=== PATIENT | male | born 1945 | race Caucasian/White ===

== ENCOUNTER 2018-10-31 03:51 | Emergency (ER) | payer MEDICARE ==
[2018-10-31] MEDS ORDERED: SODIUM CHLORIDE 0.9% 1,000 ML IV STA (04:01)
[2018-10-31] MEDS ORDERED: MORPHINE SULFATE 4 MG/ML SYRINGE IV STA (04:01)
--- NOTE | 2018-10-31 04:02 | ED ---
Abdominal Pain HPI - General Chief Complaint: Abdominal Pain Stated Complaint: Poss appendicitis Time Seen by Provider: 10/31/18 03:58 Source: patient, family, RN notes reviewed, old records reviewed Mode of arrival: wheelchair Limitations: no limitations - History of Present Illness Initial Comments: This is a 73-year-old male the ER for evaluation. Patient resents today for evaluation of right-sided flank pain. Right-sided abdominal pain. Patient states he has history of kidney stones was concern for appendicitis since had fever and chills. Nausea no vomiting loose bowel movements. No travel history no sick contacts. No prior surgical history. No modifying factors for pain or symptoms at home. MD Complaint: abdominal pain, flank pain (Right-sided) -: hour(s) Location: RLQ, suprapubic Radiation: R flank Migration to: RLQ, suprapubic Severity: moderate Severity scale (1-10): 4 Quality: aching Consistency: constant Improves With: nothing Worsens With: nothing Associated Symptoms: nausea, vomiting, diarrhea - Related Data Allergies Allergy/AdvReac Type Severity Reaction Status Date / Time Penicillins Allergy Nausea & Verified 10/31/18 04:01 Vomiting Review of Systems ROS Statement: Those systems with pertinent positive or pertinent negative responses have been documented in the HPI. ROS Other: All systems not noted in ROS Statement are negative. Past Medical History Past Medical History: No Reported History History of Any Multi-Drug Resistant Organisms: None Reported Past Surgical History: Prostate Surgery Past Psychological History: No Psychological Hx Reported Smoking Status: Never smoker Past Alcohol Use History: None Reported Past Drug Use History: None Reported General Exam Limitations: no limitations General appearance: alert, in no apparent distress Head exam: Present: atraumatic, normocephalic, normal inspection Eye exam: Present: normal appearance, PERRL, EOMI. Absent: scleral icterus, conjunctival injection, periorbital swelling ENT exam: Present: normal exam, mucous membranes moist Neck exam: Present: normal inspection. Absent: tenderness, meningismus, lymphadenopathy Respiratory exam: Present: normal lung sounds bilaterally. Absent: respiratory distress, wheezes, rales, rhonchi, stridor Cardiovascular Exam: Present: regular rate, normal rhythm, normal heart sounds. Absent: systolic murmur, diastolic murmur, rubs, gallop, clicks GI/Abdominal exam: Present: soft, normal bowel sounds. Absent: distended, tenderness, guarding, rebound, rigid Extremities exam: Present: normal inspection, full ROM, normal capillary refill. Absent: tenderness, pedal edema, joint swelling, calf tenderness Back exam: Present: normal inspection Neurological exam: Present: alert, oriented X3, CN II-XII intact Psychiatric exam: Present: normal affect, normal mood Skin exam: Present: warm, dry, intact, normal color. Absent: rash Course Vital Signs 10/31/18 10/31/18 03:56 06:28 Temperature 97.8 F 98.9 F Pulse Rate 76 89 Respiratory 20 19 Rate Blood Pressure 166/84 147/85 O2 Sat by Pulse 97 98 Oximetry Medical Decision Making - Medical Decision Making 73 male the ER for evaluation of bowel pain flank pain. No kidney stones or acute findings found on CAT scan today. Patient does have some blood in the uri ne likely recently passed kidney stone oh. Patient given pain medication and pain control currently in no acute distress and can be discharged home - Lab Data Result diagrams: 10/31/18 04:05 10/31/18 04:05 Lab Results 10/31/18 10/31/18 10/31/18 Range/Units 04:05 04:05 04:05 WBC 9.2 (3.8-10.6) k/uL RBC 5.02 (4.30-5.90) m/uL Hgb 15.1 (13.0-17.5) gm/dL Hct 44.8 (39.0-53.0) % MCV 89.3 (80.0-100.0) fL MCH 30.0 (25.0-35.0) pg MCHC 33.6 (31.0-37.0) g/dL RDW 13.6 (11.5-15.5) % Plt Count 164 (150-450) k/uL Neutrophils % 81 % Lymphocytes % 14 % Monocytes % 4 % Eosinophils % 1 % Basophils % 0 % Neutrophils # 7.4 (1.3-7.7) k/uL Lymphocytes # 1.3 (1.0-4.8) k/uL Monocytes # 0.4 (0-1.0) k/uL Eosinophils # 0.1 (0-0.7) k/uL Basophils # 0.0 (0-0.2) k/uL Sodium 143 (137-145) mmol/L Potassium 3.4 L (3.5-5.1) mmol/L Chloride 107 (98-107) mmol/L Carbon Dioxide 27 (22-30) mmol/L Anion Gap 9 mmol/L BUN 19 (9-20) mg/dL Creatinine 0.98 (0.66-1.25) mg/dL Est GFR (CKD-EPI)AfAm 90 (>60 ml/min/1.73 sqM) Est GFR (CKD-EPI)NonAf 77 (>60 ml/min/1.73 sqM) Glucose 134 H (74-99) mg/dL Plasma Lactic Acid Abdulaziz 1.1 (0.7-2.0) mmol/L Calcium 9.9 (8.4-10.2) mg/dL Total Bilirubin 0.7 (0.2-1.3) mg/dL AST 25 (17-59) U/L ALT 22 (21-72) U/L Alkaline Phosphatase 89 (38-126) U/L Creatine Kinase 371 H (55-170) U/L Troponin I (0.000-0.034) ng/mL Total Protein 7.2 (6.3-8.2) g/dL Albumin 4.4 (3.5-5.0) g/dL Amylase 65 (30-110) U/L Lipase 107 (23-300) U/L Urine Color Urine Appearance (Clear) Urine pH (5.0-8.0) Ur Specific Cast[place] (1.001-1.035) Urine Protein (Negative) Urine Glucose (UA) (Negative) Urine Ketones (Negative) Urine Blood (Negative) Urine Nitrite (Negative) Urine Bilirubin (Negative) Urine Urobilinogen (<2.0) mg/dL Ur Leukocyte Esterase (Negative) Urine RBC (0-5) /hpf Urine WBC (0-5) /hpf Urine Mucus (None) /hpf 10/31/18 10/31/18 Range/Units 04:05 04:05 WBC (3.8-10.6) k/uL RBC (4.30-5.90) m/uL Hgb (13.0-17.5) gm/dL Hct (39.0-53.0) % MCV (80.0-100.0) fL MCH (25.0-35.0) pg MCHC (31.0-37.0) g/dL RDW (11.5-15.5) % Plt Count (150-450) k/uL Neutrophils % % Lymphocytes % % Monocytes % % Eosinophils % % Basophils % % Neutrophils # (1.3-7.7) k/uL Lymphocytes # (1.0-4.8) k/uL Monocytes # (0-1.0) k/uL Eosinophils # (0-0.7) k/uL Basophils # (0-0.2) k/uL Sodium (137-145) mmol/L Potassium (3.5-5.1) mmol/L Chloride (98-107) mmol/L Carbon Dioxide (22-30) mmol/L Anion Gap mmol/L BUN (9-20) mg/dL Creatinine (0.66-1.25) mg/dL Est GFR (CKD-EPI)AfAm (>60 ml/min/1.73 sqM) Est GFR (CKD-EPI)NonAf (>60 ml/min/1.73 sqM) Glucose (74-99) mg/dL Plasma Lactic Acid Abdulaziz (0.7-2.0) mmol/L Calcium (8.4-10.2) mg/dL Total Bilirubin (0.2-1.3) mg/dL AST (17-59) U/L ALT (21-72) U/L Alkaline Phosphatase (38-126) U/L Creatine Kinase (55-170) U/L Troponin I <0.012 (0.000-0.034) ng/mL Total Protein (6.3-8.2) g/dL Albumin (3.5-5.0) g/dL Amylase (30-110) U/L Lipase (23-300) U/L Urine Color Light Yellow Urine Appearance Clear (Clear) Urine pH 7.0 (5.0-8.0) Ur Specific [place] 1.016 (1.001-1.035) Urine Protein Trace H (Negative) Urine Glucose (UA) Negative (Negative) Urine Ketones 1+ H (Negative) Urine Blood Moderate H (Negative) Urine Nitrite Negative (Negative) Urine Bilirubin Negative (Negative) Urine Urobilinogen <2.0 (<2.0) mg/dL Ur Leukocyte Esterase Negative (Negative) Urine RBC >182 H (0-5) /hpf Urine WBC 1 (0-5) /hpf Urine Mucus Rare H (None) /hpf - Radiology Data Radiology results: report reviewed (CT abdomen pelvis negative for acute disease), image reviewed Disposition Clinical Impression: Kidney stones Disposition: HOME SELF-CARE Condition: Good Instructions (If sedation given, give patient instructions): Kidney Stones (ED) Is patient prescribed a controlled substance at d/c from ED?: No Referrals: None,Stated [Primary Care Provider] - 1-2 days
[2018-10-31] MEDS ORDERED: ONDANSETRON 4 MG/2 ML VIAL IVP STA ×2 (04:12→04:13)
[2018-10-31 04:38] LABS: Appearance,Urine Clear (Clear); Bilirubin,Urine Negative (Negative); Blood,Urine Moderate (Negative); Color,Urine Light Yellow; Glucose,Urine (UA) Negative (Negative); Ketones,Urine 1+ (Negative); Leukocyte Esterase,Urine Negative (Negative); Mucus,Urine Rare /hpf; Nitrite,Urine Negative (Negative); Protein,Urine Trace (Negative); RBC,Urine >182 /hpf (0-5); Specific Gravity,Urine 1.016 (1.001-1.035); Urobilinogen,Urine <2.0 mg/dL (<2.0); WBC,Urine 1 /hpf (0-5)
[2018-10-31 04:44] LABS: Albumin 4.4 g/dL (3.5-5.0); Calcium 9.9 mg/dL (8.4-10.2); Potassium 3.4 mmol/L (3.5-5.1); Total Bilirubin 0.7 mg/dL (0.2-1.3); Total Protein 7.2 g/dL (6.3-8.2)
[2018-10-31] MEDS ORDERED: HYDROmorphone 1 MG/ML 1 ML SYRINGE IVP STA (04:47)
[2018-10-31 04:50] LABS: Basophils % (A) 0 %; Eosinophils # (A) 0.1 k/uL (0-0.7); Eosinophils % (A) 1 %; HCT 44.8 % (39.0-53.0); HGB 15.1 gm/dL (13.0-17.5); Lymphocytes # (A) 1.3 k/uL (1.0-4.8); Lymphocytes % (A) 14 %; MCHC 33.6 g/dL (31.0-37.0); MCV 89.3 fL (80.0-100.0); Mean Platelet Volume 7.2; Monocytes # (A) 0.4 k/uL (0-1.0); Monocytes % (A) 4 %; Neutrophils # (A) 7.4 k/uL (1.3-7.7); Neutrophils % (A) 81 %; Platelet Count 164 k/uL (150-450); RBC 5.02 m/uL (4.30-5.90); RDW 13.6 % (11.5-15.5); WBC 9.2 k/uL (3.8-10.6)
--- NOTE | 2018-10-31 05:40 | CT ---
EXAM: CT Abdomen and Pelvis With Intravenous Contrast CLINICAL HISTORY: RLQ pain, Bur727/100ml, no previous DLP 726.1 Hx of prostate remove TECHNIQUE: Axial computed tomography images of the abdomen and pelvis with intravenous contrast. CTDI is 13.5 mGy and DLP is 726.1 mGy-cm. This CT exam was performed using one or more of the following dose reduction techniques: automated exposure control, adjustment of the mA and/or kV according to patient size, and/or use of iterative reconstruction technique. Coronal and sagittal reconstructions are performed. 444 images received COMPARISON: No relevant prior studies available. FINDINGS: Lung bases: Moderate amount of bibasilar atelectasis. Pneumonia is more of a concern on the left. ABDOMEN: Liver: Unremarkable. No mass. Gallbladder and bile ducts: Unremarkable. No calcified stones. No ductal dilation. Pancreas: Unremarkable. No mass. No ductal dilation. Spleen: Unremarkable. No splenomegaly. Adrenals: Unremarkable. No mass. Kidneys and ureters: Nonobstructing bilateral renal stones . Largest is in right kidney measuring up to 7 mm. Right renal cysts. Largest measures about 3 cm in largest dimension. Stomach and bowel: Unremarkable. No obstruction. No mucosal thickening. PELVIS: Appendix: No findings to suggest acute appendicitis. Bladder: Unremarkable. No mass. Reproductive: Unremarkable as visualized. ABDOMEN and PELVIS: Intraperitoneal space: Unremarkable. No free air. No significant fluid collection. Bones/joints: Osteopenia. Mild to moderate degenerative changes. No acute fracture. No dislocation. Soft tissues: Unremarkable. Vasculature: Unremarkable. No abdominal aortic aneurysm. Lymph nodes: Unremarkable. No enlarged lymph nodes. Other findings: Midline abdominal scar. IMPRESSION: 1. Nonobstructing bilateral renal stones . 2. Moderate amount of bibasilar atelectasis. Pneumonia is more of a concern on the left.
[2018-10-31] MEDS ORDERED: TAMSULOSIN 0.4 MG CAP.ER.24H PO STA (05:53)
[2018-10-31] MEDS ORDERED: ACET/COD 300 MG/30 MG STARTER PACK 6 TAB BTL PO STA (05:53)
[2018-10-31] MEDS ORDERED: Acetaminophen-Codeine 300-30mg TAB PO STA (05:53)
[2018-10-31] MEDS ORDERED: KETOROLAC 30 MG/ML 1 ML VIAL IVP STA (05:53)
[2018-10-31 06:29] VITALS: BP 147/85; PULSE 89; RESP 19; TEMP 98.9
== END 2018-10-31 06:29 | disposition home or self-care (01) ==
LOC: EC 03:51
DX: N20.0 Calculus of kidney (principal); R19.7 Diarrhea, unspecified; Z88.0 Allergy status to penicillin
CPT/HCPCS: 36415; 80053; 82150; 82550; 83605; 83690; 84484; 85025; 81001; 87086; 74177; 99285; 96374; 96375 ×3; 96361; J2270; J2405; J1885; J1170; Q9967

== ENCOUNTER 2019-02-05 20:44 | Emergency (ER) | payer MEDICARE ==
[2019-02-05] MEDS ORDERED: diphenhydrAMINE 50 MG/ML 1 ML VIAL IVP STA (21:19)
[2019-02-05] MEDS ORDERED: SODIUM CHLORIDE 0.9% 1,000 ML IV ONE (21:19)
[2019-02-05] MEDS ORDERED: methylPREDNISolone SOD SUCCI 125 MG/2 ML VIAL IV STA (21:19)
[2019-02-05] MEDS ORDERED: FAMOTIDINE 20 MG/2 ML VIAL IV STA (21:19)
[2019-02-05] MEDS ORDERED: ASPIRIN-ACET-CAFF 250-250-65MG 1 EACH TAB PO STA (23:35)
--- NOTE | 2019-02-05 23:35 | ED ---
Allergic Reaction HPI - General Chief complaint: Allergic Reaction Stated complaint: Syncope,20+ Bee stings Time Seen by Provider: 02/05/19 21:19 Source: patient, family Mode of arrival: ambulatory Limitations: no limitations - History of Present Illness Initial Comments: 73-year-old male patient presents to the emergency department today for evaluation after being stung upwards of 20 times by bees or wasps. Patient states this occurred approximately one hour ago. Patient states he's been feeling dizzy and faint. Patient states he did have a syncopal episode. Patient states he is experiencing generalized itching, burning, and stinging to his skin. Denies any lip or tongue swelling. Denies any throat swelling or shortness of breath. Patient states he has been stung in the past and had local reactions only. Patient states he did take 50 mg of Benadryl prior to arrival. He denies any chest pain or abdominal pain. Patient denies any recent fever, chills, nausea, vomiting, diarrhea, constipation, back pain, numbness, tingling, hematuria, dysuria, urinary urgency, urinary frequency, headache, visual changes, or any other complaints. - Related Data Previous Rx's Medication Instructions Recorded EPINEPHrine [Epipen 2-Chuy] 0.3 mg IM ONCE PRN #1 pack 02/05/19 Famotidine [Pepcid] 20 mg PO DAILY #5 tablet 02/05/19 predniSONE 50 mg PO DAILY #5 tablet 02/05/19 Allergies Allergy/AdvReac Type Severity Reaction Status Date / Time Penicillins Allergy Nausea & Verified 02/05/19 21:14 Vomiting Review of Systems ROS Statement: Those systems with pertinent positive or pertinent negative responses have been documented in the HPI. ROS Other: All systems not noted in ROS Statement are negative. Past Medical History Past Medical History: GERD/Reflux History of Any Multi-Drug Resistant Organisms: None Reported Past Surgical History: Prostate Surgery Past Psychological History: No Psychological Hx Reported Smoking Status: Never smoker Past Alcohol Use History: None Reported Past Drug Use History: None Reported General Exam Limitations: no limitations General appearance: alert, in no apparent distress, other (This is a well- developed, well-nourished elderly male patient in no acute distress. Vital signs upon presentation are temperature 97.8F, pulse 127, respirations 22, blood pressure 94/60, pulse ox 96% on room air.) Eye exam: Present: normal appearance, PERRL, EOMI. Absent: scleral icterus, conjunctival injection, periorbital swelling ENT exam: Present: normal exam, normal oropharynx, mucous membranes moist Respiratory exam: Present: normal lung sounds bilaterally. Absent: respiratory distress, wheezes, rales, rhonchi, stridor Cardiovascular Exam: Present: normal rhythm, tachycardia, normal heart sounds. Absent: systolic murmur, diastolic murmur, rubs, gallop, clicks GI/Abdominal exam: Present: soft, normal bowel sounds. Absent: distended, tenderness, guarding, rebound, rigid Neurological exam: Present: alert, oriented X3, CN II-XII intact Psychiatric exam: Present: normal affect, normal mood Skin exam: Present: warm, dry, intact, normal color, rash (Generalized erythema) Course Vital Signs 02/05/19 02/05/19 02/05/19 21:10 21:33 21:57 Temperature 97.8 F Pulse Rate 127 H 100 97 Pulse Rate [ 125 H Gluer And Wedger ] Respiratory 22 16 16 Rate Blood Pressure 94/60 112/83 118/96 O2 Sat by Pulse 96 96 99 Oximetry 02/05/19 23:43 Temperature 97.5 F L Pulse Rate 94 Pulse Rate [ Gluer And Wedger ] Respiratory 18 Rate Blood Pressure 120/88 O2 Sat by Pulse 95 Oximetry Medical Decision Making - Medical Decision Making 73-year-old male patient presents to the emergency department today for evaluation after being stung upwards of 20 times by bees or wasps. Patient did have a syncopal episode after this happened. He is reporting feeling dizzy with burning and itching to his skin. Physical examination did reveal generalized skin erythema. No lip or tongue swelling. Lungs are clear to auscultation with good air movement. Blood pressure is slightly low at 94/50 upon arrival. He is tachycardic in the 120s. Patient had an IV started, EKG performed, and medications given. Upon reevaluation patient is reporting improve symptoms. He is breathing without difficulty. Vital signs have improved. Patient is requesting discharge home at this time. He'll be discharged with prescriptions for Pepcid, prednisone, and epi-pens. He is instructed to take Benadryl every 6 hours as needed. He is instructed to follow-up with his primary care physician for recheck in 1-2 days. Return parameters were discussed in detail. He is urged to call an ambulance if symptoms return or worsen. He verbalizes understanding and agrees this plan. - EKG Data -: EKG Interpreted by Me EKG Comments: EKG obtained at 2124 shows sinus tachycardia with a ventricular rate of 122, MD interval 140, QRS duration 82, QT 334, QTC 475. No evidence of ST elevation or depression. Disposition Clinical Impression: Allergic reaction to bee sting Disposition: HOME SELF-CARE Condition: Good Instructions (If sedation given, give patient instructions): Insect Bite or Sting (ED), General Allergic Reaction (ED) Additional Instructions: Take medications as directed. Continue Benadryl every 6 hours as needed for symptom relief. Use EpiPen as needed. Follow-up with your primary care physician for recheck in 1-2 days. Return to the emergency department or call ambulance immediately for any new, worsening, or concerning symptoms. Prescriptions: EPINEPHrine [Epipen 2-Chuy] 0.3 mg IM ONCE PRN #1 pack PRN Reason: Anaphylaxis Famotidine [Pepcid] 20 mg PO DAILY #5 tablet predniSONE 50 mg PO DAILY #5 tablet Is patient prescribed a controlled substance at d/c from ED?: No Referrals: Zacarias Lay MD [Primary Care Provider] - 1-2 days Time of Disposition: 23:35
[2019-02-05 23:45] VITALS: BP 120/88; PULSE 94; RESP 18; TEMP 97.5
== END 2019-02-05 23:51 | disposition home or self-care (01) ==
LOC: EC 20:44
DX: T63.441A Toxic effect of venom of bees, accidental (unintentional), initial encounter (principal); R03.1 Nonspecific low blood-pressure reading; R00.0 Tachycardia, unspecified; Z88.0 Allergy status to penicillin
CPT/HCPCS: 99285; 96374; 96375 ×2; 96361; J1200; J2930

== ENCOUNTER 2019-04-23 19:33 | Emergency (ER) | payer MEDICARE ==
[2019-04-23 19:43] VITALS: RESP 18
[2019-04-23] MEDS ORDERED: SODIUM CHLORIDE 0.9% 1,000 ML IV STA ×2 (20:42)
[2019-04-23] MEDS ORDERED: KETOROLAC 30 MG/ML 1 ML VIAL IVP STA (20:42)
[2019-04-23 20:53] LABS: Appearance,Urine Clear (Clear); Bilirubin,Urine Negative (Negative); Blood,Urine Large (Negative); Color,Urine Light Red; Glucose,Urine (UA) Negative (Negative); Ketones,Urine 1+ (Negative); Leukocyte Esterase,Urine Trace (Negative); Nitrite,Urine Negative (Negative); PH, Urine 6.5 (5.0-8.0); Protein,Urine 1+ (Negative); RBC,Urine >182 /hpf (0-5); Specific Gravity,Urine 1.017 (1.001-1.035); Urobilinogen,Urine <2.0 mg/dL (<2.0)
[2019-04-23 21:23] LABS: Basophils # (A) 0.1 k/uL (0-0.2); Basophils % (A) 1 %; Eosinophils % (A) 1 %; HCT 48.4 % (39.0-53.0); HGB 16.3 gm/dL (13.0-17.5); Lymphocytes # (A) 0.7 k/uL (1.0-4.8); Lymphocytes % (A) 8 %; MCH 31.3 pg (25.0-35.0); MCHC 33.7 g/dL (31.0-37.0); MCV 92.8 fL (80.0-100.0); Mean Platelet Volume 6.2; Monocytes # (A) 0.3 k/uL (0-1.0); Monocytes % (A) 3 %; Neutrophils # (A) 7.7 k/uL (1.3-7.7); Neutrophils % (A) 88 %; Platelet Count 205 k/uL (150-450); RBC 5.22 m/uL (4.30-5.90); RDW 12.2 % (11.5-15.5); WBC 8.8 k/uL (3.8-10.6)
--- NOTE | 2019-04-23 21:24 | XR ---
EXAMINATION TYPE: XR KUB DATE OF EXAM: 04/23/2019 COMPARISON: NONE HISTORY: Pain TECHNIQUE: Single supine KUB image of the abdomen is obtained FINDINGS: Small bowel demonstrates no evidence for dilatation or air fluid levels. Gas and fecal material is seen in non-distended colon. No convincing evidence for pneumoperitoneum. No unusual calcifications. The lung bases are clear. The osseous structures are intact. IMPRESSION: 1. Overall nonobstructive bowel gas pattern.
[2019-04-23 21:28] LABS: ALT 30 U/L (21-72); AST 25 U/L (17-59); African American GFR (CKD) >90 (>60 ml/min/1.73 sqM); Albumin 4.7 g/dL (3.5-5.0); Alkaline Phosphatase 84 U/L (38-126); Anion Gap 8 mmol/L; Blood Urea Nitrogen 24 mg/dL (9-20); Calcium 10.2 mg/dL (8.4-10.2); Carbon Dioxide 29 mmol/L (22-30); Chloride 104 mmol/L (98-107); Glucose 135 mg/dL (74-99); Non-African American GFR(CKD) 86 (>60 ml/min/1.73 sqM); Potassium 3.9 mmol/L (3.5-5.1); Sodium 141 mmol/L (137-145); Total Bilirubin 0.6 mg/dL (0.2-1.3); Total Protein 7.8 g/dL (6.3-8.2)
--- NOTE | 2019-04-23 21:30 | CT ---
EXAMINATION TYPE: CT abdomen pelvis wo con DATE OF EXAM: 04/23/2019 COMPARISON: 10/31/2018 HISTORY: Left sided flank pain. CT DLP: 367.4 mGycm Examination of the solid and hollow viscera is limited given the lack of contrast. FINDINGS: LUNG BASES: No evidence for nodule. No evidence for infiltrate. Chronic elevation left hemidiaphragm. LIVER/GB: The gallbladder is surgically absent. No space-occupying hepatic lesion. PANCREAS: No pancreatic mass identified. No inflammatory process seen. SPLEEN: No evidence for splenomegaly. No intrasplenic lesions seen. ADRENALS: No adrenal nodules identified. No evidence for thickening. KIDNEYS: 4 mm calculus distal left ureter at the approximate S2 level resulting in mild left-sided hy dronephrosis. Nonobstructing calculi right kidney. Right renal cystic lesion measuring 2.8 cm. BOWEL: Appendix has a normal appearance. No evidence of bowel obstruction. No inflammatory process. Lymph nodes: No evidence for adenopathy greater than 1 cm. Abdominal aorta: Atheromatous changes seen. No evidence for aneurysm. Genital organs: No significant abnormality. Other: No significant abnormality. IMPRESSION: 4 mm calculus distal left ureter at the approximate S2 level resulting in mild left-sided hydronephro sis.
[2019-04-23] MEDS ORDERED: TAMSULOSIN 0.4 MG CAP.ER.24H PO STA (22:21)
[2019-04-23 22:37] VITALS: BP 127/78; PULSE 82; TEMP 98
--- NOTE | 2019-04-23 22:44 | ED ---
Abdominal Pain HPI - General Chief Complaint: Abdominal Pain Stated Complaint: kidney stones Time Seen by Provider: 04/23/19 20:17 Source: patient, RN notes reviewed Mode of arrival: ambulatory Limitations: no limitations - History of Present Illness Initial Comments: This is 73-year-old male with a history kidney stones who states he had the onset earlier today of left-sided flank pain feels very severe 13/10 severity he states it feels like previous kidney stones he also had gross hematuria. He denies any fevers chills nausea vomiting sweats or other symptoms. MD Complaint: flank pain - Related Data Previous Rx's Medication Instructions Recorded EPINEPHrine [Epipen 2-Chuy] 0.3 mg IM ONCE PRN #1 pack 02/05/19 Famotidine [Pepcid] 20 mg PO DAILY #5 tablet 02/05/19 predniSONE 50 mg PO DAILY #5 tablet 02/05/19 Ketorolac [Toradol] 10 mg PO Q6HR #20 tab 04/23/19 Tamsulosin HCl [Flomax] 0.4 mg PO DAILY #7 capsule 04/23/19 Allergies Allergy/AdvReac Type Severity Reaction Status Date / Time Penicillins Allergy Nausea & Verified 04/23/19 19:43 Vomiting codeine AdvReac Abdominal Verified 04/23/19 19:43 Pain Review of Systems ROS Statement: Those systems with pertinent positive or pertinent negative responses have been documented in the HPI. ROS Other: All systems not noted in ROS Statement are negative. Past Medical History Past Medical History: GERD/Reflux History of Any Multi-Drug Resistant Organisms: None Reported Past Surgical History: Prostate Surgery Past Psychological History: No Psychological Hx Reported Smoking Status: Never smoker Past Alcohol Use History: None Reported Past Drug Use History: None Reported General Exam - General Exam Comments Initial Comments: This is a well-developed well-nourished awake alert oriented 3 male Limitations: no limitations General appearance: alert, in distress Head exam: Present: atraumatic, normocephalic, normal inspection Eye exam: Present: normal appearance, PERRL, EOMI. Absent: scleral icterus, conjunctival injection, periorbital swelling ENT exam: Present: normal exam, mucous membranes moist Neck exam: Present: normal inspection. Absent: tenderness, meningismus, lympha denopathy Respiratory exam: Present: normal lung sounds bilaterally. Absent: respiratory distress, wheezes, rales, rhonchi, stridor Cardiovascular Exam: Present: regular rate, normal rhythm, normal heart sounds. Absent: systolic murmur, diastolic murmur, rubs, gallop, clicks GI/Abdominal exam: Present: soft, tenderness (Very minimal tenderness palpation over left lower quadrant left flank area. No guarding rebound masses or bruits), normal bowel sounds. Absent: distended, guarding, rebound, rigid Extremities exam: Present: normal inspection, full ROM, normal capillary refill. Absent: tenderness, pedal edema, joint swelling, calf tenderness Back exam: Present: normal inspection, other (No overt CVA tenderness.) Neurological exam: Present: alert, oriented X3, CN II-XII intact Psychiatric exam: Present: normal affect, normal mood Skin exam: Present: warm, dry, intact, normal color. Absent: rash Course Vital Signs 04/23/19 04/23/19 19:40 22:37 Temperature 98.7 F 98 F Pulse Rate 80 82 Respiratory 18 18 Rate Blood Pressure 165/90 127/78 O2 Sat by Pulse 96 98 Oximetry Medical Decision Making - Medical Decision Making Patient did get relief from the pain he will be discharged with instructions increase oral fluids and medications as directed - Lab Data Result diagrams: 04/23/19 20:47 04/23/19 20:47 Lab Results 04/23/19 04/23/19 04/23/19 Range/Units 20:14 20:47 20:47 WBC 8.8 (3.8-10.6) k/uL RBC 5.22 (4.30-5.90) m/uL Hgb 16.3 (13.0-17.5) gm/dL Hct 48.4 (39.0-53.0) % MCV 92.8 (80.0-100.0) fL MCH 31.3 (25.0-35.0) pg MCHC 33.7 (31.0-37.0) g/dL RDW 12.2 (11.5-15.5) % Plt Count 205 (150-450) k/uL Neutrophils % 88 % Lymphocytes % 8 % Monocytes % 3 % Eosinophils % 1 % Basophils % 1 % Neutrophils # 7.7 (1.3-7.7) k/uL Lymphocytes # 0.7 L (1.0-4.8) k/uL Monocytes # 0.3 (0-1.0) k/uL Eosinophils # 0.0 (0-0.7) k/uL Basophils # 0.1 (0-0.2) k/uL Sodium 141 (137-145) mmol/L Potassium 3.9 (3.5-5.1) mmol/L Chloride 104 (98-107) mmol/L Carbon Dioxide 29 (22-30) mmol/L Anion Gap 8 mmol/L BUN 24 H (9-20) mg/dL Creatinine 0.87 (0.66-1.25) mg/dL Est GFR (CKD-EPI)AfAm >90 (>60 ml/min/1.73 sqM) Est GFR (CKD-EPI)NonAf 86 (>60 ml/min/1.73 sqM) Glucose 135 H (74-99) mg/dL Calcium 10.2 (8.4-10.2) mg/dL Total Bilirubin 0.6 (0.2-1.3) mg/dL AST 25 (17-59) U/L ALT 30 (21-72) U/L Alkaline Phosphatase 84 (38-126) U/L Total Protein 7.8 (6.3-8.2) g/dL Albumin 4.7 (3.5-5.0) g/dL Lipase 78 (23-300) U/L Urine Color Light Red Urine Appearance Clear (Clear) Urine pH 6.5 (5.0-8.0) Ur Specific Chambers 1.017 (1.001-1.035) Urine Protein 1+ H (Negative) Urine Glucose (UA) Negative (Negative) Urine Ketones 1+ H (Negative) Urine Blood Large H (Negative) Urine Nitrite Negative (Negative) Urine Bilirubin Negative (Negative) Urine Urobilinogen <2.0 (<2.0) mg/dL Ur Leukocyte Esterase Trace H (Negative) Urine RBC >182 H (0-5) /hpf - Radiology Data Radiology results: report reviewed (Imaging was reviewed and report reviewed evidence of a 4 mm left ureterolithiasis at the level of about L2. Very mild hydronephrosis), image reviewed Disposition Clinical Impression: Kidney stone on left side, Renal colic on left side, Hematuria Disposition: HOME SELF-CARE Condition: Good Instructions (If sedation given, give patient instructions): Kidney Stones (ED), Renal Colic (ED), Flank Pain (ED), Hematuria (ED) Prescriptions: Tamsulosin HCl [Flomax] 0.4 mg PO DAILY #7 capsule Ketorolac [Toradol] 10 mg PO Q6HR #20 tab Is patient prescribed a controlled substance at d/c from ED?: No Referrals: Zacarias Lay MD [Primary Care Provider] - 1-2 days
== END 2019-04-23 22:56 | disposition home or self-care (01) ==
LOC: EC 19:33
DX: N20.0 Calculus of kidney (principal); Z88.5 Allergy status to narcotic agent; Z88.0 Allergy status to penicillin
CPT/HCPCS: 36415; 80053; 83690; 85025; 81001; 87086; 74018; 74176; 99284; 96374; 96361 ×2; J1885

== ENCOUNTER → 2019-08-08 | Day surgery (SDC) | payer MEDICARE ==
[2019-08-07 11:16] VITALS: BMI 20.2
[~2019-08-08] MED LIST: LACTATED RINGERS 1,000 ML IV SCH; LIDOCAINE 1% (10MG/ML) FOR IV START INTRADERMA PRN; PROPOFOL 10 MG/ML 20 ML VIAL IV ONE
[2019-08-08 08:49] VITALS: TEMP 98.1
[2019-08-08 08:51] LABS: Glucose,Whole Blood 92 mg/dL (75-99)
--- NOTE | 2019-08-08 09:13 | P.PCN ---
Date of Procedure: 08/08/19 Procedure(s) Performed: BRIEF HISTORY: Patient is a 73-year-old pleasant white male scheduled for an elective colonoscopy as a part of evaluation of positive cologuard. His last colonoscopy was 10 years ago. PROCEDURE PERFORMED: Colonoscopy. PREOPERATIVE DIAGNOSIS: Positive cologuard. IV sedation per Anesthesia. PROCEDURE: After informed consent was obtained, the patient, was brought into the endoscopy unit. IV sedation was administered by Anesthesia under continuous monitoring. Digital rectal examination was normal. Initially the Olympus CF-160 flexible video colonoscope was then inserted in the rectum, gradually advanced into the cecum without any difficulty. Careful examination was performed as the scope was gradually being withdrawn. Ileocecal valve and the appendiceal orifice were visualized and appeared normal. Prep was excellent. Mucosa of the cecum, ascending colon, transverse colon, descending colon, sigmoid colon, and rectum appeared normal. Retroflexion was performed in the rectum and no lesions were seen. Scattered sigmoid diverticulosis The patient tolerated the procedure well. IMPRESSION: Normal-appearing colon from rectum to cecum with no evidence of colorectal neoplasia Scattered sigmoidal diverticulosis. RECOMMENDATIONS: Findings of this examination were discussed with the patient as well as his family. He was advised to have a repeat screening colonoscopy in 10 years.
[2019-08-08 09:23] LABS: Glucose,Whole Blood 91 mg/dL (75-99)
[2019-08-08 09:30] VITALS: BP 114/79; PULSE 95; RESP 18
== END ==
LOC: ORWHC2ENDO 08:06
PROVIDERS: ATTEND Internal Medicine Gastroenterology
DX: K57.30 Diverticulosis of large intestine without perforation or abscess without bleeding (principal); K64.9 Unspecified hemorrhoids; M19.90 Unspecified osteoarthritis, unspecified site; G43.909 Migraine, unspecified, not intractable, without status migrainosus; K21.9 Gastro-esophageal reflux disease without esophagitis; C61 Malignant neoplasm of prostate; E16.2 Hypoglycemia, unspecified; Z88.0 Allergy status to penicillin; Z88.5 Allergy status to narcotic agent; Z87.442 Personal history of urinary calculi; Z79.899 Other long term (current) drug therapy
CPT/HCPCS: 45378; J2704

== ENCOUNTER → 2020-09-11 | Outpatient (CLI) | payer MEDICARE ==
--- NOTE | 2020-09-11 15:09 | NM ---
EXAMINATION TYPE: NM bone scan whole body DATE OF EXAM: 09/11/2020 COMPARISON: NONE HISTORY: Prostate cancer Delayed whole-body scanning was performed following the injection of 22.4 mCi Tc 99m MDP. Images acq uired 3 hours post injection. FINDINGS: 1. Soft tissue contamination in the scrotal region. Faint uptake throughout the thoracic mid and lowe r lumbar spine. Finding nonspecific but likely. Abnormal uptake involving the left knee likely post a rthritic. Abnormal uptake in the region of the first bilaterally likely related uptake seen in the st ernoclavicular joints and shoulders bilaterally likely post arthritic. IMPRESSION: 1. Nonspecific mild intensity uptake involving the vertebral column likely degenerative. 2. post arthritic changes involving the left knee and bilateral first MTP 3. No diagnostic evidence of metastasis
== END | disposition home or self-care (01) ==
LOC: RADNMMAIN 11:19
PROVIDERS: ATTEND Family Medicine
DX: M13.862 Other specified arthritis, left knee (principal); R93.7 Abnormal findings on diagnostic imaging of other parts of musculoskeletal system; C61 Malignant neoplasm of prostate
CPT/HCPCS: 78306; A9503

== ENCOUNTER 2020-12-28 17:14 | Inpatient (IN) | payer MEDICARE ==
[2020-12-28] MEDS ORDERED: SODIUM CHLORIDE 0.9% 500 ML 500 ML IV STA (18:22)
[2020-12-28] MEDS ORDERED: KETOROLAC 15 MG/ML 1 ML VIAL IVP STA (18:24)
--- NOTE | 2020-12-28 18:33 | ED ---
Abdominal Pain HPI - General Chief Complaint: Abdominal Pain Stated Complaint: Abd pain, shoulder pain Source: patient, family, RN notes reviewed, old records reviewed Mode of arrival: wheelchair - History of Present Illness Initial Comments: 75-year-old white male, alert and oriented 4, presents to the emergency room with approximately 2 hours of sudden onset abdominal pain. Patient states that it radiates to his left flank. States that it feels like kidney stones and has had in the past however much worse. Patient states that the pain is throughout his abdomen now radiating into his chest. Patient states that the pain is so bad he feels like he is going to pass out. He is unable to lay back on cart, he states that the pain is worse when he tries to lay flat. Heart rate is 73 blood pressures 120/85. Patient has a history of kidney stones, headaches GERD and cancer. Surgical history of hernia and prostate. He is a nonsmoker. MD Complaint: abdominal pain, flank pain (Left) -: hour(s) (2) Location: diffuse, L flank Radiation: chest Severity: severe Severity scale (1-10): 8 Improves With: nothing Worsens With: other (Lying flat) Associated Symptoms: other (Lightheaded) - Related Data Home Medications Medication Instructions Recorded Confirmed [id number] 1 each PO Q6HR 08/07/19 08/07/19 [Excedrin] Esomeprazole Magnesium [NexIUM] 20 mg PO DAILY 08/07/19 08/08/19 Multivitamins, Thera [Multivitamin 1 tab PO DAILY 08/07/19 08/07/19 (formulary)] Allergies Allergy/AdvReac Type Severity Reaction Status Date / Time Penicillins Allergy Nausea & Verified 08/08/19 08:49 Vomiting,hives codeine AdvReac Abdominal Verified 08/08/19 08:49 Pain Review of Systems ROS Statement: Those systems with pertinent positive or pertinent negative responses have been documented in the HPI. ROS Other: All systems not noted in ROS Statement are negative. Past Medical History Past Medical History: Cancer, GERD/Reflux, Osteoarthritis (OA), Prostate Disorder, Skin Disorder Additional Past Medical History / Comment(s): hx migraines, ulcers, hx kidney stones, recurrent rash, hypoglycemia, hx prostate cancer History of Any Multi-Drug Resistant Organisms: None Reported Past Surgical History: Hernia Repair, Prostate Surgery, Tonsillectomy Additional Past Surgical History / Comment(s): surgery for muscles on left arm Past Anesthesia/Blood Transfusion Reactions: No Reported Reaction Past Psychological History: No Psychological Hx Reported Smoking Status: Never smoker Past Alcohol Use History: None Reported Past Drug Use History: None Reported - Past Family History Mother Family Medical History: No Reported History General Exam General appearance: alert, in distress (Abdominal pain) Head exam: Present: atraumatic, normocephalic, normal inspection Eye exam: Present: normal appearance, PERRL, EOMI. Absent: scleral icterus, conjunctival injection, periorbital swelling Pupils: Present: normal accommodation ENT exam: Present: normal exam, normal oropharynx, mucous membranes moist Neck exam: Present: normal inspection, full ROM. Absent: tenderness, meningismus, lymphadenopathy, thyromegaly Respiratory exam: Present: normal lung sounds bilaterally. Absent: respiratory distress, wheezes, rales, rhonchi, stridor, chest wall tenderness, accessory muscle use, decreased breath sounds, prolonged expiratory Cardiovascular Exam: Present: regular rate, normal rhythm, normal heart sounds. Absent: systolic murmur, diastolic murmur, rubs, gallop, clicks GI/Abdominal exam: Present: soft, tenderness, normal bowel sounds, hernia (umbilical). Absent: distended, guarding, rebound, rigid Rectal exam: Present: deferred Extremities exam: Present: normal inspection, full ROM, normal capillary refill. Absent: tenderness, pedal edema, joint swelling, calf tenderness Back exam: Present: normal inspection, CVA tenderness (L). Absent: tenderness, CVA tenderness (R), muscle spasm, vertebral tenderness Neurological exam: Present: alert, oriented X3, CN II-XII intact Psychiatric exam: Present: normal mood, anxious Skin exam: Present: warm, diaphoretic (clammy), pallor. Absent: cyanosis Course Vital Signs 12/28/20 12/28/20 12/28/20 17:31 19:00 19:10 Temperature 98.1 F Pulse Rate 73 81 92 Respiratory 16 24 24 Rate Blood Pressure 120/85 86/59 114/82 O2 Sat by Pulse 98 90 L 92 L Oximetry 12/28/20 12/28/20 12/28/20 19:19 19:38 19:51 Temperature 97.4 F L Pulse Rate 94 105 H 101 H Respiratory 22 18 18 Rate Blood Pressure 124/79 141/87 O2 Sat by Pulse 90 L 95 95 Oximetry Medical Decision Making - Medical Decision Making WBC count 6.7, hemoglobin and hematocrit is 16 and 50 respectively. Lactic acid is 1.7, troponin is negative at 0.012. EKG shows sinus rhythm with no ST elevation or acute changes. UA shows small amount of blood negative for ketones nitrites or leukocyte esterase. CT the abdomen shows free air, blood pressure is now stable at 124/79. Patient states that the pain is better after fentanyl and morphine, however he complains of being cold, repeat temperature is 97. Dr. Chapman at bedside to evaluate patient. Surgery contacted. Patient will be admitted - Lab Data Result diagrams: 12/28/20 18:43 12/28/20 18:43 Lab Results 12/28/20 12/28/20 12/28/20 Range/Units 18:43 18:43 18:43 WBC 6.7 (3.8-10.6) k/uL RBC 5.17 (4.30-5.90) m/uL Hgb 16.4 (13.0-17.5) gm/dL Hct 50.3 (39.0-53.0) % MCV 97.3 (80.0-100.0) fL MCH 31.8 (25.0-35.0) pg MCHC 32.6 (31.0-37.0) g/dL RDW 12.5 (11.5-15.5) % Plt Count 249 (150-450) k/uL MPV 6.9 Neutrophils % 65 % Lymphocytes % 27 % Monocytes % 5 % Eosinophils % 1 % Basophils % 0 % Neutrophils # 4.4 (1.3-7.7) k/uL Lymphocytes # 1.8 (1.0-4.8) k/uL Monocytes # 0.3 (0-1.0) k/uL Eosinophils # 0.1 (0-0.7) k/uL Basophils # 0.0 (0-0.2) k/uL PT (9.0-12.0) sec INR (<1.2) APTT (22.0-30.0) sec Sodium 143 (137-145) mmol/L Potassium 3.8 (3.5-5.1) mmol/L Chloride 108 H (98-107) mmol/L Carbon Dioxide 26 (22-30) mmol/L Anion Gap 9 mmol/L BUN 30 H (9-20) mg/dL Creatinine 1.00 (0.66-1.25) mg/dL Est GFR (CKD-EPI)AfAm 85 (>60 ml/min/1.73 sqM) Est GFR (CKD-EPI)NonAf 74 (>60 ml/min/1.73 sqM) Glucose 142 H (74-99) mg/dL Plasma Lactic Acid Abdulaziz (0.7-2.0) mmol/L Calcium 9.5 (8.4-10.2) mg/dL Total Bilirubin 0.5 (0.2-1.3) mg/dL AST 29 (17-59) U/L ALT 18 (4-49) U/L Alkaline Phosphatase 82 (38-126) U/L Troponin I (0.000-0.034) ng/mL Total Protein 6.9 (6.3-8.2) g/dL Albumin 4.2 (3.5-5.0) g/dL Amylase 68 (30-110) U/L Lipase 227 (23-300) U/L Urine Color Yellow Urine Appearance Clear (Clear) Urine pH 5.5 (5.0-8.0) Ur Specific Warren 1.034 (1.001-1.035) Urine Protein 1+ H (Negative) Urine Glucose (UA) Negative (Negative) Urine Ketones Negative (Negative) Urine Blood Small H (Negative) Urine Nitrite Negative (Negative) Urine Bilirubin Negative (Negative) Urine Urobilinogen 3.0 (<2.0) mg/dL Ur Leukocyte Esterase Negative (Negative) Urine RBC 26 H (0-5) /hpf Urine WBC 1 (0-5) /hpf Ur Squamous Epith Cells <1 (0-4) /hpf Hyaline Casts 7 H (0-2) /lpf Urine Mucus Few H (None) /hpf 12/28/20 12/28/20 12/28/20 Range/Units 18:43 18:43 18:43 WBC (3.8-10.6) k/uL RBC (4.30-5.90) m/uL Hgb (13.0-17.5) gm/dL Hct (39.0-53.0) % MCV (80.0-100.0) fL MCH (25.0-35.0) pg MCHC (31.0-37.0) g/dL RDW (11.5-15.5) % Plt Count (150-450) k/uL MPV Neutrophils % % Lymphocytes % % Monocytes % % Eosinophils % % Basophils % % Neutrophils # (1.3-7.7) k/uL Lymphocytes # (1.0-4.8) k/uL Monocytes # (0-1.0) k/uL Eosinophils # (0-0.7) k/uL Basophils # (0-0.2) k/uL PT 9.7 (9.0-12.0) sec INR 0.9 (<1.2) APTT 22.3 (22.0-30.0) sec Sodium (137-145) mmol/L Potassium (3.5-5.1) mmol/L Chloride (98-107) mmol/L Carbon Dioxide (22-30) mmol/L Anion Gap mmol/L BUN (9-20) mg/dL Creatinine (0.66-1.25) mg/dL Est GFR (CKD-EPI)AfAm (>60 ml/min/1.73 sqM) Est GFR (CKD-EPI)NonAf (>60 ml/min/1.73 sqM) Glucose (74-99) mg/dL Plasma Lactic Acid Abdulaziz 1.7 (0.7-2.0) mmol/L Calcium (8.4-10.2) mg/dL Total Bilirubin (0.2-1.3) mg/dL AST (17-59) U/L ALT (4-49) U/L Alkaline Phosphatase (38-126) U/L Troponin I <0.012 (0.000-0.034) ng/mL Total Protein (6.3-8.2) g/dL Albumin (3.5-5.0) g/dL Amylase (30-110) U/L Lipase (23-300) U/L Urine Color Urine Appearance (Clear) Urine pH (5.0-8.0) Ur Specific Warren (1.001-1.035) Urine Protein (Negative) Urine Glucose (UA) (Negative) Urine Ketones (Negative) Urine Blood (Negative) Urine Nitrite (Negative) Urine Bilirubin (Negative) Urine Urobilinogen (<2.0) mg/dL Ur Leukocyte Esterase (Negative) Urine RBC (0-5) /hpf Urine WBC (0-5) /hpf Ur Squamous Epith Cells (0-4) /hpf Hyaline Casts (0-2) /lpf Urine Mucus (None) /hpf 12/28/20 Range/Units 19:50 WBC (3.8-10.6) k/uL RBC (4.30-5.90) m/uL Hgb (13.0-17.5) gm/dL Hct (39.0-53.0) % MCV (80.0-100.0) fL MCH (25.0-35.0) pg MCHC (31.0-37.0) g/dL RDW (11.5-15.5) % Plt Count (150-450) k/uL MPV Neutrophils % % Lymphocytes % % Monocytes % % Eosinophils % % Basophils % % Neutrophils # (1.3-7.7) k/uL Lymphocytes # (1.0-4.8) k/uL Monocytes # (0-1.0) k/uL Eosinophils # (0-0.7) k/uL Basophils # (0-0.2) k/uL PT (9.0-12.0) sec INR (<1.2) APTT (22.0-30.0) sec Sodium (137-145) mmol/L Potassium (3.5-5.1) mmol/L Chloride (98-107) mmol/L Carbon Dioxide (22-30) mmol/L Anion Gap mmol/L BUN (9-20) mg/dL Creatinine (0.66-1.25) mg/dL Est GFR (CKD-EPI)AfAm (>60 ml/min/1.73 sqM) Est GFR (CKD-EPI)NonAf (>60 ml/min/1.73 sqM) Glucose (74-99) mg/dL Plasma Lactic Acid Abdulaziz 2.2 H* (0.7-2.0) mmol/L Calcium (8.4-10.2) mg/dL Total Bilirubin (0.2-1.3) mg/dL AST (17-59) U/L ALT (4-49) U/L Alkaline Phosphatase (38-126) U/L Troponin I (0.000-0.034) ng/mL Total Protein (6.3-8.2) g/dL Albumin (3.5-5.0) g/dL Amylase (30-110) U/L Lipase (23-300) U/L Urine Color Urine Appearance (Clear) Urine pH (5.0-8.0) Ur Specific Warren (1.001-1.035) Urine Protein (Negative) Urine Glucose (UA) (Negative) Urine Ketones (Negative) Urine Blood (Negative) Urine Nitrite (Negative) Urine Bilirubin (Negative) Urine Urobilinogen (<2.0) mg/dL Ur Leukocyte Esterase (Negative) Urine RBC (0-5) /hpf Urine WBC (0-5) /hpf Ur Squamous Epith Cells (0-4) /hpf Hyaline Casts (0-2) /lpf Urine Mucus (None) /hpf Disposition Clinical Impression: Acute abdomen Disposition: ADMITTED IP TO THIS [facility] Decision Date: 12/28/20 Decision Time: 19:58
[2020-12-28] MEDS ORDERED: fentaNYL (PF) 50 MCG/ML 2 ML AMP IVP STA ×2 (18:59→19:13)
[2020-12-28 19:03] LABS: Appearance,Urine Clear (Clear); Bilirubin,Urine Negative (Negative); Blood,Urine Small (Negative); Color,Urine Yellow; Glucose,Urine (UA) Negative (Negative); Hyaline Casts,Urine 7 /lpf (0-2); Ketones,Urine Negative (Negative); Leukocyte Esterase,Urine Negative (Negative); Mucus,Urine Few /hpf; Nitrite,Urine Negative (Negative); PH, Urine 5.5 (5.0-8.0); Protein,Urine 1+ (Negative); RBC,Urine 26 /hpf (0-5); Specific Gravity,Urine 1.034 (1.001-1.035); Squamous Epithelial Cell,Urine <1 /hpf (0-4); WBC,Urine 1 /hpf (0-5)
[2020-12-28 19:11] LABS: Albumin 4.2 g/dL (3.5-5.0); Calcium 9.5 mg/dL (8.4-10.2); Total Bilirubin 0.5 mg/dL (0.2-1.3); Total Protein 6.9 g/dL (6.3-8.2)
[2020-12-28 19:12] LABS: INR 0.9 (<1.2); Partial Thromboplastin Time 22.3 sec (22.0-30.0); Potassium 3.8 mmol/L (3.5-5.1); Prothrombin Time 9.7 sec (9.0-12.0)
[2020-12-28] MEDS ORDERED: MORPHINE SULFATE 4 MG/ML SYRINGE IVP STA (19:15)
[2020-12-28 19:30] LABS: Basophils % (A) 0 %; Eosinophils # (A) 0.1 k/uL (0-0.7); Eosinophils % (A) 1 %; HCT 50.3 % (39.0-53.0); HGB 16.4 gm/dL (13.0-17.5); Lymphocytes # (A) 1.8 k/uL (1.0-4.8); Lymphocytes % (A) 27 %; MCH 31.8 pg (25.0-35.0); MCHC 32.6 g/dL (31.0-37.0); MCV 97.3 fL (80.0-100.0); Mean Platelet Volume 6.9; Monocytes # (A) 0.3 k/uL (0-1.0); Monocytes % (A) 5 %; Neutrophils # (A) 4.4 k/uL (1.3-7.7); Neutrophils % (A) 65 %; Platelet Count 249 k/uL (150-450); RBC 5.17 m/uL (4.30-5.90); RDW 12.5 % (11.5-15.5); WBC 6.7 k/uL (3.8-10.6)
[2020-12-28] MEDS ORDERED: metroNIDAZOLE-NS PMX 500 MG in SALINE 1 100ML.BAG IVPB STA (19:34)
[2020-12-28] MEDS ORDERED: ONDANSETRON 4 MG/2 ML VIAL IVP STA (19:50)
[2020-12-28] MEDS ORDERED: NALOXONE 0.4 MG/ML 1 ML VIAL IV PRN (19:54)
[2020-12-28] MEDS: SODIUM CHLORIDE 0.9% 1,000 ML IV SCH (19:59)
--- NOTE | 2020-12-28 20:04 | CT ---
EXAMINATION TYPE: CT angio abdomen pelvis DATE OF EXAM: 12/28/2020 COMPARISON: 04/23/2019 HISTORY: Mid abdominal pain. CT DLP: 849.8 mGycm Automated exposure control for dose reduction was used. CONTRAST: Performed without and with IV Contrast, patient injected with 100 mL of Isovue 370. Images were obtained from the diaphragm to the floor the pelvis without and with IV contrast. There a re 3-D post processed images. There is infiltrate and atelectasis at the lung bases. Heart is borderline enlarged. There is no se cardial effusion. There is a moderate amount of free air in the anterior abdomen. There is some intermediate density fl uid in the right paracolic gutter. There is scattered air bubbles that are posterior in the abdomen a round the posterior left lobe of the liver and at the elisha hepatis. There is small amount of free fl uid around the spleen. Liver has normal size without a discrete mass. Gallbladder appears to be present. There are multiple right-sided renal calculi. There is no hydronephrosis. There is 3.5 cm cortical cyst posterior right kidney. There is no adrenal mass. There is no retroperitoneal adenopathy. Bladder distends smoothly. Contrast images show normal opacification of the abdominal aorta. There is arterial flow in the stanley c artery and superior mesenteric artery. There is arterial flow in both renal arteries and the iliac and femoral arteries. I see no hemodynamic stenosis. I see no contrast extravasation. Small bowel is not dilated. There is small 5 mm air bubble posterior to the body of the stomach. This could be fluid in the lesser sac. There is no evidence of pancreatic mass. The lumbar vertebra have fairly normal alignment. There is no compression fracture. I see no bony reji tructive process. The bony pelvis is intact. The hip joints are intact. There is no hip dysplasia. There is moderate spinal stenosis at L3-4 and L4-5 due to facet arthropathy and posterior disc bulgin g. IMPRESSION: Moderate amount of intraperitoneal free air. There is also free intraperitoneal fluid. There are air bubbles at the elisha hepatis upper abdomen and also probably in the lesser sac. Perforation from stom ach or duodenum is possible. No angiographic abnormality. No evidence of active bleeding. Nonobstructing renal calculi. L3-4 L4-5 bony spinal stenosis. Basilar pulmonary infiltrates and atelectasis. This exam was discussed with Dr. Chapman at 8:00 PM.
[2020-12-28] MEDS: MORPHINE SULFATE 4 MG/ML SYRINGE IVP SCH (23:33)
[2020-12-29] MEDS: MORPHINE SULFATE 4 MG/ML SYRINGE IVP SCH ×6 (04:43→23:37)
[2020-12-29] MEDS: SODIUM CHLORIDE 0.9% 1,000 ML IV SCH ×3 (05:52→20:25)
--- NOTE | 2020-12-29 09:21 | P.GSHP ---
<Suzie Heard - Last Filed: 12/29/20 09:09> History of Present Illness H&P Date: 12/29/20 CHIEF COMPLAINT: Abdominal pain HISTORY OF PRESENT ILLNESS: This is a 75-year-old male with a known history of peptic ulcer disease with prior bleeding ulcers. Last stomach ulcer was about 2 years ago. He does take Mobic daily for his arthritis pain. He also has history of prostate cancer status post prostate surgery and prior history of kidney stones. Other surgical history history includes hernia repair. Patient reports they have been doing well and had been having a nice day at the beach yesterday. And then suddenly had sharp abdominal pain. The pain was very severe and was across the abdomen. He reports that the pain had radiated to the left flank. He denies any fever chills or sweats. Denies any nausea or vomiting. He is a nonsmoker. Denies any cardiac history. PAST MEDICAL HISTORY: See list. PAST SURGICAL HISTORY: See list. MEDICATIONS: See list. ALLERGIES: See list. SOCIAL HISTORY: No illicit drug use. REVIEW OF SYSTEMS: CONSTITUTIONAL: Denies fever or chills. HEENT: Denies blurred vision, vision changes, or eye pain. Denies hemoptysis CARDIOVASCULAR: Denies chest pain or pressure. RESPIRATORY: No shortness of breath. GASTROINTESTINAL: See HPI for pertinent findings HEMATOLOGIC: Denies bleeding disorders. GENITOURINARY: Denies any blood in urine or increased urinary frequency. SKIN: Denies pruitis. Denies rash. PHYSICAL EXAM: VITAL SIGNS: Reviewed GENERAL: Well-developed in no acute distress. HEENT: No sclera icterus. Extraocular movements grossly intact. Moist buccal mucosa. Head is atraumatic, normocephalic. No nasal drainage. ABDOMEN: Soft. Distended diffuse tenderness NEUROLOGIC: Alert and oriented. Cranial nerves II through XII grossly intact. LABORATORY DATA: WBC is 6.7 hemoglobin 16.4 platelets 249 INR 0.9 sodium 143 potassium 3.8 creatinine 1.00 lactic 2.2 down to 1.5 Troponin negative LFTs normal Lipase normal Urinalysis no acute infection IMAGING: CTA of abdomen and pelvis showing moderate amount of intraperitoneal free air. There is also free intraperitoneal fluid. There are air bubbles at the elisha hepatis upper abdomen and also probably in the lesser sac. Perforation from stomach or duodenum is possible. No angiographic abnormality. No evidence of active bleeding. Nonobstructing renal calculi. L3 to L4 and L4 to L5 bony spinal stenosis. Basilar pulmonary infiltrates and atelectasis. ASSESSMENT: 1. Severe Abdominal pain with CAT scan showing evidence of moderate amount of intraperitoneal free air. There are concerns for perforation from stomach or duodenum is possible 2. Prior history of peptic ulcer disease with bleeding ulcer 3. Patient on daily Mobic PLAN: -Patient is scheduled for exploratory laparotomy with Dr. Johnson today -Keep patient nothing by mouth -Continue IV fluids -Place Osullivan catheter -Continue pain medications as needed -Consult medical service for medical management -Continue to hold Mobic Physician Cook Supervisor note has been reviewed by physician. Signing provider agrees with the documented findings, assessment, and plan of care. Past Medical History Past Medical History: Cancer, GERD/Reflux, Osteoarthritis (OA), Prostate Disorder, Skin Disorder Additional Past Medical History / Comment(s): hx migraines, ulcers, hx kidney stones, recurrent rash, hypoglycemia, hx prostate cancer History of Any Multi-Drug Resistant Organisms: None Reported Past Surgical History: Hernia Repair, Prostate Surgery, Tonsillectomy Additional Past Surgical History / Comment(s): surgery for muscles on left arm Past Anesthesia/Blood Transfusion Reactions: No Reported Reaction Past Psychological History: No Psychological Hx Reported Smoking Status: Never smoker Past Alcohol Use History: None Reported Additional Past Alcohol Use History / Comment(s): smoked in teens Past Drug Use History: None Reported - Past Family History Mother Family Medical History: No Reported History Medications and Allergies Home Medications Medication Instructions Recorded Confirmed Type Skyiboo-Mgbo-Hple [id number] 1 tab PO Q6HR PRN 08/07/19 12/28/20 History [Excedrin] Multivitamins, Thera [Multivitamin 1 tab PO DAILY 08/07/19 12/28/20 History (formulary)] Esomeprazole Magnesium [NexIUM 20 mg PO DAILY 12/28/20 12/28/20 History 24Hr] Meloxicam [Mobic] 15 mg PO DAILY 12/28/20 12/28/20 History Triamcinolone 0.1% Cream [Kenalog 1 applic TOPICAL BID PRN 12/28/20 12/28/20 History 0.1% Cream] Allergies Allergy/AdvReac Type Severity Reaction Status Date / Time Penicillins Allergy Nausea & Verified 12/29/20 10:14 Vomiting,hives codeine AdvReac Abdominal Verified 12/29/20 10:14 Pain Surgical - Exam Vital Signs Temp Pulse Resp BP Pulse Ox 98.1 F 73 16 120/85 98 12/28/20 17:31 12/28/20 17:31 12/28/20 17:31 12/28/20 17:31 12/28/20 17:31 Results - Labs 12/28/20 18:43 12/28/20 18:43 Abnormal Lab Results - Last 24 Hours (Table) 12/28/20 12/28/20 12/28/20 Range/Units 18:43 18:43 19:50 Chloride 108 H (98-107) mmol/L BUN 30 H (9-20) mg/dL Glucose 142 H (74-99) mg/dL Plasma Lactic Acid Abdulaziz 2.2 H* (0.7-2.0) mmol/L Urine Protein 1+ H (Negative) Urine Blood Small H (Negative) Urine RBC 26 H (0-5) /hpf Hyaline Casts 7 H (0-2) /lpf Urine Mucus Few H (None) /hpf Diabetes panel 12/28/20 Range/Units 18:43 Sodium 143 (137-145) mmol/L Potassium 3.8 (3.5-5.1) mmol/L Chloride 108 H (98-107) mmol/L Carbon Dioxide 26 (22-30) mmol/L BUN 30 H (9-20) mg/dL Creatinine 1.00 (0.66-1.25) mg/dL Glucose 142 H (74-99) mg/dL Calcium 9.5 (8.4-10.2) mg/dL AST 29 (17-59) U/L ALT 18 (4-49) U/L Alkaline Phosphatase 82 (38-126) U/L Total Protein 6.9 (6.3-8.2) g/dL Albumin 4.2 (3.5-5.0) g/dL Calcium panel 12/28/20 Range/Units 18:43 Calcium 9.5 (8.4-10.2) mg/dL Albumin 4.2 (3.5-5.0) g/dL Pituitary panel 12/28/20 Range/Units 18:43 Sodium 143 (137-145) mmol/L Potassium 3.8 (3.5-5.1) mmol/L Chloride 108 H (98-107) mmol/L Carbon Dioxide 26 (22-30) mmol/L BUN 30 H (9-20) mg/dL Creatinine 1.00 (0.66-1.25) mg/dL Glucose 142 H (74-99) mg/dL Calcium 9.5 (8.4-10.2) mg/dL Adrenal panel 12/28/20 Range/Units 18:43 Sodium 143 (137-145) mmol/L Potassium 3.8 (3.5-5.1) mmol/L Chloride 108 H (98-107) mmol/L Carbon Dioxide 26 (22-30) mmol/L BUN 30 H (9-20) mg/dL Creatinine 1.00 (0.66-1.25) mg/dL Glucose 142 H (74-99) mg/dL Calcium 9.5 (8.4-10.2) mg/dL Total Bilirubin 0.5 (0.2-1.3) mg/dL AST 29 (17-59) U/L ALT 18 (4-49) U/L Alkaline Phosphatase 82 (38-126) U/L Total Protein 6.9 (6.3-8.2) g/dL Albumin 4.2 (3.5-5.0) g/dL <Vince Johnson - Last Filed: 12/29/20 10:37> History of Present Illness The patient has a history of NSAID use. He most likely has a peptic ulcer. Surgical - Exam Vital Signs Temp Pulse Resp BP Pulse Ox 98.1 F 73 16 120/85 98 12/28/20 17:31 12/28/20 17:31 12/28/20 17:31 12/28/20 17:31 12/28/20 17:31 Results - Labs 12/28/20 18:43 12/28/20 18:43 Abnormal Lab Results - Last 24 Hours (Table) 12/28/20 12/28/20 12/28/20 Range/Units 18:43 18:43 19:50 Chloride 108 H (98-107) mmol/L BUN 30 H (9-20) mg/dL Glucose 142 H (74-99) mg/dL Plasma Lactic Acid Abdulaziz 2.2 H* (0.7-2.0) mmol/L Urine Protein 1+ H (Negative) Urine Blood Small H (Negative) Urine RBC 26 H (0-5) /hpf Hyaline Casts 7 H (0-2) /lpf Urine Mucus Few H (None) /hpf Diabetes panel 12/28/20 Range/Units 18:43 Sodium 143 (137-145) mmol/L Potassium 3.8 (3.5-5.1) mmol/L Chloride 108 H (98-107) mmol/L Carbon Dioxide 26 (22-30) mmol/L BUN 30 H (9-20) mg/dL Creatinine 1.00 (0.66-1.25) mg/dL Glucose 142 H (74-99) mg/dL Calcium 9.5 (8.4-10.2) mg/dL AST 29 (17-59) U/L ALT 18 (4-49) U/L Alkaline Phosphatase 82 (38-126) U/L Total Protein 6.9 (6.3-8.2) g/dL Albumin 4.2 (3.5-5.0) g/dL Calcium panel 12/28/20 Range/Units 18:43 Calcium 9.5 (8.4-10.2) mg/dL Albumin 4.2 (3.5-5.0) g/dL Pituitary panel 12/28/20 Range/Units 18:43 Sodium 143 (137-145) mmol/L Potassium 3.8 (3.5-5.1) mmol/L Chloride 108 H (98-107) mmol/L Carbon Dioxide 26 (22-30) mmol/L BUN 30 H (9-20) mg/dL Creatinine 1.00 (0.66-1.25) mg/dL Glucose 142 H (74-99) mg/dL Calcium 9.5 (8.4-10.2) mg/dL Adrenal panel 12/28/20 Range/Units 18:43 Sodium 143 (137-145) mmol/L Potassium 3.8 (3.5-5.1) mmol/L Chloride 108 H (98-107) mmol/L Carbon Dioxide 26 (22-30) mmol/L BUN 30 H (9-20) mg/dL Creatinine 1.00 (0.66-1.25) mg/dL Glucose 142 H (74-99) mg/dL Calcium 9.5 (8.4-10.2) mg/dL Total Bilirubin 0.5 (0.2-1.3) mg/dL AST 29 (17-59) U/L ALT 18 (4-49) U/L Alkaline Phosphatase 82 (38-126) U/L Total Protein 6.9 (6.3-8.2) g/dL Albumin 4.2 (3.5-5.0) g/dL
[2020-12-29] MEDS: LACTATED RINGERS 1,000 ML IV SCH ×7 (09:38→16:02)
[2020-12-29] MEDS ORDERED: HEPARIN SODIUM,PORCINE/PF 5,000 UNIT/0.5 ML SYRINGE SQ STA (10:35)
[2020-12-29] MEDS ORDERED: HEPARIN SODIUM,PORCINE/PF 5,000 UNIT/0.5 ML SYRINGE SQ ONE (10:38)
[2020-12-29] MEDS ORDERED: ONDANSETRON 4 MG/2 ML VIAL ONE (10:38)
[2020-12-29] MEDS ORDERED: SUCCINYLCHOLINE CHLORIDE 100 MG/5 ML SYR IV ONE (11:40)
[2020-12-29] MEDS ORDERED: PROPOFOL 10 MG/ML 20 ML VIAL IV ONE (11:40)
[2020-12-29] MEDS ORDERED: ceFAZolin 1,000 MG VIAL ONE (11:40)
[2020-12-29] MEDS ORDERED: LIDOCAINE 1% INJ 10MG/ML (20 ML MDV) ONE (11:40)
[2020-12-29] MEDS ORDERED: KETOROLAC 15 MG/ML 1 ML VIAL ONE (11:40)
[2020-12-29] MEDS ORDERED: MIDAZOLAM 2 MG/2 ML VIAL ONE (11:40)
[2020-12-29] MEDS ORDERED: GLYCOPYRROLATE 0.2 MG/ML 2 ML VIAL ONE (11:40)
[2020-12-29] MEDS ORDERED: fentaNYL (PF) 50 MCG/ML 2 ML AMP ONE (11:40)
[2020-12-29] MEDS ORDERED: SODIUM CHLORIDE 0.9% 100 ML BAG ONE (11:40)
[2020-12-29] MEDS ORDERED: NEOSTIGMINE 1 MG/ML 10 ML VIAL ONE (11:40)
[2020-12-29] MEDS ORDERED: ROCURONIUM 10 MG/ML (5 ML VIAL) IV ONE (11:40)
--- NOTE | 2020-12-29 12:55 | P.OP ---
Date of Procedure: 12/29/20 Preoperative Diagnosis: Perforated viscus Postoperative Diagnosis: Perforated gastric ulcer Incisional hernia Cholecystitis Procedure(s) Performed: Exploratory laparotomy with modified Durga patch repair of gastric ulcer Cholestatic Repair of incarcerated incisional hernia Anesthesia: DESHAUN Surgeon: Vince Johnson Estimated Blood Loss (ml): 25 Pathology: other (Gallbladder) Condition: stable Disposition: PACU Description of Procedure: The patient's placed on the operative table in the supine position. He received general site. His abdomen was prepped and draped usual fashion. The abdomen was entered through a midline incision. Patient had a previous scar. There was an incisional hernia located just below scar. The fascia was opened incarcerated omentum was placed back the pleural cavity. The abdomen was explored. The patient had a seropurulent ascites throughout the abdomen. The stomach was visualized. There is evidence of inflammation of the stomach. There was also a grossly enlarged hydropic gallbladder. The gallbladder measured approximately 15 cm length. The lesser sac was opened. And the gastric ulcer was seen on the posterior wall stomach. The gastrorrhaphy was performed using 3-0 GI silk suture. A modified Durga patch using omentum patch was performed to repair the ulcer. At this point the gallbladder was taken down in a domed down technique. The cystic artery and cystic duct were ligated separately. With 0 silk ties. The gallbladder bed was checked for hemostasis. Several bleeding points were coagulated with left cautery. The abdomen was irrigated with 4 L normal saline. No bleeding was seen. A SOHA drains placed the gallbladder fossa and ran along the stomach. The drain secured with 2-0 nylon and exited through the left upper quadrant. The fascia is closed loop #1 PDS suture. Skin was closed abad. Patient top she will was sent to recovery room in stable condition
[2020-12-29] MEDS ORDERED: LACTATED RINGERS 1,000 ML IV ONE (12:56)
[2020-12-29] MEDS ORDERED: NALOXONE 0.4 MG/ML 1 ML VIAL IV PRN (12:56)
[2020-12-29] MEDS ORDERED: fentaNYL (PF) 50 MCG/ML 2 ML AMP IVP ONE ×2 (13:13→13:25)
[2020-12-29] MEDS ORDERED: LABETALOL SYRINGE 5 MG/ML IVP ONE (13:59)
[2020-12-29] MEDS: HEPARIN SODIUM,PORCINE/PF 5,000 UNIT/0.5 ML SYRINGE SQ SCH ×2 (14:56→23:38)
--- NOTE | 2020-12-29 15:42 | P.CONS ---
History of Present Illness - Reason for Consult Consult date: 12/29/20 abdominal pain Requesting physician: Vicne Johnson - Chief Complaint abdominal pain - History of Present Illness Patient is a 75-year-old male with a history of known peptic ulcer disease, GERD, kidney stones, and prior episodes of hypoglycemia who presented to the hospital with complaints of sudden onset sharp abdominal pain. On arrival to the ER his vital signs are normal limits. In the abdomen and pelvis was done which showed a moderate amount of intraperitoneal free air with free intraperitoneal fluid and air bubbles at the elisha hepatis and upper abdomen, perforation stomach or duodenum. Possible, he was also found have L3 4 and L4 5 spinal stenosis, bibasilar pulmonary infiltrates and atelectasis. Laboratory analysis was essentially within normal limits. He was admitted to surgery and we are consulted for medical management. Patient seen and examined at bedside. He is very lethargic after surgery. He does wake up and tells me that he has abdominal pain, he remembers that he underwent surgery denies any chest pain, mild shortness of breath, no nausea. It appears that patient does have a history of taking aspirin and Mobic. No family present at bedside. All information is obtained from thorough record review -Unable to obtain review of systems secondary to lethargy. General: Ill appearing, mild distress, appears at stated age Derm: warm, dry Head: atraumatic, normocephalic, symmetric Eyes: EOMI, no lid lag, anicteric sclera, pupils equal round reactive to light ENT: Nose and ears atraumatic, no thrush, no pharyngeal erythema Neck: No thyromegaly, no cervical lymphadenopathy, trachea midline, supple Mouth: no lip lesion, mucus membranes dry, NG tube in place Cardiovascular: S1S2 reg, no murmur, positive posterior tibial pulse bilateral, no edema, capillary refill less than 2 seconds Lungs: Decreased breath sounds bilateral, no ronchi, no rales, no wheeze, no accessory muscle use Abdominal: soft, tender to palpation diffusely, 1 SOHA drain noted at midline, dressing in place over midline no guarding, no appreciable organomegaly, normal bowel sounds Ext: no gross muscle atrophy, muscle strength muscle strength 5 out of 5 in all 4 extremities, no contractures Neuro: CN II-XI grossly intact, light touch intact all 4 extremities, finger to nose within normal limits, Psych: Lethargic but once awake and alert and appropriate appropriate affect Perforated gastric ulcer resulting in peritonitis, history of peptic ulcer disease and GERD -Surgery recommendations -IV PPI -Patient should not take aspirin or Mobitz on discharge -Check postop CBC Lactic acidosis secondary to above -IV fluids have been administered and lactic acid has normalized Tachycardia -Likely pain mediated -Follow heart rate Chronic: History of prostate cancer Migraines History of Kidney stones Thank you for allowing us to participate in the care of this pleasant patient. Do not hesitate to contact us with questions. Someone can be reached from the [facility] hospitalist group all hours of the day at [phone] or via [employer]. Review of Systems ROS unobtainable: due to mental status Past Medical History Past Medical History: Cancer, GERD/Reflux, Osteoarthritis (OA), Prostate Disorder, Skin Disorder Additional Past Medical History / Comment(s): hx migraines, ulcers, hx kidney stones, recurrent rash, hypoglycemia, hx prostate cancer History of Any Multi-Drug Resistant Organisms: None Reported Past Surgical History: Hernia Repair, Prostate Surgery, Tonsillectomy Additional Past Surgical History / Comment(s): surgery for muscles on left arm Past Anesthesia/Blood Transfusion Reactions: No Reported Reaction Past Psychological History: No Psychological Hx Reported Smoking Status: Never smoker Past Alcohol Use History: None Reported Additional Past Alcohol Use History / Comment(s): smoked in teens Past Drug Use History: None Reported - Past Family History Mother Family Medical History: No Reported History Medications and Allergies Home Medications Medication Instructions Recorded Confirmed Type [id number] 1 tab PO Q6HR PRN 08/07/19 12/28/20 History [Excedrin] Multivitamins, Thera [Multivitamin 1 tab PO DAILY 08/07/19 12/28/20 History (formulary)] Esomeprazole Magnesium [NexIUM 20 mg PO DAILY 12/28/20 12/28/20 History 24Hr] Meloxicam [Mobic] 15 mg PO DAILY 12/28/20 12/28/20 History Triamcinolone 0.1% Cream [Kenalog 1 applic TOPICAL BID PRN 12/28/20 12/28/20 History 0.1% Cream] Allergies Allergy/AdvReac Type Severity Reaction Status Date / Time Penicillins Allergy Nausea & Verified 12/29/20 10:14 Vomiting,hives codeine AdvReac Abdominal Verified 12/29/20 10:14 Pain Physical Exam Osteopathic Statement: *. No significant issues noted on an osteopathic structural exam other than those noted in the History and Physical/Consult. Vitals: Vital Signs Temp Pulse Pulse Pulse Resp BP BP 12/29/20 14:25 97.9 F 118 H 18 121/82 12/29/20 14:02 114 H 16 128/79 12/29/20 13:48 128 H 16 162/84 12/29/20 13:30 130 H 16 161/80 12/29/20 13:15 124 H 14 146/71 12/29/20 13:04 97.4 F L 121 H 12 179/90 12/29/20 10:29 100.5 F H 124 H 20 104/71 12/29/20 08:00 98.6 F 130 H 16 107/63 12/29/20 02:45 98.6 F 125 H 18 106/73 12/28/20 21:22 97.7 F 103 H 18 141/82 12/28/20 19:51 97.4 F L 101 H 18 141/87 12/28/20 19:38 105 H 18 12/28/20 19:19 94 22 124/79 12/28/20 19:10 92 24 114/82 12/28/20 19:00 81 24 86/59 12/28/20 17:31 98.1 F 73 16 120/85 Pulse Ox 12/29/20 14:25 92 L 12/29/20 14:02 100 12/29/20 13:48 100 12/29/20 13:30 100 12/29/20 13:15 100 12/29/20 13:04 97 12/29/20 10:29 93 L 12/29/20 08:00 93 L 12/29/20 02:45 95 12/28/20 21:22 96 12/28/20 19:51 95 12/28/20 19:38 95 12/28/20 19:19 90 L 12/28/20 19:10 92 L 12/28/20 19:00 90 L 12/28/20 17:31 98 Intake and Output 12/29/20 12/29/20 12/29/20 06:59 14:59 22:59 Intake Total 1040 1575 Output Total 150 325 Balance 890 1250 Intake: IV 1575 Intake, IV Titration 1040 Amount Sodium Chloride 0.9% 1, 1040 000 ml @ 130 mls/hr IV . [id number] [facility] Rx#:[id number] Output: Urine 150 300 Estimated Blood Loss 25 Other: # Voids 2 Results CBC & Chem 7: 12/28/20 18:43 12/28/20 18:43 Labs: Abnormal Lab Results - Last 24 Hours (Table) 12/28/20 12/28/20 12/28/20 Range/Units 18:43 18:43 19:50 Chloride 108 H (98-107) mmol/L BUN 30 H (9-20) mg/dL Glucose 142 H (74-99) mg/dL Plasma Lactic Acid Abdulaziz 2.2 H* (0.7-2.0) mmol/L Urine Protein 1+ H (Negative) Urine Blood Small H (Negative) Urine RBC 26 H (0-5) /hpf Hyaline Casts 7 H (0-2) /lpf Urine Mucus Few H (None) /hpf
[2020-12-29 16:20] LABS: HCT 44.9 % (39.0-53.0); HGB 14.5 gm/dL (13.0-17.5); MCH 31.8 pg (25.0-35.0); MCHC 32.4 g/dL (31.0-37.0); MCV 98.3 fL (80.0-100.0); Platelet Count 172 k/uL (150-450); RBC 4.56 m/uL (4.30-5.90); RDW 12.7 % (11.5-15.5); WBC 6.9 k/uL (3.8-10.6)
[2020-12-29] MEDS: HYDROmorphone 1 MG/ML 1 ML SYRINGE IVP PRN ×2 (17:47→21:42)
[2020-12-29] MEDS: PANTOPRAZOLE 40 MG/10 ML VIAL IVP SCH (21:42)
[2020-12-30] MEDS: MORPHINE SULFATE 4 MG/ML SYRINGE IVP SCH ×5 (04:24→19:44)
[2020-12-30] MEDS: SODIUM CHLORIDE 0.9% 1,000 ML IV SCH ×2 (05:03→12:26)
[2020-12-30] MEDS: HEPARIN SODIUM,PORCINE/PF 5,000 UNIT/0.5 ML SYRINGE SQ SCH ×2 (07:07→16:07)
[2020-12-30] MEDS: PANTOPRAZOLE 40 MG/10 ML VIAL IVP SCH ×2 (07:08→19:44)
--- NOTE | 2020-12-30 09:20 | P.PN ---
Subjective Progress Note Date: 12/30/20 Principal diagnosis: abdominal pain Patient is a 75-year-old male with a history of known peptic ulcer disease, GERD, kidney stones, and prior episodes of hypoglycemia who presented to the hospital with complaints of sudden onset sharp abdominal pain. On arrival to the ER his vital signs are normal limits. In the abdomen and pelvis was done which showed a moderate amount of intraperitoneal free air with free intraperitoneal fluid and air bubbles at the elisha hepatis and upper abdomen, perforation stomach or duodenum. Possible, he was also found have L3 4 and L4 5 spinal stenosis, bibasilar pulmonary infiltrates and atelectasis. Laboratory analysis was essentially within normal limits. Patient seen and examined at bedside. He reports pain that is worse with movement and deep breathing. He deneis any nausea, he does complain of dry mouth, he is unsure if he has passed gas. General: ill appearing, mild distress due to pain, appears at stated age Derm: warm, dry Head: atraumatic, normocephalic, symmetric Eyes: EOMI, no lid lag, anicteric sclera Mouth: no lip lesion, mucus membranes moist Cardiovascular: S1S2 reg, no murmur, positive posterior tibial pulse bilateral, Lungs: Decreased bs bilateral, no rhonchi, no rales , no accessory muscle use Abdominal: soft, +tender to palpation RUQ and LUQ, no guarding, no appreciable organomegaly, SOHA drain in place with serosanguaneous drainage Ext: no gross muscle atrophy, no edema, no contractures Neuro: CN II-XI grossly intact, no focal neuro deficits Psych: Alert, oriented, appropriate affect Perforated gastric ulcer resulting in peritonitis, history of peptic ulcer disease and GERD Chronic gallbladder dysfunction -Surgery recommendations -IV PPI -Patient should not take aspirin or Mobic on discharge -await AM labs - NGT in place - IV fluids - pain control - rocephin and flagyl X 48 hours with peritonitits Tachycardia -Likely pain mediated, ecourage pain control -Follow heart rate Lactic acidosis secondary to above -IV fluids have been administered and lactic acid has normalized Chronic: History of prostate cancer Migraines History of Kidney stones Thank you for allowing us to participate in the care of this pleasant patient. Do not hesitate to contact us with questions. Someone can be reached from the [facility] hospitalist group all hours of the day at [phone] or via perfect serve. Objective - Vital Signs Vital signs: Vital Signs Temp 98.3 F 12/30/20 07:25 Pulse 114 H 12/30/20 08:00 Resp 16 12/30/20 08:00 BP 126/78 12/30/20 07:25 Pulse Ox 94 L 12/30/20 07:25 Intake & Output 12/29/20 12/30/20 12/30/20 18:59 06:59 18:59 Intake Total 1575 Output Total 325 1600 0 Balance 1250 -1600 0 Intake: IV 1575 Output: Urine 300 1600 Stool 0 0 Estimated Blood Loss 25 Other: Voiding Method Indwelling Catheter Indwelling Catheter - Labs CBC & Chem 7: 12/29/20 15:55 12/28/20 18:43 Labs: Microbiology - Last 24 Hours (Table) 12/28/20 19:50 Blood Culture - Preliminary Blood No Growth after 24 hours 12/28/20 19:50 Blood Culture - Preliminary Blood No Growth after 24 hours
[2020-12-30] MEDS: HYDROmorphone 1 MG/ML 1 ML SYRINGE IVP PRN ×2 (10:23→22:37)
[2020-12-30] MEDS: metroNIDAZOLE-NS PMX 500 MG in SALINE 1 100ML.BAG IVPB SCH ×2 (10:23→16:07)
--- NOTE | 2020-12-30 12:42 | P.PN ---
Subjective Progress Note Date: 12/30/20 CHIEF COMPLAINT: Abdominal pain HISTORY OF PRESENT ILLNESS: Patient is status post exploratory laparotomy with modified Durga patch repair of gastric ulcer, cholecystectomy and repair of incarcerated incisional hernia. Patient is sitting up in bedside chair. He does report abdominal pain. Pain is controlled with pain medication. Denies any nausea or vomiting. Currently nothing by mouth has NG tube in place with no output. Afebrile. Patient has been tachycardic possibly due to pain PHYSICAL EXAM: VITAL SIGNS: Reviewed. GENERAL: Well-developed in no acute distress. HEENT: No sclera icterus. Extraocular movements grossly intact. Moist buccal mucosa. Head is atraumatic, normocephalic. ABDOMEN: Soft. Nondistended. Nontender. NEUROLOGIC: Alert and oriented. Cranial nerves II through XII grossly intact. ASSESSMENT: 1. Perforated gastric ulcer, incisional hernia and cholecystitis status post exploratory laparotomy with modified Durga patch repair of gastric ulcer, cholecystectomy and repair of incarcerated incisional hernia. Postop day #1 2. Daily NSAID use likely a contributing factor to patient's perforated gastric ulcer PLAN: -Patient educated not to take Mobic after discharge -Keep patient nothing by mouth -Continue NG tube for decompression -Continue pain medication -Continue antibiotics -Continue incentive spirometer -Encouraged patient to increase activity level -GI prophylaxis Protonix and DVT prophylaxis subcu heparin Physician [employer] Operator note has been reviewed by physician. Signing provider agrees with the documented findings, assessment, and plan of care. Objective - Vital Signs Vital signs: Vital Signs Temp 98.3 F 12/30/20 07:25 Pulse 114 H 12/30/20 08:00 Resp 16 12/30/20 08:00 BP 126/78 12/30/20 07:25 Pulse Ox 94 L 12/30/20 07:25 Intake & Output 12/29/20 12/30/20 12/30/20 18:59 06:59 18:59 Intake Total 1575 Output Total 325 1600 0 Balance 1250 -1600 0 Intake: IV 1575 Output: Urine 300 1600 Stool 0 0 Estimated Blood Loss 25 Other: Voiding Method Indwelling Catheter Indwelling Catheter - Labs CBC & Chem 7: 12/29/20 15:55 12/28/20 18:43 Labs: Microbiology - Last 24 Hours (Table) 12/28/20 19:50 Blood Culture - Preliminary Blood No Growth after 24 hours 12/28/20 19:50 Blood Culture - Preliminary Blood No Growth after 24 hours
[2020-12-30 12:59] LABS: HCT 45.3 % (39.6-50.0); HGB 14.5 g/dL (13.0-17.0); MCH 31.3 pg (27.0-32.0); MCV 97.8 fL (80.0-97.0); Mean Platelet Volume 9.4 fL (9.5-12.2); Platelet Count 169 X 10*3/uL (140-440); RBC 4.63 X 10*6/uL (4.40-5.60); RDW 12.5 % (11.5-14.5); WBC 8.95 X 10*3/uL (4.50-10.00)
[2020-12-30 16:34] LABS: African American GFR (CKD) 107.7 (60.0-200.0); Albumin 3.2 g/dL (3.80-4.90); Albumin/Globulin Ratio 1.6 (1.60-3.17); Anion Gap 8.6 mmol/L (4.00-12.00); Calcium 8.3 mg/dL (8.7-10.3); Carbon Dioxide 26.4 mmol/L (21.6-31.8); Magnesium 1.6 mg/dL (1.5-2.4); Phosphorus 1.9 mg/dL (2.4-5.1); Potassium 4.1 mmol/L (3.5-5.5); Total Bilirubin 1.3 mg/dL (0.2-1.2); Total Protein 5.2 g/dL (6.2-8.2)
[2020-12-31] MEDS: SODIUM CHLORIDE 0.9% 1,000 ML IV SCH ×4 (08:02→20:07)
[2020-12-31] MEDS: MORPHINE SULFATE 4 MG/ML SYRINGE IVP SCH ×2 (08:03→08:19)
[2020-12-31] MEDS: HEPARIN SODIUM,PORCINE/PF 5,000 UNIT/0.5 ML SYRINGE SQ SCH ×3 (08:04→16:12)
[2020-12-31] MEDS: metroNIDAZOLE-NS PMX 500 MG in SALINE 1 100ML.BAG IVPB SCH ×3 (08:04→18:50)
[2020-12-31] MEDS: PANTOPRAZOLE 40 MG/10 ML VIAL IVP SCH ×2 (08:18→20:07)
[2020-12-31 08:22] LABS: Basophils % (A) 0 %; Eosinophils # (A) 0.1 k/uL (0-0.7); Eosinophils % (A) 1 %; HCT 43.9 % (39.0-53.0); HGB 14.1 gm/dL (13.0-17.5); Lymphocytes # (A) 0.4 k/uL (1.0-4.8); Lymphocytes % (A) 5 %; MCH 31.9 pg (25.0-35.0); MCHC 32.2 g/dL (31.0-37.0); Mean Platelet Volume 7.4; Monocytes # (A) 0.4 k/uL (0-1.0); Monocytes % (A) 4 %; Neutrophils # (A) 7.5 k/uL (1.3-7.7); Neutrophils % (A) 90 %; Platelet Count 185 k/uL (150-450); RBC 4.43 m/uL (4.30-5.90); RDW 12.5 % (11.5-15.5); WBC 8.3 k/uL (3.8-10.6)
[2020-12-31] MEDS ORDERED: SODIUM CHLORIDE 0.9% 1,000 ML IV ONE (08:48)
[2020-12-31] MEDS ORDERED: MORPHINE SULFATE 4 MG/ML SYRINGE IVP PRN (08:49)
[2020-12-31 08:55] LABS: ALT 35 U/L (4-49); AST 29 U/L (17-59); African American GFR (CKD) >90 (>60 ml/min/1.73 sqM); Albumin 2.6 g/dL (3.5-5.0); Albumin/Globulin Ratio 1.1; Alkaline Phosphatase 84 U/L (38-126); Anion Gap 4 mmol/L; Blood Urea Nitrogen 26 mg/dL (9-20); Calcium 8.6 mg/dL (8.4-10.2); Carbon Dioxide 27 mmol/L (22-30); Chloride 108 mmol/L (98-107); Globulin 2.4 g/dL; Glucose 111 mg/dL (74-99); Non-African American GFR(CKD) >90 (>60 ml/min/1.73 sqM); Sodium 139 mmol/L (137-145); Total Bilirubin 1.5 mg/dL (0.2-1.3)
--- NOTE | 2020-12-31 09:18 | P.PN ---
Subjective Progress Note Date: 12/31/20 Principal diagnosis: abdominal pain Patient is a 75-year-old male with a history of known peptic ulcer disease, GERD, kidney stones, and prior episodes of hypoglycemia who presented to the hospital with complaints of sudden onset sharp abdominal pain. On arrival to the ER his vital signs are normal limits. In the abdomen and pelvis was done which showed a moderate amount of intraperitoneal free air with free intraperitoneal fluid and air bubbles at the elisha hepatis and upper abdomen, perforation stomach or duodenum. Possible, he was also found have L3 4 and L4 5 spinal stenosis, bibasilar pulmonary infiltrates and atelectasis. Laboratory analysis was essentially within normal limits. Patient seen and examined at bedside. He continues to have abdominal pain. No chest pain, no shortness of breath, no sore throat. He is tired and feels that the pain medications are not working. General: ill appearing, mild distress due to pain, appears at stated age Derm: warm, dry Head: atraumatic, normocephalic, symmetric Eyes: EOMI, no lid lag, anicteric sclera Mouth: no lip lesion, mucus membranes moist Cardiovascular: S1S2 tachy, no murmur, positive posterior tibial pulse bilateral, Lungs: Decreased bs bilateral, no rhonchi, no rales , no accessory muscle use Abdominal: soft, +tender to palpation RUQ and LUQ, no guarding, no appreciable organomegaly, SOHA drain in place with sanguaneous drainage Ext: no gross muscle atrophy, no edema, no contractures Neuro: CN II-XI grossly intact, no focal neuro deficits Psych: Alert, oriented, appropriate affect Perforated gastric ulcer resulting in peritonitis, history of peptic ulcer disease and GERD s/p surgical repair Chronic gallbladder dysfunction s/p cholecystectomy Intractable Pain -Surgery recommendations -IV PPI -Patient should not take aspirin or Mobic on discharge - NGT in place - IV fluids - pain control - rocephin and flagyl with peritonitits Tachycardia - 1L bolus, denies alcohol use - IV acetominophen X 1 -Likely pain mediated, ecourage pain control -Follow heart rate Lactic acidosis secondary to above, resolved Chronic: History of prostate cancer Migraines History of Kidney stones Thank you for allowing us to participate in the care of this pleasant patient. Do not hesitate to contact us with questions. Someone can be reached from the [facility] hospitalist group all hours of the day at [phone] or via perfect serve. Objective - Vital Signs Vital signs: Vital Signs Temp 98.9 F 12/31/20 07:54 Pulse 70 12/31/20 07:54 Resp 16 12/31/20 07:54 BP 151/94 12/31/20 07:54 Pulse Ox 98 12/31/20 07:54 Intake & Output 12/30/20 12/31/20 12/31/20 18:59 06:59 18:59 Output Total 400 600 10 Balance -400 -600 -10 Output: Drainage 10 Anterior Abdomen 10 Urine 400 600 Stool 0 Other: Voiding Method Indwelling Catheter Indwelling Catheter # Bowel Movements 0 - Labs CBC & Chem 7: 12/31/20 08:00 12/31/20 08:00 Labs: Abnormal Lab Results - Last 24 Hours (Table) 12/30/20 12/30/20 12/31/20 Range/Units 06:56 06:56 08:00 MCV 97.8 H (80.0-97.0) fL MPV 9.4 L (9.5-12.2) fL Lymphocytes # 0.4 L (1.0-4.8) k/uL Chloride (98-107) mmol/L BUN (9-20) mg/dL Creatinine (0.66-1.25) mg/dL BUN/Creatinine Ratio 30.00 H (12.00-20.00) Ratio Glucose 136 H (70-110) mg/dL Calcium 8.3 L (8.7-10.3) mg/dL Phosphorus 1.9 L (2.4-5.1) mg/dL Total Bilirubin 1.3 H (0.2-1.2) mg/dL AST 41 H (14-35) U/L ALT 52 H (10-49) U/L Total Protein 5.2 L (6.2-8.2) g/dL Albumin 3.20 L (3.80-4.90) g/dL 12/31/20 Range/Units 08:00 MCV (80.0-97.0) fL MPV (9.5-12.2) fL Lymphocytes # (1.0-4.8) k/uL Chloride 108 H (98-107) mmol/L BUN 26 H (9-20) mg/dL Creatinine 0.59 L (0.66-1.25) mg/dL BUN/Creatinine Ratio (12.00-20.00) Ratio Glucose 111 H (70-110) mg/dL Calcium (8.7-10.3) mg/dL Phosphorus (2.4-5.1) mg/dL Total Bilirubin 1.5 H (0.2-1.2) mg/dL AST (14-35) U/L ALT (10-49) U/L Total Protein 5.0 L (6.2-8.2) g/dL Albumin 2.6 L (3.80-4.90) g/dL Microbiology - Last 24 Hours (Table) 12/28/20 19:50 Blood Culture - Preliminary Blood No Growth after 48 hours 12/28/20 19:50 Blood Culture - Preliminary Blood No Growth after 48 hours
[2020-12-31] MEDS: ACETAMINOPHEN IV (For NPO) 1,000 MG in EMPTY BAG 1 BAG IVPB STA ×2 (10:10→10:11)
[2020-12-31] MEDS ORDERED: KETOROLAC 15 MG/ML 1 ML VIAL IVP SCH (13:15)
--- NOTE | 2020-12-31 14:04 | XR ---
EXAMINATION TYPE: XR abdomen 1V DATE OF EXAM: 12/31/2020 COMPARISON: 04/23/2019 INDICATION: NG tube placement TECHNIQUE: Single view abdomen semi-upright view FINDINGS: There is a normal bowel gas pattern. Surgical skin abad are present in the midline. Psoas margins are normal. No organomegaly is present. No free air is under the diaphragm. The nasogastric tube extends to the stomach region and coils back with the tip in the distal esophage al region. There appears to be drainage catheters within the abdomen. IMPRESSION: 1. Nonspecific abdomen. 2. Nasogastric tube curls likely within the stomach with the tip of the nasogastric redirected superi franci into the distal esophagus. Repositioning should be performed.
[2020-12-31] MEDS ORDERED: KETOROLAC 15 MG/ML 1 ML VIAL IVP STA (14:08)
--- NOTE | 2020-12-31 14:21 | P.PN ---
<Suzie Heard - Last Filed: 12/31/20 14:15> Subjective Progress Note Date: 12/31/20 CHIEF COMPLAINT: Abdominal pain HISTORY OF PRESENT ILLNESS: Patient is status post exploratory laparotomy with modified Durga patch repair of gastric ulcer, cholecystectomy and repair of incarcerated incisional hernia. Patient complaining of abdominal pain. He reports that his pain is about the same as yesterday. Abdomen is slightly more distended. His urine is dark and he had been tachycardic. Medicine service has ordered a 1 liter fluid bolus. They've also ordered IV Tylenol. NG tube with no output. SOHA drain sanguinous 10 mL output. Afebrile. Heart rate as high as 122 PHYSICAL EXAM: VITAL SIGNS: Reviewed. GENERAL: Well-developed in no acute distress. HEENT: No sclera icterus. Extraocular movements grossly intact. Moist buccal mucosa. Head is atraumatic, normocephalic. ABDOMEN: Soft. Distended. Incisional dressing clean dry and intact NEUROLOGIC: Alert and oriented. Cranial nerves II through XII grossly intact. ASSESSMENT: 1. Perforated gastric ulcer, incisional hernia and cholecystitis status post exploratory laparotomy with modified Durga patch repair of gastric ulcer, cholecystectomy and repair of incarcerated incisional hernia. Postop day #2 2. Daily NSAID use likely a contributing factor to patient's perforated gastric ulcer PLAN: -Abdominal x-ray completed to confirm NG tube positioning -Add IV Tylenol scheduled -We'll give 1 dose of IV Toradol to help with pain -Patient educated not to take Mobic after discharge -Keep patient nothing by mouth -Continue NG tube for decompression -Continue pain medication -Continue antibiotics -Continue incentive spirometer -Encouraged patient to increase activity level -GI prophylaxis Protonix and DVT prophylaxis subcu heparin Physician Cissp note has been reviewed by physician. Signing provider agrees with the documented findings, assessment, and plan of care. Objective - Vital Signs Vital signs: Vital Signs Temp 98.9 F 12/31/20 07:54 Pulse 70 12/31/20 07:54 Resp 16 12/31/20 07:54 BP 151/94 12/31/20 07:54 Pulse Ox 98 12/31/20 07:54 Intake & Output 12/30/20 12/31/20 12/31/20 18:59 06:59 18:59 Output Total 400 600 10 Balance -400 -600 -10 Output: Drainage 10 Anterior Abdomen 10 Urine 400 600 Stool 0 Other: Voiding Method Indwelling Catheter Indwelling Catheter Indwelling Catheter # Bowel Movements 0 - Labs CBC & Chem 7: 12/31/20 08:00 12/31/20 08:00 Labs: Abnormal Lab Results - Last 24 Hours (Table) 12/30/20 12/31/20 12/31/20 Range/Units 06:56 08:00 08:00 Lymphocytes # 0.4 L (1.0-4.8) k/uL Chloride 108 H (98-107) mmol/L BUN 26 H (9-20) mg/dL Creatinine 0.59 L (0.66-1.25) mg/dL BUN/Creatinine Ratio 30.00 H (12.00-20.00) Ratio Glucose 136 H 111 H (70-110) mg/dL Calcium 8.3 L (8.7-10.3) mg/dL Phosphorus 1.9 L (2.4-5.1) mg/dL Total Bilirubin 1.3 H 1.5 H (0.2-1.2) mg/dL AST 41 H (14-35) U/L ALT 52 H (10-49) U/L Total Protein 5.2 L 5.0 L (6.2-8.2) g/dL Albumin 3.20 L 2.6 L (3.80-4.90) g/dL Microbiology - Last 24 Hours (Table) 12/28/20 19:50 Blood Culture - Preliminary Blood No Growth after 48 hours 12/28/20 19:50 Blood Culture - Preliminary Blood No Growth after 48 hours <Orlando De Leon - Last Filed: 12/31/20 18:58> Subjective As above. Patient says his pain is slightly more today than yesterday although better than preoperatively. Intermittent tachycardia. Abdominal x-rays showed nasogastric tube coiled in the proximal stomach or distal esophagus. Will reposition tube as it sounds like it slid out and was reinserted last night. Keep nothing by mouth. Continue antibiotics. Objective - Vital Signs Vital signs: Vital Signs Temp 97.9 F 12/31/20 14:00 Pulse 133 H 12/31/20 14:00 Resp 18 12/31/20 14:00 BP 153/99 12/31/20 14:00 Pulse Ox 95 12/31/20 14:00 Intake & Output 12/30/20 12/31/20 12/31/20 18:59 06:59 18:59 Intake Total 0 Output Total 467 138 7942 Balance -400 -600 -1090 Intake: Oral 0 Output: Drainage 20 Anterior Abdomen 20 Urine 714 150 0686 Uretheral (Osullivan) 820 Stool 0 Other: Voiding Method Indwelling Catheter Indwelling Catheter Indwelling Catheter # Bowel Movements 0 - Labs CBC & Chem 7: 12/31/20 08:00 12/31/20 08:00 Labs: Abnormal Lab Results - Last 24 Hours (Table) 12/31/20 12/31/20 Range/Units 08:00 08:00 Lymphocytes # 0.4 L (1.0-4.8) k/uL Chloride 108 H (98-107) mmol/L BUN 26 H (9-20) mg/dL Creatinine 0.59 L (0.66-1.25) mg/dL Glucose 111 H (74-99) mg/dL Total Bilirubin 1.5 H (0.2-1.3) mg/dL Total Protein 5.0 L (6.3-8.2) g/dL Albumin 2.6 L (3.5-5.0) g/dL Microbiology - Last 24 Hours (Table) 12/28/20 19:50 Blood Culture - Preliminary Blood No Growth after 48 hours 12/28/20 19:50 Blood Culture - Preliminary Blood No Growth after 48 hours
[2020-12-31] MEDS: HYDROmorphone 1 MG/ML 1 ML SYRINGE IVP PRN ×2 (16:11→20:13)
[2020-12-31] MEDS: ACETAMINOPHEN IV (For NPO) 1,000 MG in EMPTY BAG 1 BAG IVPB SCH (18:12)
--- NOTE | 2020-12-31 20:05 | XR ---
EXAMINATION TYPE: XR abdomen 1V DATE OF EXAM: 12/31/2020 COMPARISON: Today HISTORY: Check tube placement TECHNIQUE: Single view FINDINGS: There is atelectasis at both lung bases. There are skin abad in the midline abdomen. The re is nasogastric tube folded on itself in the esophagus. I see no evidence of free air. There is marcelle e tubing over the mid abdomen. There are chest leads. I see no sign of a bowel obstruction. IMPRESSION: Nasogastric tube is still folded on itself in the lower esophagus. No free air. Atelectas is and infiltrate at the lung bases without change.
--- NOTE | 2020-12-31 22:20 | XR ---
EXAMINATION TYPE: XR abdomen 1V DATE OF EXAM: 12/31/2020 COMPARISON: Today HISTORY: Check tube placement TECHNIQUE: Single view FINDINGS: NG tube appears to be in the stomach. Tip is at the gastric fundus. There is no evidence of free air. There is some atelectasis at the lung bases. IMPRESSION: NG tube is in the stomach.
[2020-12-31] MEDS ORDERED: metroNIDAZOLE-NS PMX 500 MG/100 ML BAG ONE (23:59)
[2020-12-31] MEDS ORDERED: MORPHINE SULFATE 4 MG/ML SYRINGE ONE (23:59)
[2020-12-31] MEDS ORDERED: HEPARIN SODIUM,PORCINE/PF 5,000 UNIT/0.5 ML SYRINGE SQ ONE (23:59)
[2021-01-01] MEDS: HEPARIN SODIUM,PORCINE/PF 5,000 UNIT/0.5 ML SYRINGE SQ SCH ×4 (00:18→23:58)
[2021-01-01] MEDS: ACETAMINOPHEN IV (For NPO) 1,000 MG in EMPTY BAG 1 BAG IVPB SCH ×3 (00:19→13:29)
[2021-01-01] MEDS: HYDROmorphone 1 MG/ML 1 ML SYRINGE IVP PRN ×6 (00:19→20:21)
[2021-01-01] MEDS: metroNIDAZOLE-NS PMX 500 MG in SALINE 1 100ML.BAG IVPB SCH ×3 (01:06→15:25)
[2021-01-01] MEDS: SODIUM CHLORIDE 0.9% 1,000 ML IV SCH ×4 (01:07→20:22)
[2021-01-01] MEDS: PANTOPRAZOLE 40 MG/10 ML VIAL IVP SCH ×2 (08:07→20:21)
[2021-01-01 09:31] LABS: ALT 26 U/L (4-49); AST 21 U/L (17-59); African American GFR (CKD) >90 (>60 ml/min/1.73 sqM); Albumin 2.5 g/dL (3.5-5.0); Albumin/Globulin Ratio 1.1; Alkaline Phosphatase 108 U/L (38-126); Anion Gap 9 mmol/L; Blood Urea Nitrogen 28 mg/dL (9-20); Calcium 8.6 mg/dL (8.4-10.2); Carbon Dioxide 24 mmol/L (22-30); Chloride 109 mmol/L (98-107); Globulin 2.3 g/dL; Glucose 98 mg/dL (74-99); Non-African American GFR(CKD) >90 (>60 ml/min/1.73 sqM); Potassium 3.5 mmol/L (3.5-5.1); Sodium 142 mmol/L (137-145); Total Bilirubin 1.5 mg/dL (0.2-1.3); Total Protein 4.8 g/dL (6.3-8.2)
[2021-01-01] MEDS ORDERED: METOPROLOL TARTRATE 12.5 MG TAB PO SCH (09:45)
--- NOTE | 2021-01-01 11:52 | P.PN ---
<Suzie Heard - Last Filed: 01/01/21 14:02> Subjective Progress Note Date: 01/01/21 CHIEF COMPLAINT: Abdominal pain HISTORY OF PRESENT ILLNESS: Patient is status post exploratory laparotomy with modified Durga patch repair of gastric ulcer, cholecystectomy and repair of incarcerated incisional hernia. Patient complaining of abdominal pain but states pain is slightly better than yesterday. His abdomen remains distended. He did pass a small amount of gas. Afebrile. Patient has been having sinus tachycardia with heart rate into the 130s. Medicine service is following. Patient has NG tube in place with no output. CBC pending potassium 3.5 creatinine 0.62 total bili 1.5 LFTs normal Abdominal x-ray shows NG tube in stomach PHYSICAL EXAM: VITAL SIGNS: Reviewed. GENERAL: Well-developed in no acute distress. HEENT: No sclera icterus. Extraocular movements grossly intact. Moist buccal mucosa. Head is atraumatic, normocephalic. ABDOMEN: Soft. Distended. Incisional dressing clean dry and intact SOHA drain bile color with 20 mL output NEUROLOGIC: Alert and oriented. Cranial nerves II through XII grossly intact. ASSESSMENT: 1. Perforated gastric ulcer, incisional hernia and cholecystitis status post exploratory laparotomy with modified Durga patch repair of gastric ulcer, cholecystectomy and repair of incarcerated incisional hernia. Postop day #2 2. 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 Signing provider agrees with the documented findings, assessment, and plan of care. Objective - Vital Signs Vital signs: Vital Signs Temp 98.2 F 01/01/21 07:57 Pulse 69 01/01/21 08:00 Resp 18 01/01/21 08:00 BP 147/99 01/01/21 07:57 Pulse Ox 93 L 01/01/21 07:57 Intake & Output 12/31/20 01/01/21 01/01/21 18:59 06:59 18:59 Intake Total 0 Output Total 1090 800 0 Balance -1090 -800 0 Intake: Oral 0 Output: Drainage 20 Anterior Abdomen 20 Urine 1070 800 Uretheral (Osullivan) 820 Stool 0 Other: Voiding Method Indwelling Catheter Indwelling Catheter Indwelling Catheter - Labs CBC & Chem 7: 01/01/21 08:33 01/01/21 08:33 Labs: Abnormal Lab Results - Last 24 Hours (Table) 01/01/21 Range/Units 08:33 Chloride 109 H (98-107) mmol/L BUN 28 H (9-20) mg/dL Creatinine 0.62 L (0.66-1.25) mg/dL Total Bilirubin 1.5 H (0.2-1.3) mg/dL Total Protein 4.8 L (6.3-8.2) g/dL Albumin 2.5 L (3.5-5.0) g/dL Microbiology - Last 24 Hours (Table) 12/28/20 19:50 Blood Culture - Preliminary Blood No Growth after 72 hours 12/28/20 19:50 Blood Culture - Preliminary Blood No Growth after 72 hours <Orlando De Leon - Last Filed: 01/01/21 14:22> Subjective As above. Patient states his pain is improved from yesterday. White blood cell count remains elevated. Unfortunately the patient's tachycardia persists. His SOHA drain was inspected. His drain itself appears serosanguineous however in the bulb there is the patient of possible bile tinge. On exam the patient remains mildly distended. He has incisional tenderness. There is no rebound or guarding at this time. Continue IV antibiotics. Agree with telemetry. Keep nasogastric tube to suction. We'll consult radiology for PICC line placement and plan to initiate TPN. Case discussed with hospitalist service. Objective - Vital Signs Vital signs: Vital Signs Temp 98.2 F 01/01/21 07:57 Pulse 139 H 01/01/21 12:00 Resp 18 01/01/21 08:00 BP 147/99 01/01/21 07:57 Pulse Ox 93 L 01/01/21 07:57 Intake & Output 12/31/20 01/01/21 01/01/21 18:59 06:59 18:59 Intake Total 0 Output Total 1090 800 0 Balance -1090 -800 0 Weight 65.771 kg Intake: Oral 0 Output: Drainage 20 Anterior Abdomen 20 Urine 1070 800 Uretheral ([place]) 820 Stool 0 Other: Voiding Method Indwelling Catheter Indwelling Catheter Indwelling Catheter - Labs CBC & Chem 7: 01/01/21 08:33 01/01/21 08:33 Labs: Abnormal Lab Results - Last 24 Hours (Table) 01/01/21 01/01/21 Range/Units 08:33 08:33 RBC 4.26 L (4.30-5.90) m/uL Lymphocytes # 0.5 L (1.0-4.8) k/uL Chloride 109 H (98-107) mmol/L BUN 28 H (9-20) mg/dL Creatinine 0.62 L (0.66-1.25) mg/dL Total Bilirubin 1.5 H (0.2-1.3) mg/dL Total Protein 4.8 L (6.3-8.2) g/dL Albumin 2.5 L (3.5-5.0) g/dL Microbiology - Last 24 Hours (Table) 12/28/20 19:50 Blood Culture - Preliminary Blood No Growth after 72 hours 12/28/20 19:50 Blood Culture - Preliminary Blood No Growth after 72 hours
[2021-01-01 12:16] LABS: Basophils % (A) 0 %; Eosinophils # (A) 0.1 k/uL (0-0.7); Eosinophils % (A) 1 %; HCT 41.9 % (39.0-53.0); Lymphocytes # (A) 0.5 k/uL (1.0-4.8); Lymphocytes % (A) 7 %; MCH 32.9 pg (25.0-35.0); MCHC 33.4 g/dL (31.0-37.0); MCV 98.4 fL (80.0-100.0); Mean Platelet Volume 7.5; Monocytes # (A) 0.3 k/uL (0-1.0); Monocytes % (A) 4 %; Neutrophils # (A) 6.3 k/uL (1.3-7.7); Neutrophils % (A) 87 %; Platelet Count 224 k/uL (150-450); RBC 4.26 m/uL (4.30-5.90); RDW 13.1 % (11.5-15.5); WBC 7.3 k/uL (3.8-10.6)
[2021-01-01] MEDS: METOPROLOL TARTRATE 5 MG/5 ML VIAL IVP PRN (15:24)
[2021-01-01] MEDS ORDERED: POTASSIUM CHLORIDE 20 MEQ in WATER FOR INJECTION 1 100ML.BAG IVPB STA (15:38)
--- NOTE | 2021-01-01 15:54 | IR ---
PICC LINE PLACEMENT: HISTORY: TPN therapy PROCEDURE: Ultrasound and fluoroscopic guidance of PICC line placement. COMPLICATIONS: None ANESTHESIA: 1. 1% Lidocaine locally. FINDINGS/TECHNIQUE: The procedure was explained to the patient. The risks, complications, benefits and alternatives were discussed and any questions were answered. Informed consent was obtained. The patient was placed supine on the fluoroscopic table and prepped and draped in the usual sterile [facility] ion. Utilizing a 21 gauge needle and sonographic and fluoroscopic guidance, access in the vein was achieved and there is placement of a 0.018 guidewire. The vein is patent. A 4-F sheath was placed o tiffany the guidewire. The guidewire and dilator were removed and a 4-F. PICC line was placed through th e sheath with the tip at the level of the SVC. The sheath was removed, the catheter was flushed and sutured into position. The patient was stable throughout the procedure and remained stable upon disc harge from the Department of Radiology. The vein puncture was patent under ultrasound. A jackson scale image was obtained to document patency of the vein punctured. All elements of the maximal barrier technique were utilized. FLUOROSCOPY TIME: 0.3 minutes of fluoroscopy and one image submitted. IMPRESSION: Successful PICC line placement under ultrasound and fluoroscopic guidance.
[2021-01-01 16:19] LABS: Magnesium 2.3 mg/dL (1.6-2.3); Phosphorus 2.5 mg/dL (2.5-4.5)
[2021-01-01] MEDS ORDERED: INSULIN ASPART (NovoLOG) 100 UNIT/ML VIAL SQ SCH (16:30)
--- NOTE | 2021-01-01 16:50 | P.PN ---
Subjective Progress Note Date: 01/01/21 (stacy charting seen at 1030) Principal diagnosis: abdominal pain Patient is a 75-year-old male with a history of known peptic ulcer disease, GERD, kidney stones, and prior episodes of hypoglycemia who presented to the hospital with complaints of sudden onset sharp abdominal pain. On arrival to the ER his vital signs are normal limits. In the abdomen and pelvis was done which showed a moderate amount of intraperitoneal free air with free intraperitoneal fluid and air bubbles at the elisha hepatis and upper abdomen, perforation stomach or duodenum. Possible, he was also found have L3 4 and L4 5 spinal stenosis, bibasilar pulmonary infiltrates and atelectasis. Laboratory analysis was essentially within normal limits. He was taken for surgical repair of ruptured gastric ulcer. Patient seen and examined at bedside. Abdominal pain is still present though s omewhat better than yesterday, no nausea, feeling very dry and wanted to continue to drink. Not passing any flatus. General: ill appearing, mild distress due to pain, appears at stated age Derm: warm, dry Head: atraumatic, normocephalic, symmetric Eyes: EOMI, no lid lag, anicteric sclera Mouth: no lip lesion, mucus membranes moist Cardiovascular: S1S2 tachy, no murmur, positive posterior tibial pulse bilateral, Lungs: Decreased bs bilateral, no rhonchi, no rales , no accessory muscle use Abdominal: soft, +tender to palpation RUQ and LUQ, no guarding, no appreciable organomegaly, SOHA drain in place with sanguaneous drainage Ext: no gross muscle atrophy, no edema, no contractures Neuro: CN II-XI grossly intact, no focal neuro deficits Psych: Alert, oriented, appropriate affect Perforated gastric ulcer resulting in peritonitis, history of peptic ulcer disease and GERD s/p surgical repair Chronic gallbladder dysfunction s/p cholecystectomy Intractable Pain -Surgery recommendations: NPO, NGT, PICC and TPN -IV PPI -Patient should not take aspirin or Mobic on discharge - NGT in place, will have prolonged NPO status - IV fluids - pain control - rocephin and flagyl with peritonitits Tachycardia, sinus -Has not responded to IV fluid for bolus -Has not responded to increased pain control -Concerns for continued tachycardia of greater than 100 is somebody at age of 75. Unable to have oral meds upon checking with surgery. Transfer to carrier clinic. Start metoprolol 2.5 mg every 6 hours when necessary for heart rate greater than 125. - denies alcohol use - Likely pain mediated, ecourage pain control - tele Lactic acidosis secondary to above, resolved Chronic: History of prostate cancer Migraines History of Kidney stones Thank you for allowing us to participate in the care of this pleasant patient. Do not hesitate to contact us with questions. Someone can be reached from the [facility] hospitalist group all hours of the day at [phone] or via [email or web address]}. Objective - Vital Signs Vital signs: Vital Signs Temp 98.2 F 01/01/21 07:57 Pulse 139 H 01/01/21 12:00 Resp 18 01/01/21 08:00 BP 147/99 01/01/21 07:57 Pulse Ox 93 L 01/01/21 07:57 Intake & Output 12/31/20 01/01/21 01/01/21 18:59 06:59 18:59 Intake Total 0 Output Total 1090 800 0 Balance -1090 -800 0 Weight 65.771 kg Intake: Oral 0 Output: Drainage 20 Anterior Abdomen 20 Urine 1070 800 Uretheral ([place]) 820 Stool 0 Other: Voiding Method Indwelling Catheter Indwelling Catheter Indwelling Catheter - Labs CBC & Chem 7: 01/01/21 08:33 01/01/21 08:33 Labs: Abnormal Lab Results - Last 24 Hours (Table) 01/01/21 01/01/21 Range/Units 08:33 08:33 RBC 4.26 L (4.30-5.90) m/uL Lymphocytes # 0.5 L (1.0-4.8) k/uL Chloride 109 H (98-107) mmol/L BUN 28 H (9-20) mg/dL Creatinine 0.62 L (0.66-1.25) mg/dL Total Bilirubin 1.5 H (0.2-1.3) mg/dL Total Protein 4.8 L (6.3-8.2) g/dL Albumin 2.5 L (3.5-5.0) g/dL Microbiology - Last 24 Hours (Table) 12/28/20 19:50 Blood Culture - Preliminary Blood No Growth after 72 hours 12/28/20 19:50 Blood Culture - Preliminary Blood No Growth after 72 hours
[2021-01-01] MEDS ORDERED: MVI, ADULT NO.4 WITH VIT K 10 ML, TRACE (CONC-1ML/DOSE) 1 ML in AMINO ACID 5%-D15W+LYTE... IV SCH ×3 (18:00)
[2021-01-01 18:23] LABS: Glucose,Whole Blood 102 mg/dL (75-99)
[2021-01-01] MEDS: INSULIN ASPART (NovoLOG) 100 UNIT/ML VIAL SQ SCH (18:46)
[2021-01-01 23:53] LABS: Glucose,Whole Blood 116 mg/dL (75-99)
[2021-01-02] MEDS: HYDROmorphone 1 MG/ML 1 ML SYRINGE IVP PRN ×5 (00:02→22:07)
[2021-01-02] MEDS: INSULIN ASPART (NovoLOG) 100 UNIT/ML VIAL SQ SCH ×4 (02:01→18:40)
[2021-01-02] MEDS: metroNIDAZOLE-NS PMX 500 MG in SALINE 1 100ML.BAG IVPB SCH ×3 (02:06→17:07)
[2021-01-02 06:14] LABS: Glucose,Whole Blood 149 mg/dL (75-99)
[2021-01-02 07:24] LABS: Ionized Calcium 5.1 mg/dL (4.5-5.3)
[2021-01-02 07:28] LABS: ALT 19 U/L (4-49); AST 17 U/L (17-59); African American GFR (CKD) >90 (>60 ml/min/1.73 sqM); Albumin 2.2 g/dL (3.5-5.0); Alkaline Phosphatase 105 U/L (38-126); Anion Gap 3 mmol/L; Blood Urea Nitrogen 25 mg/dL (9-20); Carbon Dioxide 30 mmol/L (22-30); Chloride 110 mmol/L (98-107); Glucose 145 mg/dL (74-99); Non-African American GFR(CKD) >90 (>60 ml/min/1.73 sqM); Phosphorus 2.1 mg/dL (2.5-4.5); Potassium 3.4 mmol/L (3.5-5.1); Sodium 143 mmol/L (137-145); Total Bilirubin 1.3 mg/dL (0.2-1.3); Total Protein 4.4 g/dL (6.3-8.2)
[2021-01-02 07:30] LABS: Basophils % (A) 0 %; Eosinophils # (A) 0.1 k/uL (0-0.7); Eosinophils % (A) 1 %; HCT 40.4 % (39.0-53.0); HGB 13.3 gm/dL (13.0-17.5); Lymphocytes # (A) 0.6 k/uL (1.0-4.8); Lymphocytes % (A) 10 %; MCH 32.2 pg (25.0-35.0); MCHC 32.8 g/dL (31.0-37.0); MCV 97.9 fL (80.0-100.0); Mean Platelet Volume 7.1; Monocytes # (A) 0.3 k/uL (0-1.0); Monocytes % (A) 5 %; Neutrophils # (A) 4.8 k/uL (1.3-7.7); Neutrophils % (A) 83 %; Platelet Count 199 k/uL (150-450); RBC 4.13 m/uL (4.30-5.90); RDW 12.4 % (11.5-15.5); WBC 5.8 k/uL (3.8-10.6)
[2021-01-02 07:33] LABS: Magnesium 2.1 mg/dL (1.6-2.3)
[2021-01-02] MEDS: PANTOPRAZOLE 40 MG/10 ML VIAL IVP SCH ×2 (08:29→20:04)
[2021-01-02] MEDS: METOPROLOL TARTRATE 5 MG/5 ML VIAL IVP PRN ×2 (08:30→17:07)
[2021-01-02] MEDS: HEPARIN SODIUM,PORCINE/PF 5,000 UNIT/0.5 ML SYRINGE SQ SCH ×2 (08:30→15:36)
[2021-01-02] MEDS ORDERED: POTASSIUM PHOSPHATE 10 MMOL in SODIUM CHLORIDE 0.9% 100 ML IV ONE (09:30)
--- NOTE | 2021-01-02 09:44 | P.PN ---
Subjective Progress Note Date: 01/02/21 Principal diagnosis: Perforated ulcer Patient is doing better today. Says he does not have much pain at this time. Nasogastric tube is now bilious. SOHA drain tubing has serosanguineous fluid. There still is a hint of bile tinge to the bulb of the SOHA drain. His white blood cell count remains normal. Remains tachycardic. No fevers. Objective - Vital Signs Vital signs: Vital Signs Temp 98.1 F 01/02/21 04:00 Pulse 124 H 01/02/21 04:00 Resp 18 01/02/21 04:00 BP 145/104 01/02/21 04:00 Pulse Ox 97 01/02/21 04:00 Intake & Output 01/01/21 01/02/21 01/02/21 18:59 06:59 18:59 Output Total 150 1120 650 Balance -150 -1120 -650 Weight 65.771 kg 58 kg Output: Drainage 20 Anterior Abdomen 20 Urine 150 1100 650 Straight 400 Stool 0 0 Other: Voiding Method Indwelling Catheter Urinal - Exam Abdomen: Soft, minimal distention, minimal incisional tenderness, dressing clean and dry - Labs CBC & Chem 7: 01/02/21 06:37 01/02/21 06:37 Labs: Abnormal Lab Results - Last 24 Hours (Table) 01/01/21 01/01/21 01/01/21 Range/Units 08:33 18:14 23:46 RBC 4.26 L (4.30-5.90) m/uL Lymphocytes # 0.5 L (1.0-4.8) k/uL Potassium (3.5-5.1) mmol/L Chloride (98-107) mmol/L BUN (9-20) mg/dL Creatinine (0.66-1.25) mg/dL Glucose (74-99) mg/dL POC Glucose (mg/dL) 102 H 116 H (75-99) mg/dL Calcium (8.4-10.2) mg/dL Phosphorus (2.5-4.5) mg/dL Total Protein (6.3-8.2) g/dL Albumin (3.5-5.0) g/dL 01/02/21 01/02/21 01/02/21 Range/Units 05:58 06:37 06:37 RBC 4.13 L (4.30-5.90) m/uL Lymphocytes # 0.6 L (1.0-4.8) k/uL Potassium 3.4 L (3.5-5.1) mmol/L Chloride 110 H (98-107) mmol/L BUN 25 H (9-20) mg/dL Creatinine 0.60 L (0.66-1.25) mg/dL Glucose 145 H (74-99) mg/dL POC Glucose (mg/dL) 149 H (75-99) mg/dL Calcium 8.0 L (8.4-10.2) mg/dL Phosphorus 2.1 L (2.5-4.5) mg/dL Total Protein 4.4 L (6.3-8.2) g/dL Albumin 2.2 L (3.5-5.0) g/dL Microbiology - Last 24 Hours (Table) 12/28/20 19:50 Blood Culture - Preliminary Blood No Growth after 96 hours 12/28/20 19:50 Blood Culture - Preliminary Blood No Growth after 96 hours Assessment and Plan (1) Gastric ulcer with perforation Narrative/Plan: Patient continues to gradually improve. We'll continue to monitor the patient's drain output appearance. Continue broad-spectrum antibiotics. Keep nothing by mouth with nasogastric tube to low intermittent suction and continue TPN which was initiated yesterday. Current Visit: Yes Status: Acute Code(s): K25.5 - CHRONIC OR UNSPECIFIED GASTRIC ULCER WITH PERFORATION SNOMED Code(s): 6532210
[2021-01-02] MEDS ORDERED: POTASSIUM CHLORIDE 20 MEQ in WATER FOR INJECTION 1 100ML.BAG IVPB ONE (11:30)
[2021-01-02 12:12] LABS: Glucose,Whole Blood 131 mg/dL (75-99)
[2021-01-02] MEDS: SODIUM CHLORIDE 0.9% 1,000 ML IV SCH (15:37)
--- NOTE | 2021-01-02 15:47 | P.PN ---
Subjective Progress Note Date: 01/02/21 Principal diagnosis: abdominal pain Patient is a 75-year-old male with a history of known peptic ulcer disease, GERD, kidney stones, and prior episodes of hypoglycemia who presented to the hospital with complaints of sudden onset sharp abdominal pain. On arrival to the ER his vital signs are normal limits. In the abdomen and pelvis was done which showed a moderate amount of intraperitoneal free air with free intraperitoneal fluid and air bubbles at the elisha hepatis and upper abdomen, perforation stomach or duodenum. Possible, he was also found have L3 4 and L4 5 spinal stenosis, bibasilar pulmonary infiltrates and atelectasis. Laboratory analysis was essentially within normal limits. He was taken for surgical repair of ruptured gastric ulcer. Patient seen and examined at bedside. He is more awake and conversive today, he states his belly pain is getting slightly better every day. Denies any nausea or vomiting. States that his mouth is very dry. General: ill appearing, no distress, appears at stated age Derm: warm, dry Head: atraumatic, normocephalic, symmetric Eyes: EOMI, no lid lag, anicteric sclera Mouth: no lip lesion, mucus membranes moist Cardiovascular: S1S2 tachy, no murmur, positive posterior tibial pulse bilateral, Lungs: Decreased bs bilateral, no rhonchi, no rales , no accessory muscle use Abdominal: soft, +tender to palpation diffusely, no guarding, no appreciable organomegaly, SOHA drain in place with sanguaneous drainage Ext: no gross muscle atrophy, no edema, no contractures Neuro: CN II-XI grossly intact, no focal neuro deficits Psych: Alert, oriented, appropriate affect Perforated gastric ulcer resulting in peritonitis, history of peptic ulcer disease and GERD s/p surgical repair Chronic gallbladder dysfunction s/p cholecystectomy Intractable Pain -Surgery recommendations: NPO, NGT, PICC and TPN -IV PPI -Patient should not take aspirin or Mobic on discharge - NGT in place, will have prolonged NPO status - IV fluids - pain control - rocephin and flagyl with peritonitits D# 4/7 Tachycardia, sinus -Has not responded to IV fluid for bolus -Has not responded to increased pain control -Concerns for continued tachycardia of greater than 100 in patient at age of 75. Unable to have oral meds upon checking with surgery. Transfered to the [facility]. Metoprolol 5 mg every 6 hours when necessary for heart rate greater than 125. - denies alcohol use - Likely pain mediated, encourage pain control - tele Hypokalemia, hypophosphatemia -Replace and recheck Lactic acidosis secondary to above, resolved Chronic: History of prostate cancer Migraines History of Kidney stones Thank you for allowing us to participate in the care of this pleasant patient. Do not hesitate to contact us with questions. Someone can be reached from the [facility] hospitalist group all hours of the day at [phone] or via [email or web address]. Objective - Vital Signs Vital signs: Vital Signs Temp 98.6 F 01/02/21 08:00 Pulse 114 H 01/02/21 08:00 Resp 18 01/02/21 08:00 BP 150/89 01/02/21 08:00 Pulse Ox 94 L 01/02/21 08:00 Intake & Output 01/01/21 01/02/21 01/02/21 18:59 06:59 18:59 Output Total 150 1120 650 Balance -150 -1120 -650 Weight 65.771 kg 58 kg 58 kg Output: Drainage 20 Anterior Abdomen 20 Urine 150 1100 650 Straight 400 Stool 0 0 0 Other: Voiding Method Indwelling Catheter Urinal External Catheter - Labs CBC & Chem 7: 01/02/21 06:37 01/02/21 06:37 Labs: Abnormal Lab Results - Last 24 Hours (Table) 01/01/21 01/01/21 01/02/21 Range/Units 18:14 23:46 05:58 RBC (4.30-5.90) m/uL Lymphocytes # (1.0-4.8) k/uL Potassium (3.5-5.1) mmol/L Chloride (98-107) mmol/L BUN (9-20) mg/dL Creatinine (0.66-1.25) mg/dL Glucose (74-99) mg/dL POC Glucose (mg/dL) 102 H 116 H 149 H (75-99) mg/dL Calcium (8.4-10.2) mg/dL Phosphorus (2.5-4.5) mg/dL Total Protein (6.3-8.2) g/dL Albumin (3.5-5.0) g/dL 01/02/21 01/02/21 01/02/21 Range/Units 06:37 06:37 12:11 RBC 4.13 L (4.30-5.90) m/uL Lymphocytes # 0.6 L (1.0-4.8) k/uL Potassium 3.4 L (3.5-5.1) mmol/L Chloride 110 H (98-107) mmol/L BUN 25 H (9-20) mg/dL Creatinine 0.60 L (0.66-1.25) mg/dL Glucose 145 H (74-99) mg/dL POC Glucose (mg/dL) 131 H (75-99) mg/dL Calcium 8.0 L (8.4-10.2) mg/dL Phosphorus 2.1 L (2.5-4.5) mg/dL Total Protein 4.4 L (6.3-8.2) g/dL Albumin 2.2 L (3.5-5.0) g/dL Microbiology - Last 24 Hours (Table) 12/28/20 19:50 Blood Culture - Preliminary Blood No Growth after 96 hours 12/28/20 19:50 Blood Culture - Preliminary Blood No Growth after 96 hours
[2021-01-02] MEDS: FAT EMULSION 20% 250 ML in EMPTY BAG 1 BAG IV SCH (17:07)
[2021-01-02 17:16] LABS: Glucose,Whole Blood 131 mg/dL (75-99)
[2021-01-02] MEDS ORDERED: 1: MVI, ADULT NO.4 WITH VIT K 10 ML, TRACE (CONC-1ML/DOSE) 1 ML in AMINO ACID 5%-D15W+LY IV SCH ×3 (19:00)
[2021-01-03 00:11] LABS: Glucose,Whole Blood 149 mg/dL (75-99)
[2021-01-03] MEDS: HEPARIN SODIUM,PORCINE/PF 5,000 UNIT/0.5 ML SYRINGE SQ SCH ×4 (00:13→23:57)
[2021-01-03] MEDS: INSULIN ASPART (NovoLOG) 100 UNIT/ML VIAL SQ SCH ×4 (00:14→17:28)
[2021-01-03] MEDS: METOPROLOL TARTRATE 5 MG/5 ML VIAL IVP PRN ×2 (00:15→16:08)
[2021-01-03] MEDS: HYDROmorphone 1 MG/ML 1 ML SYRINGE IVP PRN ×8 (00:15→23:57)
[2021-01-03] MEDS: metroNIDAZOLE-NS PMX 500 MG in SALINE 1 100ML.BAG IVPB SCH ×3 (01:31→16:08)
[2021-01-03 06:02] LABS: Glucose,Whole Blood 142 mg/dL (75-99)
[2021-01-03 08:07] LABS: African American GFR (CKD) >90 (>60 ml/min/1.73 sqM); Anion Gap 4 mmol/L; Blood Urea Nitrogen 22 mg/dL (9-20); Carbon Dioxide 31 mmol/L (22-30); Chloride 106 mmol/L (98-107); Glucose 160 mg/dL (74-99); Non-African American GFR(CKD) >90 (>60 ml/min/1.73 sqM); Phosphorus 2.8 mg/dL (2.5-4.5); Potassium 3.4 mmol/L (3.5-5.1); Sodium 141 mmol/L (137-145)
[2021-01-03] MEDS: PANTOPRAZOLE 40 MG/10 ML VIAL IVP SCH ×2 (08:12→20:13)
[2021-01-03] MEDS ORDERED: Potassium Replacement Protocol 1 EACH MISC MISCELLANE PRN (10:38)
--- NOTE | 2021-01-03 10:42 | P.PN ---
Subjective Progress Note Date: 01/03/21 Principal diagnosis: Perforated ulcer Patient doing well today. Would like to get up in the chair today. Less tachycardic with heart rate in the low 100s. Says his pain is same or improved. Appears comfortable. Objective - Vital Signs Vital signs: Vital Signs Temp 98.2 F 01/03/21 08:05 Pulse 107 H 01/03/21 08:05 Resp 18 01/03/21 08:05 BP 142/94 01/03/21 08:05 Pulse Ox 96 01/03/21 08:05 Intake & Output 01/02/21 01/03/21 01/03/21 18:59 06:59 18:59 Intake Total 0 Output Total 900 890 0 Balance -900 -890 0 Weight 58 kg 64 kg Intake: Oral 0 Output: Drainage 40 0 Anterior Abdomen 40 0 Urine 900 850 Stool 0 0 0 Other: Voiding Method External Catheter Urinal Urinal # Voids 2 - Exam Abdomen: Soft, nondistended, minimal tenderness, SOHA serosanguineous - Labs CBC & Chem 7: 01/02/21 06:37 01/03/21 07:38 Labs: Abnormal Lab Results - Last 24 Hours (Table) 01/02/21 01/02/21 01/03/21 Range/Units 12:11 17:15 00:09 Potassium (3.5-5.1) mmol/L Carbon Dioxide (22-30) mmol/L BUN (9-20) mg/dL Creatinine (0.66-1.25) mg/dL Glucose (74-99) mg/dL POC Glucose (mg/dL) 131 H 131 H 149 H (75-99) mg/dL Calcium (8.4-10.2) mg/dL 01/03/21 01/03/21 Range/Units 05:58 07:38 Potassium 3.4 L (3.5-5.1) mmol/L Carbon Dioxide 31 H (22-30) mmol/L BUN 22 H (9-20) mg/dL Creatinine 0.44 L (0.66-1.25) mg/dL Glucose 160 H (74-99) mg/dL POC Glucose (mg/dL) 142 H (75-99) mg/dL Calcium 8.0 L (8.4-10.2) mg/dL Microbiology - Last 24 Hours (Table) 12/28/20 19:50 Blood Culture - Preliminary Blood No Growth after 120 hours 12/28/20 19:50 Blood Culture - Preliminary Blood No Growth after 120 hours Assessment and Plan (1) Gastric ulcer with perforation Narrative/Plan: Patient doing better. Appearance of the SOHA drain is now fairly normal. Nasogastric tube is scant bilious. He has passed flatus. Keep nasogastric tube to suction. Increase activity. Possible imaging study 01/05 with initiation of diet. Continue TPN and antibiotics for now. Current Visit: Yes Status: Acute Code(s): K25.5 - CHRONIC OR UNSPECIFIED GASTRIC ULCER WITH PERFORATION SNOMED Code(s): 8997542
[2021-01-03] MEDS: POTASSIUM CHLORIDE 20 MEQ in WATER FOR INJECTION 1 100ML.BAG IVPB SCH ×2 (11:17→13:46)
[2021-01-03 12:01] LABS: Glucose,Whole Blood 129 mg/dL (75-99)
--- NOTE | 2021-01-03 14:55 | P.PN ---
Subjective Progress Note Date: 01/03/21 Principal diagnosis: abdominal pain Patient is a 75-year-old male with a history of known peptic ulcer disease, GERD, kidney stones, and prior episodes of hypoglycemia who presented to the hospital with complaints of sudden onset sharp abdominal pain. On arrival to the ER his vital signs are normal limits. In the abdomen and pelvis was done which showed a moderate amount of intraperitoneal free air with free intraperitoneal fluid and air bubbles at the elisha hepatis and upper abdomen, perforation stomach or duodenum. Possible, he was also found have L3 4 and L4 5 spinal stenosis, bibasilar pulmonary infiltrates and atelectasis. Laboratory analysis was essentially within normal limits. He was taken for surgical repair of ruptured gastric ulcer. Patient seen and examined at bedside. Pain is better controlled today, still feeling thirsty, passing gas, no shortness of breath General:non toxic, no distress, appears at stated age Derm: warm, dry Head: atraumatic, normocephalic, symmetric Eyes: EOMI, no lid lag, anicteric sclera Mouth: no lip lesion, mucus membranes moist Cardiovascular: S1S2 tachy, no murmur, positive posterior tibial pulse bilater al, Lungs: CTA bilateral, no rhonchi, no rales , no accessory muscle use Abdominal: soft, +tender to palpation diffusely, no guarding, no appreciable organomegaly, SOHA drain in place with sanguaneous drainage Ext: no gross muscle atrophy, no edema, no contractures Neuro: CN II-XI grossly intact, no focal neuro deficits Psych: Alert, oriented, appropriate affect Perforated gastric ulcer resulting in peritonitis, history of peptic ulcer disease and GERD s/p surgical repair Chronic gallbladder dysfunction s/p cholecystectomy Intractable Pain -Surgery recommendations: NPO, NGT, PICC and TPN -IV PPI -Patient should not take aspirin or Mobic on discharge - pain control - rocephin and flagyl with peritonitits D# 4/7 Tachycardia, sinus -Has not responded to IV fluid for bolus -Has not responded to increased pain control -Concerns for continued tachycardia of greater than 100 in patient at age of 75. Metoprolol 5 mg every 6 hours when necessary for heart rate greater than 125. - denies alcohol use - Likely pain mediated, encourage pain control - tele Hypokalemia - managed with TPN Hypophosphatemia, resolved Lactic acidosis secondary to above, resolved Chronic: History of prostate cancer Migraines History of Kidney stones Thank you for allowing us to participate in the care of this pleasant patient. Do not hesitate to contact us with questions. Someone can be reached from the [facility] hospitalist group all hours of the day at [phone] or via perfect serve. Objective - Vital Signs Vital signs: Vital Signs Temp 98.2 F 01/03/21 08:05 Pulse 112 H 01/03/21 14:00 Resp 18 01/03/21 14:00 BP 130/84 01/03/21 11:18 Pulse Ox 95 01/03/21 11:18 Intake & Output 01/02/21 01/03/21 01/03/21 18:59 06:59 18:59 Intake Total 1190 Output Total 900 890 300 Balance -900 -890 890 Weight 58 kg 64 kg Intake: Intake, IV Titration 1190 Amount Potassium Chloride 20 meq 200 In Water For Injection 1 100ml.bag @ 50 mls/hr IVPB Q2H T[facility]AR Rx#: [id number] Potassium Chloride 30 meq 840 In Amino Acid 5%-D15w+ Lytes*E* 1,000 ml @ 70 mls/hr IV .BY DURATION TAMAR Rx#:[id number] cefTRIAXone 1 gm In 50 Sodium Chloride 0.9% 50 ml @ 100 mls/hr IVPB Q24HR TAMAR Rx#:[id number] PMX 500 100 mg In Saline 1 100ml.bag @ 100 mls/hr IVPB Q8H TAMAR Rx#:[id number] Oral 0 Output: Drainage 40 0 Anterior Abdomen 40 0 Urine 900 850 300 Stool 0 0 0 Other: Voiding Method External Catheter Urinal Urinal # Voids 2 - Labs CBC & Chem 7: 01/02/21 06:37 01/03/21 07:38 Labs: Abnormal Lab Results - Last 24 Hours (Table) 01/02/21 01/03/21 01/03/21 Range/Units 17:15 00:09 05:58 Potassium (3.5-5.1) mmol/L Carbon Dioxide (22-30) mmol/L BUN (9-20) mg/dL Creatinine (0.66-1.25) mg/dL Glucose (74-99) mg/dL POC Glucose (mg/dL) 131 H 149 H 142 H (75-99) mg/dL Calcium (8.4-10.2) mg/dL 01/03/21 01/03/21 Range/Units 07:38 11:59 Potassium 3.4 L (3.5-5.1) mmol/L Carbon Dioxide 31 H (22-30) mmol/L BUN 22 H (9-20) mg/dL Creatinine 0.44 L (0.66-1.25) mg/dL Glucose 160 H (74-99) mg/dL POC Glucose (mg/dL) 129 H (75-99) mg/dL Calcium 8.0 L (8.4-10.2) mg/dL Microbiology - Last 24 Hours (Table) 12/28/20 19:50 Blood Culture - Preliminary Blood No Growth after 120 hours 12/28/20 19:50 Blood Culture - Preliminary Blood No Growth after 120 hours
[2021-01-03 16:54] LABS: Glucose,Whole Blood 157 mg/dL (75-99)
[2021-01-03] MEDS: FAT EMULSION 20% 250 ML in EMPTY BAG 1 BAG IV SCH (17:28)
--- NOTE | 2021-01-03 19:14 | XR ---
EXAMINATION TYPE: XR abdomen 2V DATE OF EXAM: 01/03/2021 COMPARISON: 12/31/2020 HISTORY: Abdominal pain TECHNIQUE: Supine and upright views FINDINGS: There is no sign of intestinal obstruction or pneumoperitoneum. There is nasogastric tube i n the stomach. There are skin abad over the midline abdomen. I see no evidence of free air. There is drainage catheter over the pelvis. IMPRESSION: There is decrease in the intestinal gas compared to recent exam and consistent with impro vement in the ileus. No free air.
[2021-01-03 19:58] LABS: Basophils % (A) 0 %; Eosinophils # (A) 0.1 k/uL (0-0.7); Eosinophils % (A) 2 %; HCT 41.7 % (39.0-53.0); HGB 14.1 gm/dL (13.0-17.5); Lymphocytes # (A) 0.5 k/uL (1.0-4.8); Lymphocytes % (A) 10 %; MCH 33.1 pg (25.0-35.0); MCHC 33.7 g/dL (31.0-37.0); MCV 98.2 fL (80.0-100.0); Mean Platelet Volume 7.6; Monocytes # (A) 0.3 k/uL (0-1.0); Monocytes % (A) 6 %; Neutrophils # (A) 3.9 k/uL (1.3-7.7); Neutrophils % (A) 80 %; Platelet Count 235 k/uL (150-450); RBC 4.25 m/uL (4.30-5.90); RDW 12.6 % (11.5-15.5); WBC 4.9 k/uL (3.8-10.6)
[2021-01-04 00:02] LABS: Glucose,Whole Blood 140 mg/dL (75-99)
[2021-01-04] MEDS: INSULIN ASPART (NovoLOG) 100 UNIT/ML VIAL SQ SCH ×5 (00:38→23:12)
[2021-01-04] MEDS: 1: MVI, ADULT NO.4 WITH VIT K 10 ML, TRACE (CONC-1ML/DOSE) 1 ML, POTASSIUM CHLORIDE 30 M IV SCH ×8 (01:35→16:20)
[2021-01-04] MEDS: metroNIDAZOLE-NS PMX 500 MG in SALINE 1 100ML.BAG IVPB SCH ×3 (01:43→16:21)
[2021-01-04] MEDS: HYDROmorphone 1 MG/ML 1 ML SYRINGE IVP PRN ×8 (02:12→23:16)
[2021-01-04 05:43] LABS: Glucose,Whole Blood 151 mg/dL (75-99)
[2021-01-04] MEDS: HEPARIN SODIUM,PORCINE/PF 5,000 UNIT/0.5 ML SYRINGE SQ SCH ×3 (08:04→23:16)
[2021-01-04] MEDS: PANTOPRAZOLE 40 MG/10 ML VIAL IVP SCH ×2 (08:04→19:49)
[2021-01-04 08:41] LABS: Basophils % (A) 0 %; Eosinophils # (A) 0.2 k/uL (0-0.7); Eosinophils % (A) 4 %; HCT 39.3 % (39.0-53.0); HGB 12.9 gm/dL (13.0-17.5); Lymphocytes # (A) 0.6 k/uL (1.0-4.8); Lymphocytes % (A) 13 %; MCH 32.3 pg (25.0-35.0); MCV 97.9 fL (80.0-100.0); Mean Platelet Volume 7.4; Monocytes # (A) 0.2 k/uL (0-1.0); Monocytes % (A) 4 %; Neutrophils # (A) 3.7 k/uL (1.3-7.7); Neutrophils % (A) 78 %; Platelet Count 232 k/uL (150-450); RBC 4.01 m/uL (4.30-5.90); RDW 12.5 % (11.5-15.5); WBC 4.8 k/uL (3.8-10.6)
[2021-01-04 08:57] LABS: African American GFR (CKD) >90 (>60 ml/min/1.73 sqM); Anion Gap 3 mmol/L; Blood Urea Nitrogen 25 mg/dL (9-20); Calcium 8.2 mg/dL (8.4-10.2); Carbon Dioxide 33 mmol/L (22-30); Chloride 103 mmol/L (98-107); Glucose 142 mg/dL (74-99); Non-African American GFR(CKD) >90 (>60 ml/min/1.73 sqM); Phosphorus 3.1 mg/dL (2.5-4.5); Potassium 3.9 mmol/L (3.5-5.1); Sodium 139 mmol/L (137-145)
[2021-01-04] MEDS: METOPROLOL TARTRATE 5 MG/5 ML VIAL IVP PRN ×2 (09:39→17:23)
--- NOTE | 2021-01-04 10:34 | P.PN ---
Subjective Progress Note Date: 01/04/21 Principal diagnosis: Perforated ulcer Patient doing well today. He was slightly more tachycardic yesterday. After he got up into the chair and went back to bed the patient had significant SOHA drain output that was serosanguineous in nature. Over 800 mL over a period of about 3 -4 hours. Hemoglobin did not change last night. Today's hemoglobin 12.9. White blood cell count remains normal. He is afebrile. X-ray was obtained. X- ray does suggest that the drain moved slightly more inferiorly into the pelvis. Nasogastric tube actually looks like it is a bit too far in. We'll withdraw somewhat. Objective - Vital Signs Vital signs: Vital Signs Temp 98.7 F 01/04/21 08:00 Pulse 117 H 01/04/21 08:00 Resp 18 01/04/21 08:00 BP 151/102 01/04/21 08:00 Pulse Ox 93 L 01/04/21 08:00 Intake & Output 01/03/21 01/04/21 01/04/21 18:59 06:59 18:59 Intake Total 1190 0 Output Total 960 1450 Balance 230 -1450 0 Weight 61.5 kg Intake: Intake, IV Titration 1190 Amount Potassium Chloride 20 meq 200 In Water For Injection 1 100ml.bag @ 50 mls/hr IVPB Q2H [facility] Rx#: [id number] Potassium Chloride 30 meq 840 In Amino Acid 5%-D15w+ Lytes*E* 1,000 ml @ 70 mls/hr IV .BY DURATION [facility] Rx#:[id number] cefTRIAXone 1 gm In 50 Sodium Chloride 0.9% 50 ml @ 100 mls/hr IVPB Q24HR [facility] Rx#:[id number] metroNIDAZOLE-NS PMX 500 100 mg In Saline 1 100ml.bag @ 100 mls/hr IVPB Q8H [facility] Rx#:[id number] Oral 0 0 Output: Drainage 660 900 Anterior Abdomen 660 900 Urine 300 550 Stool 0 Other: Voiding Method Urinal Urinal # Voids 1 - Exam Abdomen: Soft, nondistended, minimal tenderness SOHA serosanguineous - Labs CBC & Chem 7: 01/04/21 07:54 01/04/21 07:54 Labs: Abnormal Lab Results - Last 24 Hours (Table) 01/03/21 01/03/21 01/03/21 Range/Units 11:59 16:51 19:32 RBC 4.25 L (4.30-5.90) m/uL Hgb (13.0-17.5) gm/dL Lymphocytes # 0.5 L (1.0-4.8) k/uL Carbon Dioxide (22-30) mmol/L BUN (9-20) mg/dL Creatinine (0.66-1.25) mg/dL Glucose (74-99) mg/dL POC Glucose (mg/dL) 129 H 157 H (75-99) mg/dL Calcium (8.4-10.2) mg/dL 01/04/21 01/04/21 01/04/21 Range/Units 00:01 05:40 07:54 RBC (4.30-5.90) m/uL Hgb (13.0-17.5) gm/dL Lymphocytes # (1.0-4.8) k/uL Carbon Dioxide 33 H (22-30) mmol/L BUN 25 H (9-20) mg/dL Creatinine 0.45 L (0.66-1.25) mg/dL Glucose 142 H (74-99) mg/dL POC Glucose (mg/dL) 140 H 151 H (75-99) mg/dL Calcium 8.2 L (8.4-10.2) mg/dL 01/04/21 Range/Units 07:54 RBC 4.01 L (4.30-5.90) m/uL Hgb 12.9 L (13.0-17.5) gm/dL Lymphocytes # 0.6 L (1.0-4.8) k/uL Carbon Dioxide (22-30) mmol/L BUN (9-20) mg/dL Creatinine (0.66-1.25) mg/dL Glucose (74-99) mg/dL POC Glucose (mg/dL) (75-99) mg/dL Calcium (8.4-10.2) mg/dL Microbiology - Last 24 Hours (Table) 12/28/20 19:50 Blood Culture - Final Blood No Growth after 144 hours 12/28/20 19:50 Blood Culture - Final Blood No Growth after 144 hours Assessment and Plan (1) Gastric ulcer with perforation Narrative/Plan: Patient doing better. Keep nasogastric tube to suction. Possibly remove nasogastric tube tomorrow. Withdrawn nasogastric tube 10 cm. Current Visit: Yes Status: Acute Code(s): K25.5 - CHRONIC OR UNSPECIFIED GASTRIC ULCER WITH PERFORATION SNOMED Code(s): 0047995
--- NOTE | 2021-01-04 11:47 | P.PN ---
Subjective Progress Note Date: 01/04/21 Principal diagnosis: abdominal pain Patient is a 75-year-old male with a history of known peptic ulcer disease, GERD, kidney stones, and prior episodes of hypoglycemia who presented to the hospital with complaints of sudden onset sharp abdominal pain. On arrival to the ER his vital signs are normal limits. In the abdomen and pelvis was done which showed a moderate amount of intraperitoneal free air with free intraperitoneal fluid and air bubbles at the elisha hepatis and upper abdomen, perforation stomach or duodenum. Possible, he was also found have L3 4 and L4 5 spinal stenosis, bibasilar pulmonary infiltrates and atelectasis. Laboratory analysis was essentially within normal limits. He was taken for surgical repair of ruptured gastric ulcer. He has continued to progress well. He did have increased output from his SOHA drains on 01/03. Patient seen and examined at bedside. No chest pain, no shortness of breath, No nausea, abdominal pain is less than prior and at a 6/10. General:non toxic, no distress, appears at stated age Derm: warm, dry Head: atraumatic, normocephalic, symmetric Eyes: EOMI, no lid lag, anicteric sclera Mouth: no lip lesion, mucus membranes moist Cardiovascular: S1S2 tachy, no murmur, positive posterior tibial pulse bilateral, Lungs: CTA bilateral, no rhonchi, no rales , no accessory muscle use Abdominal: soft, +tender to palpation diffusely, no guarding, no appreciable organomegaly, SOHA drain in place with sanguaneous drainage Ext: no gross muscle atrophy, no edema, no contractures Neuro: CN II-XI grossly intact, no focal neuro deficits Psych: Alert, oriented, appropriate affect Perforated gastric ulcer resulting in peritonitis, history of peptic ulcer disease and GERD s/p surgical repair Chronic gallbladder dysfunction s/p cholecystectomy Intractable Pain -Surgery recommendations: NPO, NGT, PICC and TPN -IV PPI -Patient should not take aspirin or Mobic on discharge - pain control - rocephin and flagyl with peritonitits D# 4/7 Tachycardia, sinus -Has not responded to IV fluid for bolus -Has not responded to increased pain control -Concerns for continued tachycardia of greater than 100 in patient at age of 75. Metoprolol 5 mg every 6 hours when necessary for heart rate greater than 125. - denies alcohol use - Likely pain mediated, encourage pain control - tele Hypokalemia, resolved Hypophosphatemia, resolved Lactic acidosis secondary to above, resolved Chronic: History of prostate cancer Migraines History of Kidney stones Thank you for allowing us to participate in the care of this pleasant patient. Do not hesitate to contact us with questions. Someone can be reached from the [facility] hospitalist group all hours of the day at [phone] or via perfect serve. Objective - Vital Signs Vital signs: Vital Signs Temp 97.8 F 01/04/21 11:37 Pulse 108 H 01/04/21 11:37 Resp 18 01/04/21 11:37 BP 119/72 01/04/21 11:37 Pulse Ox 95 01/04/21 11:37 Intake & Output 01/03/21 01/04/21 01/04/21 18:59 06:59 18:59 Intake Total 1190 0 Output Total 960 1450 100 Balance 230 -1450 -100 Weight 61.5 kg Intake: Intake, IV Titration 1190 Amount Potassium Chloride 20 meq 200 In Water For Injection 1 100ml.bag @ 50 mls/hr IVPB Q2H [facility] Rx#: [id number] Potassium Chloride 30 meq 840 In Amino Acid 5%-D15w+ Lytes*E* 1,000 ml @ 70 mls/hr IV .BY DURATION [facility] Rx#:[id number] cefTRIAXone 1 gm In 50 Sodium Chloride 0.9% 50 ml @ 100 mls/hr IVPB Q24HR [facility] Rx#:[id number] metroNIDAZOLE-NS PMX 500 100 mg In Saline 1 100ml.bag @ 100 mls/hr IVPB Q8H [facility] Rx#:[id number] Oral 0 0 Output: Drainage 660 900 100 Anterior Abdomen 660 900 100 Urine 300 550 Stool 0 0 Other: Voiding Method Urinal Urinal Urinal # Voids 1 - Labs CBC & Chem 7: 01/04/21 07:54 01/04/21 07:54 Labs: Abnormal Lab Results - Last 24 Hours (Table) 01/03/21 01/03/21 01/03/21 Range/Units 11:59 16:51 19:32 RBC 4.25 L (4.30-5.90) m/uL Hgb (13.0-17.5) gm/dL Lymphocytes # 0.5 L (1.0-4.8) k/uL Carbon Dioxide (22-30) mmol/L BUN (9-20) mg/dL Creatinine (0.66-1.25) mg/dL Glucose (74-99) mg/dL POC Glucose (mg/dL) 129 H 157 H (75-99) mg/dL Calcium (8.4-10.2) mg/dL 01/04/21 01/04/21 01/04/21 Range/Units 00:01 05:40 07:54 RBC (4.30-5.90) m/uL Hgb (13.0-17.5) gm/dL Lymphocytes # (1.0-4.8) k/uL Carbon Dioxide 33 H (22-30) mmol/L BUN 25 H (9-20) mg/dL Creatinine 0.45 L (0.66-1.25) mg/dL Glucose 142 H (74-99) mg/dL POC Glucose (mg/dL) 140 H 151 H (75-99) mg/dL Calcium 8.2 L (8.4-10.2) mg/dL 01/04/21 Range/Units 07:54 RBC 4.01 L (4.30-5.90) m/uL Hgb 12.9 L (13.0-17.5) gm/dL Lymphocytes # 0.6 L (1.0-4.8) k/uL Carbon Dioxide (22-30) mmol/L BUN (9-20) mg/dL Creatinine (0.66-1.25) mg/dL Glucose (74-99) mg/dL POC Glucose (mg/dL) (75-99) mg/dL Calcium (8.4-10.2) mg/dL Microbiology - Last 24 Hours (Table) 12/28/20 19:50 Blood Culture - Final Blood No Growth after 144 hours 12/28/20 19:50 Blood Culture - Final Blood No Growth after 144 hours
[2021-01-04 11:51] LABS: Glucose,Whole Blood 137 mg/dL (75-99)
[2021-01-04 16:40] LABS: Glucose,Whole Blood 144 mg/dL (75-99)
[2021-01-04] MEDS: FAT EMULSION 20% 250 ML in EMPTY BAG 1 BAG IV SCH (17:23)
[2021-01-04 21:04] LABS: Glucose,Whole Blood 121 mg/dL (75-99)
[2021-01-04 23:10] LABS: Glucose,Whole Blood 128 mg/dL (75-99)
[2021-01-05] MEDS: metroNIDAZOLE-NS PMX 500 MG in SALINE 1 100ML.BAG IVPB SCH ×2 (01:07→08:04)
[2021-01-05] MEDS: METOPROLOL TARTRATE 5 MG/5 ML VIAL IVP PRN ×2 (02:03→18:24)
[2021-01-05] MEDS: HYDROmorphone 1 MG/ML 1 ML SYRINGE IVP PRN ×6 (02:09→23:09)
[2021-01-05] MEDS: 1: MVI, ADULT NO.4 WITH VIT K 10 ML, TRACE (CONC-1ML/DOSE) 1 ML, POTASSIUM CHLORIDE 30 M IV SCH ×4 (05:19)
[2021-01-05 06:15] LABS: Glucose,Whole Blood 130 mg/dL (75-99)
[2021-01-05] MEDS: INSULIN ASPART (NovoLOG) 100 UNIT/ML VIAL SQ SCH ×4 (06:22→23:03)
[2021-01-05] MEDS: HEPARIN SODIUM,PORCINE/PF 5,000 UNIT/0.5 ML SYRINGE SQ SCH ×3 (08:03→23:09)
[2021-01-05] MEDS: PANTOPRAZOLE 40 MG/10 ML VIAL IVP SCH ×2 (08:04→20:00)
[2021-01-05 08:17] LABS: African American GFR (CKD) >90 (>60 ml/min/1.73 sqM); Anion Gap 3 mmol/L; Blood Urea Nitrogen 20 mg/dL (9-20); Calcium 8.4 mg/dL (8.4-10.2); Carbon Dioxide 32 mmol/L (22-30); Chloride 103 mmol/L (98-107); Glucose 149 mg/dL (74-99); Magnesium 1.9 mg/dL (1.6-2.3); Non-African American GFR(CKD) >90 (>60 ml/min/1.73 sqM); Phosphorus 3.3 mg/dL (2.5-4.5); Potassium 4.4 mmol/L (3.5-5.1); Sodium 138 mmol/L (137-145)
[2021-01-05 10:39] LABS: Glucose,Whole Blood 133 mg/dL (75-99)
[2021-01-05 10:41] LABS: HGB 13.3 gm/dL (13.0-17.5); MCH 32.8 pg (25.0-35.0); MCHC 33.4 g/dL (31.0-37.0); MCV 98.3 fL (80.0-100.0); Mean Platelet Volume 8.3; Platelet Count 271 k/uL (150-450); RBC 4.07 m/uL (4.30-5.90); RDW 12.4 % (11.5-15.5); WBC 6.1 k/uL (3.8-10.6)
--- NOTE | 2021-01-05 14:32 | P.PN ---
Subjective Progress Note Date: 01/05/21 (delayed charting seen at 1030) Principal diagnosis: abdominal pain Patient is a 75-year-old male with a history of known peptic ulcer disease, GERD, kidney stones, and prior episodes of hypoglycemia who presented to the hospital with complaints of sudden onset sharp abdominal pain. On arrival to the ER his vital signs are normal limits. In the abdomen and pelvis was done which showed a moderate amount of intraperitoneal free air with free intraperitoneal fluid and air bubbles at the elisha hepatis and upper abdomen, perforation stomach or duodenum. Possible, he was also found have L3 4 and L4 5 spinal stenosis, bibasilar pulmonary infiltrates and atelectasis. Laboratory analysis was essentially within normal limits. He was taken for surgical repair of ruptured gastric ulcer. He has continued to progress well. He did have increased output from his SOHA drains on 01/03 and then normalized. Patient seen and examined at bedside.abdominal pain is getting better every day. Yesterday he started passing flatus and having watery bowel movement. no chest pain or shortness of breath General:non toxic, no distress, appears at stated age Derm: warm, dry Head: atraumatic, normocephalic, symmetric Eyes: EOMI, no lid lag, anicteric sclera Mouth: no lip lesion, mucus membranes moist Cardiovascular: S1S2 tachy, no murmur, positive posterior tibial pulse bilater al, Lungs: CTA bilateral, no rhonchi, no rales , no accessory muscle use Abdominal: soft, +tender to palpation diffusely, no guarding, no appreciable organomegaly, SOHA drain in place with sanguaneous drainage Ext: no gross muscle atrophy, no edema, no contractures Neuro: CN II-XI grossly intact, no focal neuro deficits Psych: Alert, oriented, appropriate affect Perforated gastric ulcer resulting in peritonitis, history of peptic ulcer disease and GERD s/p surgical repair Chronic gallbladder dysfunction s/p cholecystectomy Intractable Pain -Surgery recommendations: NPO, NGT, PICC and TPN -IV PPI -Patient should not take aspirin or Mobic on discharge - pain control - rocephin and flagyl with peritonitits D# 12/10, will discontinue Tachycardia, sinus -Has not responded to IV fluid for bolus -Has not responded to increased pain control -Concerns for continued tachycardia of greater than 100 in patient at age of 75. Metoprolol 5 mg every 6 hours when necessary for heart rate greater than 125. - denies alcohol use - Likely pain mediated, encourage pain control - tele Hypokalemia, resolved Hypophosphatemia, resolved Lactic acidosis secondary to above, resolved Chronic: History of prostate cancer Migraines History of Kidney stones Thank you for allowing us to participate in the care of this pleasant patient. Do not hesitate to contact us with questions. Someone can be reached from the [facility] hospitalist group all hours of the day at [phone] or via [employer]. Objective - Vital Signs Vital signs: Vital Signs Temp 98 F 01/05/21 09:42 Pulse 58 L 01/05/21 09:42 Resp 16 01/05/21 09:42 BP 135/73 01/05/21 09:42 Pulse Ox 98 01/05/21 09:42 Intake & Output 01/04/21 01/05/21 01/05/21 18:59 06:59 18:59 Intake Total 1026 0 Output Total 795 602 481 Balance 975 -973 -775 Weight 61 kg 61 kg Intake: Intake, IV Titration 1026 Amount Mvi, Adult No.4 with Vit 1026 K 10 ml Trace (Conc-1Ml/ Dose) 1 ml Potassium Chloride 30 meq In Amino Acid 5%-D15w+Lytes*E* 1, 000 ml @ 70 mls/hr IV .BY DURATION [facility] Rx#: [id number] Oral 0 0 Output: Drainage 290 52 30 Anterior Abdomen 290 52 30 Urine 500 550 450 Stool 0 0 Urine/Stool Mix 1 Other: Voiding Method Urinal Urinal Urinal # Voids 2 1 # Bowel Movements 1 1 - Labs CBC & Chem 7: 01/05/21 07:27 01/05/21 07:27 Labs: Abnormal Lab Results - Last 24 Hours (Table) 01/04/21 01/04/21 01/04/21 Range/Units 16:39 20:31 23:08 RBC (4.30-5.90) m/uL Carbon Dioxide (22-30) mmol/L Creatinine (0.66-1.25) mg/dL Glucose (74-99) mg/dL POC Glucose (mg/dL) 144 H 121 H 128 H (75-99) mg/dL 01/05/21 01/05/21 01/05/21 Range/Units 06:14 07:27 07:27 RBC 4.07 L (4.30-5.90) m/uL Carbon Dioxide 32 H (22-30) mmol/L Creatinine 0.48 L (0.66-1.25) mg/dL Glucose 149 H (74-99) mg/dL POC Glucose (mg/dL) 130 H (75-99) mg/dL 01/05/21 Range/Units 10:38 RBC (4.30-5.90) m/uL Carbon Dioxide (22-30) mmol/L Creatinine (0.66-1.25) mg/dL Glucose (74-99) mg/dL POC Glucose (mg/dL) 133 H (75-99) mg/dL
--- NOTE | 2021-01-05 14:43 | P.PN ---
Progress Note - Text Progress Note Date: 01/05/21 Patient feels better. He's had 4 bowel movements this morning. He has limited output through his NG tube. On exam vital signs are stable. Abdomen soft. Incision is clean dry tach. Status post repair of perforated gastric ulcer. Patient will have his nasogastric tube removed. We'll start on clear liquids.
--- NOTE | 2021-01-05 15:29 | CDI ---
Documentation Clarification Form Date: 01/05/2021 03:16:00 PM From: Zoya ShannonJONNY gruber, CCDS Admit Date: 12/28/2020 07:54:00 PM Patient Name: Shan Mehta Visit Number: [id number] Discharge Date: ATTENTION: The Clinical Documentation Specialists (CDI) and [facility] Coding Staff appreciate your assistance in clarifying documentation. Please respond to the clarification below the line at the bottom and electronically sign. The CDI & [facility] Coding staff will review the response and follow-up if needed. Please note: Queries are made part of the Legal Health Record. If you have any questions, please contact the author of this message via ITS. Dr. Vince Johnson: The patient presented with the following clinical indicators: Acute Abdomen is the ED Clinical Impression, Heart Rate 73 - 105 & BP 120/85 - 86/59 on admission. WBC wnl but Lactic Acid elevated: 2.2. Additional clarification regarding the etiology/cause of the clinical indicators is requested. History/Risk Factors per the 12/28 ED Note: Prostate Cancer, GERD, OA, Migraines, Peptic Ulcer Disease, Kidney Stones, Hypoglycemia and previous Hernia Repair. Clinical Indicators: Presented to the ED on 12/28 with Abdominal & Shoulder pain, pain feels like previous kidney stones. ED Clinical Impression: Acute Abdomen 12/28 VS: T 98.1, P 73 - 94 - 105; R 16 - 24, BP 120/85 - 86/59, PO 98 RA - 90 2Lnc 12/28 LAB: WBC 6.7, Neut 65, Lymph 27, Cl 108, BUN 30, Glucose 142, Lactic Acid 2.2 - 1.5 12/28 UA: Clear, 1+ protein, Small blood, RBC 26, WBC 1 12/28 Blood cultures x2 (Final): negative after 144 hours Treatment 12/28: IV fl Na Cl 500 mls @ 999 mls/hr q31M, IV Toradol 15 mg x1, IV Fentanyl 50 mcg x2, IV Morphine 4 mg x1, IV Rocephin 50 mls @ 100 mls/hr x1, IV Flagyl 100 mls @ 100 mls/hr x1, IV Zofran. 12/29 Procedure: Exploratory laparotomy with modified Durga patch repair of gastric ulcer, Repair of Incarcerated Incisional Hernia. Cholecystectomy. 01/01 PICC line placed for TPN therapy. In your professional opinion, please clarify if these findings signify one of the following conditions: [ x] Sepsis POA [ ] Sepsis, Not POA [ ] Other, please specify [ ] Unable to determine (Template Last Reviewed: July 2020) MTDD
[2021-01-05 16:09] LABS: Glucose,Whole Blood 128 mg/dL (75-99)
[2021-01-05] MEDS: FAT EMULSION 20% 250 ML in EMPTY BAG 1 BAG IV SCH (17:11)
[2021-01-05] MEDS: 1: MVI, ADULT NO.4 WITH VIT K 10 ML, TRACE (CONC-1ML/DOSE) 1 ML, POTASSIUM CHLORIDE 20 M IV SCH ×4 (20:01)
[2021-01-05 23:01] LABS: Glucose,Whole Blood 106 mg/dL (75-99)
[2021-01-06] MEDS: HYDROmorphone 1 MG/ML 1 ML SYRINGE IVP PRN ×6 (03:04→20:14)
[2021-01-06 06:20] LABS: Glucose,Whole Blood 131 mg/dL (75-99)
[2021-01-06] MEDS: INSULIN ASPART (NovoLOG) 100 UNIT/ML VIAL SQ SCH ×3 (06:26→18:13)
[2021-01-06 08:03] LABS: Basophils % (A) 0 %; Eosinophils # (A) 0.2 k/uL (0-0.7); Eosinophils % (A) 4 %; HGB 13.2 gm/dL (13.0-17.5); Lymphocytes # (A) 0.7 k/uL (1.0-4.8); Lymphocytes % (A) 10 %; MCH 31.4 pg (25.0-35.0); MCHC 32.2 g/dL (31.0-37.0); MCV 97.6 fL (80.0-100.0); Monocytes # (A) 0.3 k/uL (0-1.0); Monocytes % (A) 4 %; Neutrophils # (A) 5.5 k/uL (1.3-7.7); Neutrophils % (A) 81 %; Platelet Count 344 k/uL (150-450); RDW 12.4 % (11.5-15.5); WBC 6.8 k/uL (3.8-10.6)
[2021-01-06 08:18] LABS: ALT 24 U/L (4-49); AST 26 U/L (17-59); African American GFR (CKD) >90 (>60 ml/min/1.73 sqM); Albumin 2.4 g/dL (3.5-5.0); Alkaline Phosphatase 152 U/L (38-126); Anion Gap 5 mmol/L; Blood Urea Nitrogen 19 mg/dL (9-20); Calcium 8.6 mg/dL (8.4-10.2); Carbon Dioxide 30 mmol/L (22-30); Chloride 103 mmol/L (98-107); Glucose 139 mg/dL (74-99); Magnesium 1.9 mg/dL (1.6-2.3); Non-African American GFR(CKD) >90 (>60 ml/min/1.73 sqM); Phosphorus 3.8 mg/dL (2.5-4.5); Potassium 4.2 mmol/L (3.5-5.1); Sodium 138 mmol/L (137-145); Total Bilirubin 0.6 mg/dL (0.2-1.3); Total Protein 4.9 g/dL (6.3-8.2)
[2021-01-06] MEDS: PANTOPRAZOLE 40 MG/10 ML VIAL IVP SCH ×2 (08:54→20:14)
[2021-01-06] MEDS: HEPARIN SODIUM,PORCINE/PF 5,000 UNIT/0.5 ML SYRINGE SQ SCH ×2 (08:54→18:13)
[2021-01-06] MEDS: METOPROLOL TARTRATE 5 MG/5 ML VIAL IVP PRN (08:58)
[2021-01-06 11:55] LABS: Glucose,Whole Blood 117 mg/dL (75-99)
[2021-01-06] MEDS: 1: MVI, ADULT NO.4 WITH VIT K 10 ML, TRACE (CONC-1ML/DOSE) 1 ML, POTASSIUM CHLORIDE 20 M IV SCH ×4 (12:39)
[2021-01-06] MEDS: MAGNESIUM SULFATE-D5W PMX 1 GM in DEXTROSE/WATER 1 100ML.BAG IVPB SCH ×2 (12:40→14:30)
[2021-01-06] MEDS: ONDANSETRON 4 MG/2 ML VIAL IVP PRN ×2 (12:40→20:14)
--- NOTE | 2021-01-06 13:47 | P.PN ---
Subjective Progress Note Date: 01/06/21 CHIEF COMPLAINT: Abdominal pain HISTORY OF PRESENT ILLNESS: Patient is status post exploratory laparotomy with modified Durga patch repair of gastric ulcer, cholecystectomy and repair of incarcerated incisional hernia on 12/29/20. Patient is sitting up at bedside chair. He is having some nausea today. He has been having bowel movements and flatus. He reports decreased abdominal pain. Afebrile. Mild tachycardia. Currently on a clear liquid diet. He also has TPN. SOHA drains with sanguinous output. Patient has minimal oral intake PHYSICAL EXAM: VITAL SIGNS: Reviewed. GENERAL: Well-developed in no acute distress. HEENT: No sclera icterus. Extraocular movements grossly intact. Moist buccal mucosa. Head is atraumatic, normocephalic. ABDOMEN: Soft. Nondistended. Incisional dressing clean dry and intact NEUROLOGIC: Alert and oriented. Cranial nerves II through XII grossly intact. ASSESSMENT: 1. Perforated gastric ulcer, incisional hernia and cholecystitis status post exploratory laparotomy with modified Durga patch repair of gastric ulcer, cholecystectomy and repair of incarcerated incisional hernia. 2. Daily NSAID use likely a contributing factor to patient's perforated gastric ulcer PLAN: -Advance diet to full liquids -Continue TPN for nutrition support -Encourage patient to ambulate -Encourage patient to use incentive spirometer -Continue pain medication and antiemetics as needed -GI prophylaxis Protonix and DVT prophylaxis subcu heparin Physician Psychologist Chief note has been reviewed by physician. Signing provider agrees with the documented findings, assessment, and plan of care. Objective - Vital Signs Vital signs: Vital Signs Temp 97.5 F L 01/06/21 08:00 Pulse 120 H 01/06/21 08:00 Resp 16 01/06/21 03:31 BP 130/76 01/06/21 08:00 Pulse Ox 93 L 01/06/21 08:00 Intake & Output 01/05/21 01/06/21 01/06/21 18:59 06:59 18:59 Intake Total 240 240 150 Output Total 1001 1596 900 Balance -756 -3482 -750 Weight 61 kg 59.5 kg Intake: Oral 240 240 150 Output: Drainage 50 21 Anterior Abdomen 50 21 Urine 950 1575 900 Stool 0 Urine/Stool Mix 1 Other: Voiding Method Urinal Urinal Urinal # Voids 1 1 # Bowel Movements 1 - Labs CBC & Chem 7: 01/06/21 07:37 01/06/21 07:37 Labs: Abnormal Lab Results - Last 24 Hours (Table) 01/05/21 01/05/21 01/06/21 Range/Units 16:07 22:59 06:13 RBC (4.30-5.90) m/uL Lymphocytes # (1.0-4.8) k/uL Creatinine (0.66-1.25) mg/dL Glucose (74-99) mg/dL POC Glucose (mg/dL) 128 H 106 H 131 H (75-99) mg/dL Alkaline Phosphatase (38-126) U/L Total Protein (6.3-8.2) g/dL Albumin (3.5-5.0) g/dL 01/06/21 01/06/21 01/06/21 Range/Units 07:37 07:37 11:53 RBC 4.20 L (4.30-5.90) m/uL Lymphocytes # 0.7 L (1.0-4.8) k/uL Creatinine 0.48 L (0.66-1.25) mg/dL Glucose 139 H (74-99) mg/dL POC Glucose (mg/dL) 117 H (75-99) mg/dL Alkaline Phosphatase 152 H (38-126) U/L Total Protein 4.9 L (6.3-8.2) g/dL Albumin 2.4 L (3.5-5.0) g/dL
--- NOTE | 2021-01-06 15:43 | P.PN ---
Subjective Progress Note Date: 01/06/21 Patient was seen and evaluated by me this morning. He is doing fairly well. His pain is tolerable. His having difficulty with liquids. He denies any nausea or vomiting. Objective - Vital Signs Vital signs: Vital Signs Temp 97.5 F L 01/06/21 08:00 Pulse 97 01/06/21 12:00 Resp 16 01/06/21 03:31 BP 130/76 01/06/21 08:00 Pulse Ox 95 01/06/21 12:00 Intake & Output 01/05/21 01/06/21 01/06/21 18:59 06:59 18:59 Intake Total 240 240 150 Output Total 1001 1596 900 Balance -761 -6574 -750 Weight 61 kg 59.5 kg Intake: Oral 240 240 150 Output: Drainage 50 21 Anterior Abdomen 50 21 Urine 950 1575 900 Stool 0 Urine/Stool Mix 1 Other: Voiding Method Urinal Urinal Urinal # Voids 1 1 # Bowel Movements 1 - Exam General: The patient is awake and alert, in no distress Eye: there is normal conjunctiva bilaterally. Neck: The neck is supple, there is no JVD. Cardiovascular: Normal S1-S2, no S3-S4, no murmurs. Respiratory: Lungs clear to auscultation bilaterally Gastrointestinal: Abdomen is soft, nontender Musculoskeletal: There is no pedal edema. Neurological:. Speech is normal. Skin: Skin is warm and dry - Labs CBC & Chem 7: 01/06/21 07:37 01/06/21 07:37 Labs: Abnormal Lab Results - Last 24 Hours (Table) 01/05/21 01/05/21 01/06/21 Range/Units 16:07 22:59 06:13 RBC (4.30-5.90) m/uL Lymphocytes # (1.0-4.8) k/uL Creatinine (0.66-1.25) mg/dL Glucose (74-99) mg/dL POC Glucose (mg/dL) 128 H 106 H 131 H (75-99) mg/dL Alkaline Phosphatase (38-126) U/L Total Protein (6.3-8.2) g/dL Albumin (3.5-5.0) g/dL 01/06/21 01/06/21 01/06/21 Range/Units 07:37 07:37 11:53 RBC 4.20 L (4.30-5.90) m/uL Lymphocytes # 0.7 L (1.0-4.8) k/uL Creatinine 0.48 L (0.66-1.25) mg/dL Glucose 139 H (74-99) mg/dL POC Glucose (mg/dL) 117 H (75-99) mg/dL Alkaline Phosphatase 152 H (38-126) U/L Total Protein 4.9 L (6.3-8.2) g/dL Albumin 2.4 L (3.5-5.0) g/dL Assessment and Plan Assessment: Patient is a 75-year-old male with a history of known peptic ulcer disease, GERD, kidney stones, and prior episodes of hypoglycemia who presented to the hospital with complaints of sudden onset sharp abdominal pain. On arrival to the ER his vital signs are normal limits. In the abdomen and pelvis was done which showed a moderate amount of intraperitoneal free air with free intraperitoneal fluid and air bubbles at the elisha hepatis and upper abdomen, perforation stomach or duodenum. Possible, he was also found have L3 4 and L4 5 spinal stenosis, bibasilar pulmonary infiltrates and atelectasis. Laboratory analysis was essentially within normal limits. He was taken for surgical repair of ruptured gastric ulcer. He has continued to progress well. He did have increased output from his SOHA drains on 01/03 and then normalized. Perforated gastric ulcer resulting in peritonitis, history of peptic ulcer disease and GERD s/p surgical repair Chronic gallbladder dysfunction s/p cholecystectomy Intractable Pain -Surgery recommendations -IV PPI -Patient should not take aspirin or Mobic on discharge - pain control - Finished rocephin and flagyl course Tachycardia, sinus, improved Hypokalemia, resolved Hypophosphatemia, resolved Lactic acidosis secondary to above, resolved Chronic: History of prostate cancer Migraines History of Kidney stones
[2021-01-06] MEDS: METOCLOPRAMIDE 5 MG/ML 2 ML VIAL IVP PRN (16:23)
[2021-01-06] MEDS: FAT EMULSION 20% 250 ML in EMPTY BAG 1 BAG IV SCH (18:13)
[2021-01-06 18:15] LABS: Glucose,Whole Blood 119 mg/dL (75-99)
[2021-01-07 00:10] LABS: Glucose,Whole Blood 87 mg/dL (75-99)
[2021-01-07] MEDS: METOCLOPRAMIDE 5 MG/ML 2 ML VIAL IVP PRN ×4 (00:11→20:30)
[2021-01-07] MEDS: HYDROmorphone 1 MG/ML 1 ML SYRINGE IVP PRN ×5 (00:11→20:30)
[2021-01-07] MEDS: HEPARIN SODIUM,PORCINE/PF 5,000 UNIT/0.5 ML SYRINGE SQ SCH ×3 (00:11→15:53)
[2021-01-07] MEDS: INSULIN ASPART (NovoLOG) 100 UNIT/ML VIAL SQ SCH ×4 (00:31→18:24)
[2021-01-07] MEDS: 1: MVI, ADULT NO.4 WITH VIT K 10 ML, TRACE (CONC-1ML/DOSE) 1 ML, POTASSIUM CHLORIDE 20 M IV SCH ×4 (04:01)
[2021-01-07] MEDS: ONDANSETRON 4 MG/2 ML VIAL IVP PRN ×2 (04:14→11:10)
[2021-01-07 05:59] LABS: Glucose,Whole Blood 132 mg/dL (75-99)
[2021-01-07 09:05] LABS: ALT 27 U/L (4-49); AST 28 U/L (17-59); African American GFR (CKD) >90 (>60 ml/min/1.73 sqM); Albumin 2.6 g/dL (3.5-5.0); Alkaline Phosphatase 170 U/L (38-126); Anion Gap 4 mmol/L; Blood Urea Nitrogen 22 mg/dL (9-20); Calcium 8.5 mg/dL (8.4-10.2); Carbon Dioxide 31 mmol/L (22-30); Chloride 102 mmol/L (98-107); Glucose 134 mg/dL (74-99); Magnesium 2.3 mg/dL (1.6-2.3); Non-African American GFR(CKD) >90 (>60 ml/min/1.73 sqM); Phosphorus 3.8 mg/dL (2.5-4.5); Potassium 4.5 mmol/L (3.5-5.1); Sodium 137 mmol/L (137-145); Total Bilirubin 0.5 mg/dL (0.2-1.3); Total Protein 5.1 g/dL (6.3-8.2)
[2021-01-07] MEDS: PANTOPRAZOLE 40 MG/10 ML VIAL IVP SCH ×2 (09:29→20:30)
[2021-01-07 12:27] LABS: Glucose,Whole Blood 124 mg/dL (75-99)
--- NOTE | 2021-01-07 12:37 | P.PN ---
Subjective Progress Note Date: 01/07/21 CHIEF COMPLAINT: Abdominal pain HISTORY OF PRESENT ILLNESS: Patient is status post exploratory laparotomy with modified Durga patch repair of gastric ulcer, cholecystectomy and repair of incarcerated incisional hernia on 12/29/20. Patient sitting in bed comfortably. He is still reporting abdominal pain. But does report that it's controlled. He is having bowel movements and flatus. He has been able to stand and walk small distances. Denies any vomiting. He does report some nausea. Appetite is still diminished and was only able to eat a Popsicle this morning. Afebrile. SOHA drain with sanguinous output PHYSICAL EXAM: VITAL SIGNS: Reviewed. GENERAL: Well-developed in no acute distress. HEENT: No sclera icterus. Extraocular movements grossly intact. Moist buccal mucosa. Head is atraumatic, normocephalic. ABDOMEN: Soft. Nondistended. Incisional dressing clean dry and intact NEUROLOGIC: Alert and oriented. Cranial nerves II through XII grossly intact. ASSESSMENT: 1. Perforated gastric ulcer, incisional hernia and cholecystitis status post exploratory laparotomy with modified Durga patch repair of gastric ulcer, cholecystectomy and repair of incarcerated incisional hernia. 2. Daily NSAID use likely a contributing factor to patient's perforated gastric ulcer PLAN: -Continue full liquids -Continue TPN for nutrition support -Encourage patient to ambulate -Encourage patient to use incentive spirometer -Continue pain medication and antiemetics as needed -GI prophylaxis Protonix and DVT prophylaxis subcu heparin Physician Home Health Travel Pt note has been reviewed by physician. Signing provider agrees with the documented findings, assessment, and plan of care. Objective - Vital Signs Vital signs: Vital Signs Temp 97.4 F L 01/07/21 08:00 Pulse 116 H 01/07/21 08:00 Resp 18 01/07/21 08:00 BP 102/68 01/07/21 08:00 Pulse Ox 98 01/07/21 08:38 Intake & Output 01/06/21 01/07/21 01/07/21 18:59 06:59 18:59 Intake Total 1360 240 Output Total 6597 040 2691 Balance 25 -838 -211 Weight 60.5 kg 60.5 kg Intake: Intake, IV Titration 1210 Amount Magnesium Sulfate-D5w Pmx 200 1 gm In Dextrose/Water 1 100ml.bag @ 100 mls/hr IVPB Q1H [facility] Rx#: [id number] Potassium Chloride 20 meq 1010 In Amino Acid 5%-D15w+ Lytes*E* 1,000 ml @ 70 mls/hr IV .BY DURATION [facility] Rx#:[id number] Oral 150 240 Output: Drainage 20 20 20 Anterior Abdomen 20 20 20 Urine [id number] Stool 0 Other: Voiding Method Urinal Urinal Urinal # Voids 2 - Labs CBC & Chem 7: 01/06/21 07:37 01/07/21 07:50 Labs: Abnormal Lab Results - Last 24 Hours (Table) 01/06/21 01/07/21 01/07/21 Range/Units 18:13 05:58 07:50 Carbon Dioxide 31 H (22-30) mmol/L BUN 22 H (9-20) mg/dL Creatinine 0.56 L (0.66-1.25) mg/dL Glucose 134 H (74-99) mg/dL POC Glucose (mg/dL) 119 H 132 H (75-99) mg/dL Alkaline Phosphatase 170 H (38-126) U/L Total Protein 5.1 L (6.3-8.2) g/dL Albumin 2.6 L (3.5-5.0) g/dL 01/07/21 Range/Units 12:24 Carbon Dioxide (22-30) mmol/L BUN (9-20) mg/dL Creatinine (0.66-1.25) mg/dL Glucose (74-99) mg/dL POC Glucose (mg/dL) 124 H (75-99) mg/dL Alkaline Phosphatase (38-126) U/L Total Protein (6.3-8.2) g/dL Albumin (3.5-5.0) g/dL
--- NOTE | 2021-01-07 13:37 | P.PN ---
Subjective Progress Note Date: 01/07/21 Patient is doing well today. No acute events overnight. No nausea or vomiting. Objective - Vital Signs Vital signs: Vital Signs Temp 97.4 F L 01/07/21 12:00 Pulse 123 H 01/07/21 12:00 Resp 18 01/07/21 12:00 BP 115/76 01/07/21 12:00 Pulse Ox 94 L 01/07/21 12:00 Intake & Output 01/06/21 01/07/21 01/07/21 18:59 06:59 18:59 Intake Total 1360 720 Output Total 2142 290 0705 Balance 15 520 1220 Weight 60.5 kg 60.5 kg Intake: Intake, IV Titration 1210 Amount Magnesium Sulfate-D5w Pmx 200 1 gm In Dextrose/Water 1 100ml.bag @ 100 mls/hr IVPB Q1H [facility] Rx#: [id number] Potassium Chloride 20 meq 1010 In Amino Acid 5%-D15w+ Lytes*E* 1,000 ml @ 70 mls/hr IV .BY DURATION TAMAR Rx#:[id number] Oral 150 720 Output: Drainage 20 20 40 Anterior Abdomen 20 20 40 Urine [id number] Stool 0 Other: Voiding Method Urinal Urinal Urinal # Voids 2 - Exam General: The patient is awake and alert, in no distress Eye: there is normal conjunctiva bilaterally. Neck: The neck is supple, there is no JVD. Cardiovascular: Normal S1-S2, no S3-S4, no murmurs. Respiratory: Lungs clear to auscultation bilaterally Gastrointestinal: Abdomen is soft, nontender Musculoskeletal: There is no pedal edema. Neurological:. Speech is normal. Skin: Skin is warm and dry - Labs CBC & Chem 7: 01/06/21 07:37 01/07/21 07:50 Labs: Abnormal Lab Results - Last 24 Hours (Table) 01/06/21 01/07/21 01/07/21 Range/Units 18:13 05:58 07:50 Carbon Dioxide 31 H (22-30) mmol/L BUN 22 H (9-20) mg/dL Creatinine 0.56 L (0.66-1.25) mg/dL Glucose 134 H (74-99) mg/dL POC Glucose (mg/dL) 119 H 132 H (75-99) mg/dL Alkaline Phosphatase 170 H (38-126) U/L Total Protein 5.1 L (6.3-8.2) g/dL Albumin 2.6 L (3.5-5.0) g/dL 01/07/21 Range/Units 12:24 Carbon Dioxide (22-30) mmol/L BUN (9-20) mg/dL Creatinine (0.66-1.25) mg/dL Glucose (74-99) mg/dL POC Glucose (mg/dL) 124 H (75-99) mg/dL Alkaline Phosphatase (38-126) U/L Total Protein (6.3-8.2) g/dL Albumin (3.5-5.0) g/dL Assessment and Plan Assessment: Patient is a 75-year-old male with a history of known peptic ulcer disease, GERD, kidney stones, and prior episodes of hypoglycemia who presented to the hospital with complaints of sudden onset sharp abdominal pain. On arrival to the ER his vital signs are normal limits. In the abdomen and pelvis was done which showed a moderate amount of intraperitoneal free air with free intraperitoneal fluid and air bubbles at the elisha hepatis and upper abdomen, perforation stomach or duodenum. Possible, he was also found have L3 4 and L4 5 spinal stenosis, bibasilar pulmonary infiltrates and atelectasis. Laboratory analysis was essentially within normal limits. He was taken for surgical repair of ruptured gastric ulcer. He has continued to progress well. He did have increased output from his SOHA drains on 01/03 and then normalized. Perforated gastric ulcer resulting in peritonitis, history of peptic ulcer disease and GERD s/p surgical repair Chronic gallbladder dysfunction s/p cholecystectomy Intractable Pain, improved -Surgery recommendations -IV PPI -Patient should not take aspirin or Mobic on discharge - pain control - Finished rocephin and flagyl course -Wean off TPN as patient is now on full liquid diet discussed with nursing staff Tachycardia, sinus, improved Hypokalemia, resolved Hypophosphatemia, resolved Lactic acidosis secondary to above, resolved Chronic: History of prostate cancer Migraines History of Kidney stones
[2021-01-07 17:59] LABS: Glucose,Whole Blood 123 mg/dL (75-99)
[2021-01-07] MEDS: FAT EMULSION 20% 250 ML in EMPTY BAG 1 BAG IV SCH (18:21)
[2021-01-07] MEDS: 1: MVI, ADULT NO.4 WITH VIT K 10 ML, TRACE (CONC-1ML/DOSE) 1 ML, POTASSIUM CHLORIDE 10 M IV SCH ×5 (18:22)
[2021-01-08] MEDS: HYDROmorphone 1 MG/ML 1 ML SYRINGE IVP PRN ×5 (00:20→21:12)
[2021-01-08] MEDS: HEPARIN SODIUM,PORCINE/PF 5,000 UNIT/0.5 ML SYRINGE SQ SCH ×3 (00:21→16:02)
[2021-01-08 00:25] LABS: Glucose,Whole Blood 122 mg/dL (75-99)
[2021-01-08] MEDS: ONDANSETRON 4 MG/2 ML VIAL IVP PRN (00:49)
[2021-01-08] MEDS: INSULIN ASPART (NovoLOG) 100 UNIT/ML VIAL SQ SCH ×4 (04:37→17:03)
[2021-01-08] MEDS: METOCLOPRAMIDE 5 MG/ML 2 ML VIAL IVP PRN ×3 (04:39→21:12)
[2021-01-08 06:33] LABS: Glucose,Whole Blood 110 mg/dL (75-99)
[2021-01-08 08:43] LABS: ALT 28 U/L (4-49); AST 28 U/L (17-59); African American GFR (CKD) >90 (>60 ml/min/1.73 sqM); Albumin 2.6 g/dL (3.5-5.0); Alkaline Phosphatase 162 U/L (38-126); Anion Gap 5 mmol/L; Blood Urea Nitrogen 20 mg/dL (9-20); Carbon Dioxide 32 mmol/L (22-30); Chloride 101 mmol/L (98-107); Glucose 137 mg/dL (74-99); Magnesium 2.2 mg/dL (1.6-2.3); Non-African American GFR(CKD) >90 (>60 ml/min/1.73 sqM); Phosphorus 3.6 mg/dL (2.5-4.5); Potassium 4.3 mmol/L (3.5-5.1); Sodium 138 mmol/L (137-145); Total Bilirubin 0.5 mg/dL (0.2-1.3); Total Protein 5.4 g/dL (6.3-8.2)
[2021-01-08] MEDS: PANTOPRAZOLE 40 MG/10 ML VIAL IVP SCH ×2 (09:39→21:12)
[2021-01-08] MEDS: METOPROLOL TARTRATE 25 MG TAB PO SCH ×2 (09:45→21:13)
[2021-01-08 11:43] LABS: Glucose,Whole Blood 113 mg/dL (75-99)
--- NOTE | 2021-01-08 12:47 | P.PN ---
Subjective Progress Note Date: 01/08/21 CHIEF COMPLAINT: Abdominal pain HISTORY OF PRESENT ILLNESS: Patient is status post exploratory laparotomy with modified Durga patch repair of gastric ulcer, cholecystectomy and repair of incarcerated incisional hernia on 12/29/20. Patient sitting in bed comfortably. He is still reporting lower abdominal pain. But does report that it's controlled. He is having bowel movements and flatus. He has been able to stand and walk small distances. He denies any nausea or vomiting. He was able to eat his full regular tray this morning. TPN is being weaned off. Afebrile. Still having episodes of tachycardia up into the 120s. Sodium 138 potassium 4.3 creatinine 0.53 glucose 113 PHYSICAL EXAM: VITAL SIGNS: Reviewed. GENERAL: Well-developed in no acute distress. HEENT: No sclera icterus. Extraocular movements grossly intact. Moist buccal mucosa. Head is atraumatic, normocephalic. ABDOMEN: Soft. Nondistended. Lower abdominal tenderness with palpation. Incisional dressing removed. Patient does have small blood clot at the lower portion of his abdominal incision. SOHA drain with sanguinous output. NEUROLOGIC: Alert and oriented. Cranial nerves II through XII grossly intact. ASSESSMENT: 1. Perforated gastric ulcer, incisional hernia and cholecystitis status post exploratory laparotomy with modified Durga patch repair of gastric ulcer, cholecystectomy and repair of incarcerated incisional hernia. 2. Daily NSAID use likely a contributing factor to patient's perforated gastric ulcer PLAN: -Continue regular diet -Wean patient off of TPN -Incisional dressings changed -Encourage patient to ambulate -Encourage patient to use incentive spirometer -Continue pain medication and antiemetics as needed -Patient will require ECF placement at time of discharge -GI prophylaxis Protonix and DVT prophylaxis subcu heparin Physician Auto Seat Cover Installer note has been reviewed by physician. Signing provider agrees with the documented findings, assessment, and plan of care. Objective - Vital Signs Vital signs: Vital Signs Temp 98.5 F 01/08/21 08:00 Pulse 122 H 01/08/21 08:00 Resp 16 01/08/21 08:00 BP 121/70 01/08/21 08:00 Pulse Ox 96 01/08/21 08:00 Intake & Output 01/07/21 01/08/21 01/08/21 18:59 06:59 18:59 Intake Total 1080 480 540 Output Total 2587 700 401 Balance -1507 -220 139 Weight 60.5 kg 56.5 kg Intake: Oral 1080 480 540 Output: Drainage 60 0 0 Anterior Abdomen 60 0 0 Urine 2525 700 400 Stool 2 1 Other: Voiding Method Urinal Urinal Urinal # Voids 2 # Bowel Movements 1 - Labs CBC & Chem 7: 01/06/21 07:37 01/08/21 07:54 Labs: Abnormal Lab Results - Last 24 Hours (Table) 01/07/21 01/08/21 01/08/21 Range/Units 17:58 00:23 06:11 Carbon Dioxide (22-30) mmol/L Creatinine (0.66-1.25) mg/dL Glucose (74-99) mg/dL POC Glucose (mg/dL) 123 H 122 H 110 H (75-99) mg/dL Alkaline Phosphatase (38-126) U/L Total Protein (6.3-8.2) g/dL Albumin (3.5-5.0) g/dL 01/08/21 01/08/21 Range/Units 07:54 11:42 Carbon Dioxide 32 H (22-30) mmol/L Creatinine 0.53 L (0.66-1.25) mg/dL Glucose 137 H (74-99) mg/dL POC Glucose (mg/dL) 113 H (75-99) mg/dL Alkaline Phosphatase 162 H (38-126) U/L Total Protein 5.4 L (6.3-8.2) g/dL Albumin 2.6 L (3.5-5.0) g/dL
--- NOTE | 2021-01-08 13:50 | P.PN ---
Subjective Progress Note Date: 01/08/21 Patient is doing well today. No acute events overnight. Objective - Vital Signs Vital signs: Vital Signs Temp 98.5 F 01/08/21 08:00 Pulse 122 H 01/08/21 08:00 Resp 16 01/08/21 08:00 BP 121/70 01/08/21 08:00 Pulse Ox 96 01/08/21 08:00 Intake & Output 01/07/21 01/08/21 01/08/21 18:59 06:59 18:59 Intake Total 1080 480 720 Output Total 2587 700 401 Balance -1507 -220 319 Weight 60.5 kg 56.5 kg Intake: Oral 1080 480 720 Output: Drainage 60 0 0 Anterior Abdomen 60 0 0 Urine 2525 700 400 Stool 2 1 Other: Voiding Method Urinal Urinal Urinal # Voids 2 # Bowel Movements 1 - Exam General: The patient is awake and alert, in no distress Eye: there is normal conjunctiva bilaterally. Neck: The neck is supple, there is no JVD. Cardiovascular: Normal S1-S2, no S3-S4, no murmurs. Respiratory: Lungs clear to auscultation bilaterally Gastrointestinal: Abdomen is soft, nontender Musculoskeletal: There is no pedal edema. Neurological:. Speech is normal. Skin: Skin is warm and dry - Labs CBC & Chem 7: 01/06/21 07:37 01/08/21 07:54 Labs: Abnormal Lab Results - Last 24 Hours (Table) 01/07/21 01/08/21 01/08/21 Range/Units 17:58 00:23 06:11 Carbon Dioxide (22-30) mmol/L Creatinine (0.66-1.25) mg/dL Glucose (74-99) mg/dL POC Glucose (mg/dL) 123 H 122 H 110 H (75-99) mg/dL Alkaline Phosphatase (38-126) U/L Total Protein (6.3-8.2) g/dL Albumin (3.5-5.0) g/dL 01/08/21 01/08/21 Range/Units 07:54 11:42 Carbon Dioxide 32 H (22-30) mmol/L Creatinine 0.53 L (0.66-1.25) mg/dL Glucose 137 H (74-99) mg/dL POC Glucose (mg/dL) 113 H (75-99) mg/dL Alkaline Phosphatase 162 H (38-126) U/L Total Protein 5.4 L (6.3-8.2) g/dL Albumin 2.6 L (3.5-5.0) g/dL Assessment and Plan Assessment: Patient is a 75-year-old male with a history of known peptic ulcer disease, GERD, kidney stones, and prior episodes of hypoglycemia who presented to the hospital with complaints of sudden onset sharp abdominal pain. On arrival to the ER his vital signs are normal limits. In the abdomen and pelvis was done which showed a moderate amount of intraperitoneal free air with free intraperitoneal fluid and air bubbles at the elisha hepatis and upper abdomen, perforation stomach or duodenum. Possible, he was also found have L3 4 and L4 5 spinal stenosis, bibasilar pulmonary infiltrates and atelectasis. Laboratory analysis was essentially within normal limits. He was taken for surgical repair of ruptured gastric ulcer. He has continued to progress well. He did have in creased output from his SOHA drains on 01/03 and then normalized. Perforated gastric ulcer resulting in peritonitis, history of peptic ulcer disease and GERD s/p Durga patch repair Chronic gallbladder dysfunction s/p cholecystectomy Intractable Pain, improved -Surgery recommendations -IV PPI -Patient should not take aspirin or Mobic on discharge - pain control - Finished rocephin and flagyl course -T10 discontinued Tachycardia, sinus, improved Hypokalemia, resolved Hypophosphatemia, resolved Lactic acidosis secondary to above, resolved Chronic: History of prostate cancer Migraines History of Kidney stones Discharge planning to rehab per surgery
[2021-01-08 16:44] LABS: Glucose,Whole Blood 129 mg/dL (75-99)
[2021-01-08] MEDS: 1: MVI, ADULT NO.4 WITH VIT K 10 ML, TRACE (CONC-1ML/DOSE) 1 ML, POTASSIUM CHLORIDE 10 M IV SCH ×5 (20:19)
[2021-01-08 21:11] LABS: Glucose,Whole Blood 105 mg/dL (75-99)
[2021-01-09] MEDS: INSULIN ASPART (NovoLOG) 100 UNIT/ML VIAL SQ SCH ×4 (01:55→16:38)
[2021-01-09] MEDS: HEPARIN SODIUM,PORCINE/PF 5,000 UNIT/0.5 ML SYRINGE SQ SCH ×4 (02:07→23:10)
[2021-01-09] MEDS: HYDROcodone/APAP 5-325MG 1 EACH TAB PO PRN ×4 (02:08→23:10)
[2021-01-09] MEDS: PANTOPRAZOLE 40 MG/10 ML VIAL IVP SCH ×2 (08:42→20:12)
[2021-01-09] MEDS: METOPROLOL TARTRATE 25 MG TAB PO SCH ×2 (08:42→20:12)
[2021-01-09 08:52] LABS: ALT 28 U/L (4-49); AST 25 U/L (17-59); African American GFR (CKD) >90 (>60 ml/min/1.73 sqM); Alkaline Phosphatase 173 U/L (38-126); Anion Gap 6 mmol/L; Blood Urea Nitrogen 22 mg/dL (9-20); Calcium 9.5 mg/dL (8.4-10.2); Carbon Dioxide 34 mmol/L (22-30); Chloride 99 mmol/L (98-107); Glucose 100 mg/dL (74-99); Magnesium 2.2 mg/dL (1.6-2.3); Non-African American GFR(CKD) >90 (>60 ml/min/1.73 sqM); Phosphorus 4.2 mg/dL (2.5-4.5); Potassium 4.3 mmol/L (3.5-5.1); Sodium 139 mmol/L (137-145); Total Bilirubin 0.6 mg/dL (0.2-1.3); Total Protein 5.8 g/dL (6.3-8.2)
[2021-01-09 10:35] VITALS: BMI 17.3
--- NOTE | 2021-01-09 12:18 | P.DS ---
Providers Date of admission: 12/28/20 19:54 Expected date of discharge: 01/09/21 Attending physician: Vince Johnson Consults: 12/29/20 09:11 Consult Physician Routine Consulting Provider: Zoey Koch Consult Reason/Comments: medical management Do you want consulting provider notified?: Yes Primary care physician: Zacarias Lay MD Hospital Course: Patient is a 75-year-old male with a history of known peptic ulcer disease, GERD, kidney stones, and prior episodes of hypoglycemia who presented to the hospital with complaints of sudden onset sharp abdominal pain. On arrival to the ER his vital signs are normal limits. In the abdomen and pelvis was done which showed a moderate amount of intraperitoneal free air with free intraperitoneal fluid and air bubbles at the elisha hepatis and upper abdomen, perforation stomach or duodenum. He was taken for surgical repair of ruptured gastric ulcer. He has continued to progress well. Perforated gastric ulcer resulting in peritonitis, history of peptic ulcer disease and GERD s/p Durga patch repair Chronic gallbladder dysfunction s/p cholecystectomy Intractable Pain, improved -Surgery recommendations -PPI -Patient should not take aspirin or Mobic on discharge - pain control - Finished rocephin and flagyl course -TPN discontinued Tachycardia, sinus, improved Hypokalemia, resolved Hypophosphatemia, resolved Lactic acidosis secondary to above, resolved Chronic: History of prostate cancer Migraines History of Kidney stones Patient was seen and evaluated by me on the day of discharge. He denies any abd ominal pain. Surgical incision wound covered with clean/dry dressing. Patient will be discharged to ECF in a stable condition. Patient Condition at Discharge: Fair Plan - Discharge Summary Discharge Rx Participant: No New Discharge Prescriptions: New Metoprolol Tartrate [Lopressor] 25 mg PO BID #30 tab Pantoprazole [Protonix] 0 mg PO BID #60 tablet. Continue Multivitamins, Thera [Multivitamin (formulary)] 1 tab PO DAILY Discontinued [id number] [Excedrin] 1 tab PO Q6HR PRN PRN Reason: Migraine Headache Meloxicam [Mobic] 15 mg PO DAILY Esomeprazole Magnesium [NexIUM 24Hr] 20 mg PO DAILY Triamcinolone 0.1% Cream [Kenalog 0.1% Cream] 1 applic TOPICAL BID PRN PRN Reason: Rash Discharge Medication List Multivitamins, Thera [Multivitamin (formulary)] 1 tab PO DAILY 08/07/19 [History] Metoprolol Tartrate [Lopressor] 25 mg PO BID #30 tab 01/09/21 [Rx] Pantoprazole [Protonix] 0 mg PO BID #60 tablet. 01/09/21 [Rx] Follow up Appointment(s)/Referral(s): [facility], [NON-STAFF] - As Needed Zacarias Lay MD [Primary Care Provider] - 1-2 days Vince Johnson MD [STAFF PHYSICIAN] - 1 Week Discharge Disposition: TRANSFER TO SNF/ECF
--- NOTE | 2021-01-09 14:40 | P.DS ---
Providers Date of admission: 12/28/20 19:54 Expected date of discharge: 01/09/21 Attending physician: Vince Johnson Consults: 12/29/20 09:11 Consult Physician Routine Consulting Provider: Zoey Koch Consult Reason/Comments: medical management Do you want consulting provider notified?: Yes Primary care physician: Zacarias Lay MD Hospital Course: Discharge diagnosis 1. Perforated gastric ulcer, incisional hernia and cholecystitis status post exploratory laparotomy with modified Durga patch repair of gastric ulcer, cholecystectomy and repair of incarcerated incisional hernia. 2. Daily NSAID use likely a contributing factor to patient's perforated gastric ulcer Hospital course This is a 75-year-old male with a known history of peptic ulcer disease with pr ior bleeding ulcers. Last stomach ulcer was about 2 years ago. He does take Mobic daily for his arthritis pain. Patient presented to the hospital with complaints of sharp upper abdominal pain and pain radiating to the left flank. He had CT of the chest CTA of abdomen and pelvis showing moderate amount of intraperitoneal free air. There is also free intraperitoneal fluid. There are air bubbles at the elisha hepatis upper abdomen and also probably in the lesser sac. Perforation from stomach or duodenum is possible. Patient is status post exploratory laparotomy with modified Durga patch repair of gastric ulcer, cholecystectomy and repair of incarcerated incisional hernia. Patient is tolerating diet. He is having bowel movements and flatus. He is afebrile. He has been up and ambulating. He is stable for discharge. His incision site is clean dry and intact. Please refer to chart for any further details. Physician Developer Designer note has been reviewed by physician. Signing provider agrees with the documented findings, assessment, and plan of care. Patient Condition at Discharge: Stable Plan - Discharge Summary Discharge Rx Participant: No New Discharge Prescriptions: New Metoprolol Tartrate [Lopressor] 25 mg PO BID #30 tab Pantoprazole [Protonix] 0 mg PO BID #60 tablet. HYDROcodone/APAP 5-325MG [[place] 5-325] 1 tab PO Q6HR PRN 3 Days #12 tab PRN Reason: Pain Continue Multivitamins, Thera [Multivitamin (formulary)] 1 tab PO DAILY Discontinued [id number] [Excedrin] 1 tab PO Q6HR PRN PRN Reason: Migraine Headache Meloxicam [Mobic] 15 mg PO DAILY Esomeprazole Magnesium [NexIUM 24Hr] 20 mg PO DAILY Triamcinolone 0.1% Cream [Kenalog 0.1% Cream] 1 applic TOPICAL BID PRN PRN Reason: Rash Discharge Medication List Multivitamins, Thera [Multivitamin (formulary)] 1 tab PO DAILY 08/07/19 [History] HYDROcodone/APAP 5-325MG [[place] 5-325] 1 tab PO Q6HR PRN 3 Days #12 tab 01/09/21 [Rx] Metoprolol Tartrate [Lopressor] 25 mg PO BID #30 tab 01/09/21 [Rx] Pantoprazole [Protonix] 0 mg PO BID #60 tablet. 01/09/21 [Rx] Follow up Appointment(s)/Referral(s): [facility], [NON-STAFF] - As Needed Zacarias Lay MD [Primary Care Provider] - 1-2 days Vince Johnson MD [STAFF PHYSICIAN] - 1 Week Activity/Diet/Wound Care/Special Instructions: No driving while taking [place] No lifting over 10 pounds You may shower. No soaking or tub baths for 2 weeks Very light activity until you are reevaluated at your follow up appointment with your surgeon Discharge Disposition: TRANSFER TO SNF/ECF
[2021-01-10] MEDS: HYDROcodone/APAP 5-325MG 1 EACH TAB PO PRN ×3 (05:10→17:14)
[2021-01-10 08:16] LABS: ALT 22 U/L (4-49); AST 21 U/L (17-59); African American GFR (CKD) >90 (>60 ml/min/1.73 sqM); Albumin 2.8 g/dL (3.5-5.0); Alkaline Phosphatase 165 U/L (38-126); Anion Gap 5 mmol/L; Blood Urea Nitrogen 25 mg/dL (9-20); Calcium 9.2 mg/dL (8.4-10.2); Carbon Dioxide 34 mmol/L (22-30); Chloride 99 mmol/L (98-107); Glucose 110 mg/dL (74-99); Magnesium 2.2 mg/dL (1.6-2.3); Non-African American GFR(CKD) 89 (>60 ml/min/1.73 sqM); Phosphorus 4.2 mg/dL (2.5-4.5); Potassium 4.3 mmol/L (3.5-5.1); Sodium 138 mmol/L (137-145); Total Bilirubin 0.6 mg/dL (0.2-1.3); Total Protein 5.7 g/dL (6.3-8.2)
[2021-01-10] MEDS: HEPARIN SODIUM,PORCINE/PF 5,000 UNIT/0.5 ML SYRINGE SQ SCH ×2 (09:01→17:14)
[2021-01-10] MEDS: PANTOPRAZOLE 40 MG/10 ML VIAL IVP SCH ×2 (09:01→22:02)
[2021-01-10] MEDS: METOPROLOL TARTRATE 25 MG TAB PO SCH ×2 (09:01→22:02)
[2021-01-10] MEDS ORDERED: LACTULOSE 20 GM/30 ML CUP PO ONE (16:22)
--- NOTE | 2021-01-10 16:22 | P.PN ---
Subjective Progress Note Date: 01/10/21 CHIEF COMPLAINT: Perforated gastric ulcer HISTORY OF PRESENT ILLNESS: The patient is a 75-year-old male status post Durga patch repair for perforated gastric ulcer, 12/29/2020. He is tolerating diet. "I have problems with my hemorrhoids." Nurses report he has not a bowel movement in 3 days. ROS: No reports of nausea and vomiting. No bowel movements. No fevers or chills. No new chest pain. No productive sputum PHYSICAL EXAM: VITAL SIGNS: Reviewed CONSTITUTIONAL: Well developed and in no acute distress. EYES: Conjuctivae without sclera icterus. Extraocular movements grossly intact. HEAD, EARS, NOSE, THROAT: Moist buccal mucosa. Head is atraumatic, normocephalic. Hears conversational speech. No nasal drainage. NECK: Supple. No thyroidomegaly. RESPIRATORY: Non-labored respirations and equal bilateral excursions. CARDIOVASCULAR: Palpable 2+ radial pulses. Regular rate. Regular rhythm. ABDOMEN: Dressing intact. MUSCULOSKELETAL: No gross deformity of the lower extremities noted. No clubbing. No cyanosis. SKIN: Good skin turgor. Well perfused. NEUROLOGIC: Cranial nerves II through XII grossly intact. No focal or lateralizing signs. PSYCH: Appropriate affect. Alert and oriented to person, place and time. CLINICAL LABS: White blood cell count normal at 6.8 on last blood draw. ASSESSMENT: 1. Acute perforated gastric ulcer. 2. Complicated hemorrhoids 3. Constipation PLAN: 1. He reports a new problem of hemorrhoids and has constipation 2. Will add sitz bath and laxatives. Objective - Vital Signs Vital signs: Vital Signs Temp 98.5 F 01/10/21 07:15 Pulse 99 01/10/21 07:15 Resp 15 01/10/21 07:15 BP 106/71 01/10/21 07:15 Pulse Ox 96 01/10/21 07:15 Intake & Output 01/09/21 01/10/21 01/10/21 18:59 06:59 18:59 Intake Total 480 Output Total 10 600 200 Balance 470 -600 -200 Weight 56.3 kg 54.5 kg Intake: Oral 480 Output: Drainage 10 Anterior Abdomen 10 Urine 0 600 200 Stool 0 Other: Voiding Method Urinal Urinal Urinal # Voids 0 1 # Bowel Movements 0 - Labs CBC & Chem 7: 01/06/21 07:37 01/10/21 07:41 Labs: Abnormal Lab Results - Last 24 Hours (Table) 01/10/21 Range/Units 07:41 Carbon Dioxide 34 H (22-30) mmol/L BUN 25 H (9-20) mg/dL Glucose 110 H (74-99) mg/dL Alkaline Phosphatase 165 H (38-126) U/L Total Protein 5.7 L (6.3-8.2) g/dL Albumin 2.8 L (3.5-5.0) g/dL
[2021-01-10] MEDS ORDERED: MAGNESIUM HYDROXIDE 2,400 MG/10 ML CUP PO ONE (17:00)
[2021-01-10] MEDS: DOCUSATE 100 MG CAP PO SCH (21:31)
[2021-01-11] MEDS: HEPARIN SODIUM,PORCINE/PF 5,000 UNIT/0.5 ML SYRINGE SQ SCH ×4 (00:28→22:51)
[2021-01-11 07:30] LABS: ALT 32 U/L (4-49); AST 36 U/L (17-59); African American GFR (CKD) >90 (>60 ml/min/1.73 sqM); Alkaline Phosphatase 216 U/L (38-126); Anion Gap 4 mmol/L; Blood Urea Nitrogen 28 mg/dL (9-20); Calcium 9.4 mg/dL (8.4-10.2); Carbon Dioxide 35 mmol/L (22-30); Chloride 99 mmol/L (98-107); Globulin 2.9 g/dL; Glucose 111 mg/dL (74-99); Magnesium 2.5 mg/dL (1.6-2.3); Non-African American GFR(CKD) 82 (>60 ml/min/1.73 sqM); Phosphorus 3.5 mg/dL (2.5-4.5); Potassium 4.4 mmol/L (3.5-5.1); Sodium 138 mmol/L (137-145); Total Bilirubin 0.5 mg/dL (0.2-1.3); Total Protein 5.9 g/dL (6.3-8.2)
[2021-01-11] MEDS: METOPROLOL TARTRATE 25 MG TAB PO SCH ×2 (07:41→20:28)
[2021-01-11] MEDS: DOCUSATE 100 MG CAP PO SCH ×2 (07:41→19:04)
[2021-01-11] MEDS: HYDROcodone/APAP 5-325MG 1 EACH TAB PO PRN ×3 (07:41→22:51)
[2021-01-11] MEDS: PANTOPRAZOLE 40 MG/10 ML VIAL IVP SCH ×2 (07:42→20:29)
--- NOTE | 2021-01-11 16:10 | P.PN ---
Subjective Progress Note Date: 01/11/21 CHIEF COMPLAINT: Perforated gastric ulcer HISTORY OF PRESENT ILLNESS: The patient is a 75-year-old male status post Durga patch repair for perforated gastric ulcer, 12/29/2020. He had moderate bowel movements for constipation. He is getting sitz baths for his hemorrhoids. ROS: No reports of nausea and vomiting. No fevers or chills. No new chest pain. No productive sputum PHYSICAL EXAM: VITAL SIGNS: Reviewed CONSTITUTIONAL: Well developed and in no acute distress. EYES: Conjuctivae without sclera icterus. Extraocular movements grossly intact. HEAD, EARS, NOSE, THROAT: Moist buccal mucosa. Head is atraumatic, normocephalic. Hears conversational speech. No nasal drainage. NECK: Supple. No thyroidomegaly. RESPIRATORY: Non-labored respirations and equal bilateral excursions. CARDIOVASCULAR: Palpable 2+ radial pulses. Regular rate. Regular rhythm. ABDOMEN: Dressing intact. MUSCULOSKELETAL: No gross deformity of the lower extremities noted. No clubbing. No cyanosis. SKIN: Good skin turgor. Well perfused. NEUROLOGIC: Cranial nerves II through XII grossly intact. No focal or lateralizing signs. PSYCH: Appropriate affect. Alert and oriented to person, place and time. CLINICAL LABS: Reviewed. Sodium and potassium within normal limits. ASSESSMENT: 1. Acute perforated gastric ulcer. 2. Complicated hemorrhoids 3. Constipation PLAN: 1. Continue sitz baths 2. Await transfer to rehab Objective - Vital Signs Vital signs: Vital Signs Temp 97.4 F L 01/11/21 14:51 Pulse 74 01/11/21 14:51 Resp 16 01/11/21 14:51 BP 98/64 01/11/21 14:51 Pulse Ox 96 01/11/21 14:51 Intake & Output 01/10/21 01/11/21 01/11/21 18:59 06:59 18:59 Output Total 200 Balance -200 Weight 58.5 kg Output: Urine 200 Other: Voiding Method Urinal Urinal Urinal # Voids 6 2 # Bowel Movements 2 - Labs CBC & Chem 7: 01/06/21 07:37 01/11/21 06:52 Labs: Abnormal Lab Results - Last 24 Hours (Table) 01/11/21 Range/Units 06:52 Carbon Dioxide 35 H (22-30) mmol/L BUN 28 H (9-20) mg/dL Glucose 111 H (74-99) mg/dL Magnesium 2.5 H (1.6-2.3) mg/dL Alkaline Phosphatase 216 H (38-126) U/L Total Protein 5.9 L (6.3-8.2) g/dL Albumin 3.0 L (3.5-5.0) g/dL Assessment and Plan (1) Hemorrhoids Current Visit: Yes Status: Acute Code(s): K64.9 - UNSPECIFIED HEMORRHOIDS SNOMED Code(s): 59378537 (2) Constipation Current Visit: Yes Status: Acute Code(s): K59.00 - CONSTIPATION, UNSPECIFIED SNOMED Code(s): 96267942 (3) Gastric ulcer with perforation Current Visit: Yes Status: Acute Code(s): K25.5 - CHRONIC OR UNSPECIFIED GASTRIC ULCER WITH PERFORATION SNOMED Code(s): 9763221
[2021-01-12] MEDS: HYDROcodone/APAP 5-325MG 1 EACH TAB PO PRN (08:38)
[2021-01-12] MEDS: METOPROLOL TARTRATE 25 MG TAB PO SCH (08:40)
[2021-01-12] MEDS: HEPARIN SODIUM,PORCINE/PF 5,000 UNIT/0.5 ML SYRINGE SQ SCH (08:40)
[2021-01-12] MEDS: PANTOPRAZOLE 40 MG/10 ML VIAL IVP SCH (08:40)
[2021-01-12] MEDS: DOCUSATE 100 MG CAP PO SCH (08:40)
--- NOTE | 2021-01-12 12:42 | P.DS ---
Providers Date of admission: 12/28/20 19:54 Expected date of discharge: 01/12/21 Attending physician: Vince Johnson Consults: 12/29/20 09:11 Consult Physician Routine Consulting Provider: Zoey Koch Consult Reason/Comments: medical management Do you want consulting provider notified?: Yes Primary care physician: Zacarias aLy MD Hospital Course: Discharge diagnosis 1. Perforated gastric ulcer, incisional hernia and cholecystitis status post exploratory laparotomy with modified Durga patch repair of gastric ulcer, cholecystectomy and repair of incarcerated incisional hernia. 2. Daily NSAID use likely a contributing factor to patient's perforated gastric ulcer Hospital course This is a 75-year-old male with a known history of peptic ulcer disease with pr ior bleeding ulcers. Last stomach ulcer was about 2 years ago. He does take Mobic daily for his arthritis pain. Patient presented to the hospital with complaints of sharp upper abdominal pain and pain radiating to the left flank. He had CT of the chest CTA of abdomen and pelvis showing moderate amount of intraperitoneal free air. There is also free intraperitoneal fluid. There are air bubbles at the elisha hepatis upper abdomen and also probably in the lesser sac. Perforation from stomach or duodenum is possible. Patient is status post exploratory laparotomy with modified Durga patch repair of gastric ulcer, cholecystectomy and repair of incarcerated incisional hernia. Patient is tolerating diet. He is having bowel movements and flatus. He is afebrile. He has been up and ambulating. He is stable for discharge. His incision site is clean dry and intact. Patient's discharge was held over the weekend due to patient requiring insurance authorization for ECF placement. Patient reevaluated by physical therapy. They've recommended home with home care. Patient now will be discharged home instead of ECF. Home care is being arranged. Please refer to chart for any further details. Physician Shade Maker note has been reviewed by physician. Signing provider agrees with the documented findings, assessment, and plan of care. Patient Condition at Discharge: Stable Plan - Discharge Summary Discharge Rx Participant: No New Discharge Prescriptions: New Metoprolol Tartrate [Lopressor] 25 mg PO BID #30 tab HYDROcodone/APAP 5-325MG [Madison 5-325] 1 tab PO Q6HR PRN 3 Days #12 tab PRN Reason: Pain Pantoprazole Sodium [Protonix] 40 mg PO BID #60 tablet. Continue Multivitamins, Thera [Multivitamin (formulary)] 1 tab PO DAILY Discontinued [id number] [Excedrin] 1 tab PO Q6HR PRN PRN Reason: Migraine Headache Meloxicam [Mobic] 15 mg PO DAILY Esomeprazole Magnesium [NexIUM 24Hr] 20 mg PO DAILY Triamcinolone 0.1% Cream [Kenalog 0.1% Cream] 1 applic TOPICAL BID PRN PRN Reason: Rash Discharge Medication List Multivitamins, Thera [Multivitamin (formulary)] 1 tab PO DAILY 08/07/19 [History] HYDROcodone/APAP 5-325MG [Madison 5-325] 1 tab PO Q6HR PRN 3 Days #12 tab 01/09/21 [Rx] Metoprolol Tartrate [Lopressor] 25 mg PO BID #30 tab 01/09/21 [Rx] Pantoprazole Sodium [Protonix] 40 mg PO BID #60 tablet. 01/12/21 [Rx] Follow up Appointment(s)/Referral(s): [facility] [NON-STAFF] - (Call [facility] for help with housekeeping and Meals on Wheels. ) [facility], [NON-STAFF] - As Needed Zacarias Lay MD [Primary Care Provider] - As Needed (going to [facility]) [facility], [NON-STAFF] - ([facility] will call you to arrange your first visit. ) Vince Johnson MD [STAFF PHYSICIAN] - 01/20/21 3:45 pm ( ) Activity/Diet/Wound Care/Special Instructions: No driving while taking Madison No lifting over 10 pounds You may shower. No soaking or tub baths for 2 weeks Very light activity until you are reevaluated at your follow up appointment with your surgeon Discharge Disposition: HOME WITH HOME HEALTH SERVICES
[2021-01-12 14:04] VITALS: BP 109/65; PULSE 89; RESP 18; TEMP 97.7
== END 2021-01-12 15:49 | disposition home health service (06) | DRG 853 ==
LOC: EC 17:14 → 4SSUR 19:54 → 3SCARD 01-01 13:45 → 3NCARDOBS 01-03 20:23 → 3SCARD 01-03 20:23 → 4SSUR 01-10 06:23
PROVIDERS: ADMIT Surgery; ATTEND Surgery
PROC: 0WQF0ZZ Repair Abdominal Wall, Open Approach (ICD-10-PCS; 2020-12-29)
PROC: 0JB80ZZ Excision of Abdomen Subcutaneous Tissue and Fascia, Open Approach (ICD-10-PCS; 2020-12-29)
PROC: 0D9670Z Drainage of Stomach with Drainage Device, Via Natural or Artificial Opening (ICD-10-PCS; 2020-12-29)
PROC: 0FT40ZZ Resection of Gallbladder, Open Approach (ICD-10-PCS; 2020-12-29)
PROC: 0DU607Z Supplement Stomach with Autologous Tissue Substitute, Open Approach (ICD-10-PCS; 2020-12-29 11:15)
PROC: 02HV33Z Insertion of Infusion Device into Superior Vena Cava, Percutaneous Approach (ICD-10-PCS; 2021-01-01)
PROC: B548ZZA Ultrasonography of Superior Vena Cava, Guidance (ICD-10-PCS; 2021-01-01)
PROC: 3E0436Z Introduction of Nutritional Substance into Central Vein, Percutaneous Approach (ICD-10-PCS; principal; 2021-01-01 14:55)
DX: A41.9 Sepsis, unspecified organism (principal); K25.1 Acute gastric ulcer with perforation; K65.9 Peritonitis, unspecified; K25.5 Chronic or unspecified gastric ulcer with perforation; E87.2 Acidosis; K43.0 Incisional hernia with obstruction, without gangrene; R18.8 Other ascites; Z87.442 Personal history of urinary calculi; K21.9 Gastro-esophageal reflux disease without esophagitis; M19.90 Unspecified osteoarthritis, unspecified site; Z85.46 Personal history of malignant neoplasm of prostate; Z87.11 Personal history of peptic ulcer disease; K82.8 Other specified diseases of gallbladder; R00.0 Tachycardia, unspecified; G43.909 Migraine, unspecified, not intractable, without status migrainosus; Z90.49 Acquired absence of other specified parts of digestive tract; Z88.0 Allergy status to penicillin; Z88.5 Allergy status to narcotic agent; Z79.1 Long term (current) use of non-steroidal anti-inflammatories (NSAID); K81.9 Cholecystitis, unspecified; K59.00 Constipation, unspecified; K64.9 Unspecified hemorrhoids; E87.6 Hypokalemia; E83.39 Other disorders of phosphorus metabolism
CPT/HCPCS: 36415; 36573; 74018; 74019; 74174; 80048; 80053; 81001; 82150; 82330; 83605; 83690; 83735; 84100; 84132; 84478; 84484; 85025; 85027; 85610; 85730; 86850; 86900; 86901; 87040; 88304; 93005; 94760; 96361; 96374; 96375; 99285

== ENCOUNTER → 2022-12-30 | Outpatient (CLI) | payer MEDICARE ==
--- NOTE | 2022-12-30 12:03 | CT ---
EXAMINATION TYPE: CT sacrum wo con CT DLP: 352 mGycm, Automated exposure control for dose reduction was used. DATE OF EXAM: 12/30/2022 10:17 AM COMPARISON: Extremity radiograph same day. CLINICAL INDICATION:Male, 77 years old with history of M54.50 low back pain; Sacral/coccyx pain TECHNIQUE: Axial images were obtained of the sacrum. Additional coronal and sagittal reformatted sean ges and soft tissue and bone window were obtained for review. Contrast used: mL of , Oral contrast used: None FINDINGS: There is no evidence of fracture, subluxation, or dislocation. No significant soft tissue swelling or joint effusion is identified. No focal muscular atrophy or edema is identified. No radiop aque foreign body identified. Osteophyte formation of the sacroiliac joints bilaterally. No suspiciou s lucent or sclerotic lesion identified. The bladder is nondistended. There is prostate gland appears surgically absent. IMPRESSION: No evidence for fracture. Moderate degeneration of the sacroiliac joints bilaterally. No mass or suspicious osseous lesion.
== END | disposition home or self-care (01) ==
LOC: RADCTMAIN 09:40
PROVIDERS: ATTEND Family Medicine
DX: M53.3 Sacrococcygeal disorders, not elsewhere classified (principal); Z73.89 Other problems related to life management difficulty
CPT/HCPCS: 72192

== ENCOUNTER → 2023-01-14 | Outpatient (CLI) | payer MEDICARE ==
--- NOTE | 2023-01-14 10:19 | CA ---
Stress Echo Report Shan Mehta Age: 77 Gender: M : 1945 Exam Date: 01/14/2023 09:37 Exam Location: [place] [facility] Ht (in): 71 Wt (lb): 151 Ordering Physician: Mainor Urbano MD Referring Physician: Betty Bah PAC Fur Blowing Machine Operator: Bernadette Choi RDCS Technologist Procedure CPT: Indication: Z73.89 OTHER PROBLEMS RELATED TO LIFE MANAGEMENT D ICD-9 Codes: Rhythm: Patient History: Asymptomatic Cardiac Medications: Medications in past 24 hours: Contrast: Stress Results Protocol: Taj Total dose(mL): Exercise Duration (min:sec): 1:[address] Depression (mm): Angina Score: Byrne Score: METS: 3.2 Resting HR: 95 Resting BP: 142 / 88 Peak HR: 131 Peak BP: 145 / 78 Max Predicted HR: 144 91 % Max Predicted HR Target HR: 122 Double Product: 55604 Stress Summary: The patient's target heart rate was achieved BP Response: Normal Reason for Termination: Reached target heart rate or work-load Cardiac Symptoms: ECG Analysis Resting ECG: Stress ECG: Arrhythmia: Echo Analysis Resting Echo: Peak Echo Analysis: MEASUREMENTS (Male/Female) Normal Values CONCLUSIONS Baseline EKG revealed a normal sinus rhythm without significant ST-T changes. Patient walked for less than 2 minutes heart rate was 131 bpm which is 91% of predicted maximal. Stress test. Because of fatigue. No ST segment changes to suggest ischemia. Exercise capacity is extremely limited. Baseline echo images revealed normal wall motion wall thickening of all segments. At peak exercise there was good augmentation of left ventricle wall motion wall thickening of all segments suggesting that there is no evidence of any stress-induced ischemia on this study. Final impression: Extremely limited exercise capacity negative stress test by EKG and no evidence of ischemia on the stress echocardiogram however exercise capacity is quite limited heart rate went up to 91% at less than 2 minutes of exercise. Clinical evaluation is suggested Dr. Emma Chi MD (Electronically Signed) Final Date: 14 January 2023 10:18
== END | disposition home or self-care (01) ==
LOC: RADNMMAIN 09:08
PROVIDERS: ATTEND Family Medicine
DX: M54.50 Low back pain, unspecified (principal); Z73.89 Other problems related to life management difficulty
CPT/HCPCS: 93351

== ENCOUNTER → 2023-01-25 | Outpatient (CLI) | payer MEDICARE ==
--- NOTE | 2023-01-25 09:54 | US ---
EXAMINATION TYPE: US abdomen limited DATE OF EXAM: 01/25/2023 COMPARISON: CLINICAL INDICATION: Male, 77 years old with history of R10.13 EPIGASTRIC PAIN; GB removed per patien t. TECHNIQUE: Multiple sonographic images of the right upper quadrant are obtained. FINDINGS: EXAM MEASUREMENTS: Liver Length: 17.0 cm CHD: 0.9 cm Right Kidney: 10.0 x 5.9 x 4.4 cm HEARING SPECIALIST NOTES:Limited due to bowel gas Pancreas: Obscured by bowel gas Liver: Intrahepatic biliary dilatation visualized. Gallbladder: Surgically absent. Dilated ducts seen in GB fossa area, unable to determine if there i s GB remnant. Evidence for sonographic Francisco's sign: neg CBD: Obscured by overlying bowel gas CHD: wnl in size Right Kidney: lateral mid cortical simple appearing cyst = 2.6 x 3.5 x 2.5 cm IMPRESSION: 1. Postoperative changes of cholecystectomy 2. Right renal cyst.
== END | disposition home or self-care (01) ==
LOC: RADUSWWP 08:56
PROVIDERS: ATTEND Family Medicine
DX: N28.1 Cyst of kidney, acquired (principal); R10.13 Epigastric pain; Z90.49 Acquired absence of other specified parts of digestive tract
CPT/HCPCS: 76705

== ENCOUNTER → 2023-02-21 | Outpatient (CLI) | payer MEDICARE ==
[2023-02-21 15:18] LABS: African American GFR (CKD) >90 (>60 ml/min/1.73 sqM); Blood Urea Nitrogen 28 mg/dL (9-20); Non-African American GFR(CKD) 84 (>60 ml/min/1.73 sqM)
--- NOTE | 2023-02-23 09:49 | CT ---
EXAMINATION TYPE: CT abdomen pelvis w con DATE OF EXAM: 02/21/2023 COMPARISON: None available. HISTORY: epigastric pain CT DLP: 662.3 mGycm Automated exposure control for dose reduction was used. TECHNIQUE: Helical acquisition of images was performed from the lung bases through the pelvis. CONTRAST: Performed with Oral Contrast and with IV Contrast, patient injected with 100 mL of Isovue 300. control, adjustment for patient size, and/or use of iterative reconstruction. FINDINGS: LOWER CHEST : The visualized lung bases are clear. There are no pleural or pericardial effusions. ABDOMEN: Liver and Biliary system: Normal. Adrenal glands: Normal. Kidneys and ureters: There is a 3.2 cm simple cyst within the interpolar region of the right kidney. There is a 2.6 cm nonobstructing stone in the upper pole of the right kidney. There is a 3.5 mm nonob structing stone in the interpolar region of the right kidney. There are 2 and 3.5 mm nonobstructing s tones also seen in the lower pole of the right kidney. The left kidney and ureter appear unremarkable . Spleen: Normal. Pancreas: Normal. Gallbladder: Normal. Lymph nodes, Peritoneum and mesentery: There is no mesenteric or retroperitoneal lymphadenopathy. Gastrointestinal tract: There are no dilated loops of bowel or free intraperitoneal air. The appe ndix is not clearly seen with no secondary changes of appendicitis otherwise identified. Aorta/IVC: No aortic aneurysm. IVC normal. Abdominal wall: Normal. PELVIS: Fluid: There is no free fluid in the pelvis. Lymph Nodes: There is no pelvic or inguinal lymphadenopathy.. Urinary bladder: Normal. BONES: There are no osseous destructive lesions.. ADDITIONAL SIGNIFICANT FINDINGS: None. IMPRESSION: 1. No acute process within the abdomen or pelvis. 2. Nonobstructing right renal stones.
== END | disposition home or self-care (01) ==
LOC: RADCTMAIN 14:02
PROVIDERS: ATTEND Family Medicine
DX: N20.0 Calculus of kidney (principal); R10.13 Epigastric pain
CPT/HCPCS: 82565; 84520; 74177; 36415; Q9967